=== PATIENT | male | born 1960 | race African-American/Black ===

== ENCOUNTER → 2016-12-02 | Outpatient (CLI) | payer OTHER ==
[~2016-12-02] MED LIST: ACET500C4 PO; ASPI325T; ATEN25; BACL10TA PO; BACTDSB PO; CALC600T2 PO; CETI-260 PO; DIAZ10TA PO; FAMO40TA7 PO; FURO40TA5 PO; LUTE20CA PO; NIAC500C3 PO; OMEP20TA86 PO; POTA8TAB4 PO; SPIR25TA4 PO; VITA1TAB6 PO
[2016-12-02 10:39] VITALS: BP 133/81
== END | disposition home or self-care (01) ==
LOC: HBOWC 09:14
PROVIDERS: ATTEND Emergency Medicine
DX: L89.613 Pressure ulcer of right heel, stage 3 (principal); I89.0 Lymphedema, not elsewhere classified; I87.8 Other specified disorders of veins; G82.20 Paraplegia, unspecified; L84 Corns and callosities; B35.1 Tinea unguium; Z86.718 Personal history of other venous thrombosis and embolism; M62.562 Muscle wasting and atrophy, not elsewhere classified, left lower leg; M62.561 Muscle wasting and atrophy, not elsewhere classified, right lower leg
CPT/HCPCS: 97597

== ENCOUNTER → 2016-12-18 | Outpatient (CLI) | payer OTHER ==
[~2016-12-18] MED LIST changes: +LIDOCAINE HCL 2% 5 ML JELLY TP ONE
[2016-12-18 10:50] VITALS: BP 132/76
== END | disposition home or self-care (01) ==
LOC: HBOWC 10:19
PROVIDERS: ATTEND Emergency Medicine
DX: L89.613 Pressure ulcer of right heel, stage 3 (principal); I89.0 Lymphedema, not elsewhere classified; I87.8 Other specified disorders of veins; G82.20 Paraplegia, unspecified; L84 Corns and callosities; B35.1 Tinea unguium; M62.562 Muscle wasting and atrophy, not elsewhere classified, left lower leg; M62.561 Muscle wasting and atrophy, not elsewhere classified, right lower leg; Z86.718 Personal history of other venous thrombosis and embolism
CPT/HCPCS: 97597

== ENCOUNTER → 2016-12-30 | Outpatient (CLI) | payer OTHER ==
[~2016-12-30] MED LIST changes: -BACTDSB PO; -LIDOCAINE HCL 2% 5 ML JELLY TP ONE
[2016-12-30 12:06] VITALS: BP 118/72
== END | disposition home or self-care (01) ==
LOC: HBOWC 10:43
PROVIDERS: ATTEND Emergency Medicine
DX: L89.613 Pressure ulcer of right heel, stage 3 (principal); L84 Corns and callosities; I89.0 Lymphedema, not elsewhere classified; G82.20 Paraplegia, unspecified; B35.1 Tinea unguium; Z86.718 Personal history of other venous thrombosis and embolism
CPT/HCPCS: 97597

== ENCOUNTER → 2017-01-13 | Outpatient (CLI) | payer OTHER ==
[2017-01-13 10:21] VITALS: BP 121/81
== END | disposition home or self-care (01) ==
LOC: HBOWC 09:28
PROVIDERS: ATTEND Emergency Medicine
DX: L89.613 Pressure ulcer of right heel, stage 3 (principal); G82.20 Paraplegia, unspecified; I89.0 Lymphedema, not elsewhere classified; L84 Corns and callosities; B35.1 Tinea unguium; M62.562 Muscle wasting and atrophy, not elsewhere classified, left lower leg; M62.561 Muscle wasting and atrophy, not elsewhere classified, right lower leg; Z86.718 Personal history of other venous thrombosis and embolism
CPT/HCPCS: 97597

== ENCOUNTER → 2017-01-27 | Outpatient (CLI) | payer OTHER ==
[2017-01-27 11:54] VITALS: BP 125/77
== END | disposition home or self-care (01) ==
LOC: HBOWC 11:12
PROVIDERS: ATTEND Emergency Medicine
DX: L89.613 Pressure ulcer of right heel, stage 3 (principal); I89.0 Lymphedema, not elsewhere classified; G82.20 Paraplegia, unspecified; I87.8 Other specified disorders of veins; B35.1 Tinea unguium; M62.562 Muscle wasting and atrophy, not elsewhere classified, left lower leg; M62.561 Muscle wasting and atrophy, not elsewhere classified, right lower leg; L84 Corns and callosities; Z86.718 Personal history of other venous thrombosis and embolism
CPT/HCPCS: 97597

== ENCOUNTER → 2017-02-10 | Outpatient (CLI) | payer OTHER ==
[2017-02-10 10:13] VITALS: BP 134/81
== END | disposition home or self-care (01) ==
LOC: HBOWC 09:52
PROVIDERS: ATTEND Emergency Medicine
DX: I87.2 Venous insufficiency (chronic) (peripheral) (principal); L89.613 Pressure ulcer of right heel, stage 3; I89.0 Lymphedema, not elsewhere classified; G82.20 Paraplegia, unspecified; L84 Corns and callosities; B35.1 Tinea unguium; Z86.718 Personal history of other venous thrombosis and embolism
CPT/HCPCS: 97597

== ENCOUNTER → 2017-02-24 | Outpatient (CLI) | payer OTHER ==
[~2017-02-24] MED LIST changes: +DOXY100C PO; +PENI250T4 PO
[2017-02-24 10:02] VITALS: BP 138/73
== END | disposition home or self-care (01) ==
LOC: HBOWC 09:07
PROVIDERS: ATTEND Emergency Medicine
DX: L89.613 Pressure ulcer of right heel, stage 3 (principal); I89.0 Lymphedema, not elsewhere classified; I87.2 Venous insufficiency (chronic) (peripheral); L84 Corns and callosities; B35.1 Tinea unguium; M62.562 Muscle wasting and atrophy, not elsewhere classified, left lower leg; M62.561 Muscle wasting and atrophy, not elsewhere classified, right lower leg; Z86.718 Personal history of other venous thrombosis and embolism; G82.20 Paraplegia, unspecified
CPT/HCPCS: 97597

== ENCOUNTER → 2017-03-10 | Outpatient (CLI) | payer OTHER ==
[2017-03-10 11:00] VITALS: BP 136/73
== END | disposition home or self-care (01) ==
LOC: HBOWC 10:21
PROVIDERS: ATTEND Emergency Medicine
DX: L89.613 Pressure ulcer of right heel, stage 3 (principal); I89.0 Lymphedema, not elsewhere classified; G82.20 Paraplegia, unspecified; L84 Corns and callosities; B35.1 Tinea unguium; I87.2 Venous insufficiency (chronic) (peripheral); I87.8 Other specified disorders of veins; Z86.718 Personal history of other venous thrombosis and embolism
CPT/HCPCS: 97597

== ENCOUNTER → 2017-03-25 | Outpatient (CLI) | payer OTHER ==
[~2017-03-25] MED LIST changes: -DOXY100C PO; -PENI250T4 PO
[2017-03-25 09:37] VITALS: BP 127/71
== END | disposition home or self-care (01) ==
LOC: HBOWC 09:22
PROVIDERS: ATTEND Emergency Medicine Undersea and Hyperbaric Medicine
DX: L89.613 Pressure ulcer of right heel, stage 3 (principal); I89.0 Lymphedema, not elsewhere classified; L84 Corns and callosities; G82.20 Paraplegia, unspecified; B35.1 Tinea unguium; I87.2 Venous insufficiency (chronic) (peripheral); Z86.718 Personal history of other venous thrombosis and embolism
CPT/HCPCS: 97597

== ENCOUNTER → 2017-04-07 | Outpatient (CLI) | payer OTHER ==
[~2017-04-07] MED LIST changes: +DOXY100C PO; +PENI250T4 PO
[2017-04-07 09:42] VITALS: BP 117/65
== END | disposition home or self-care (01) ==
LOC: HBOWC 09:10
PROVIDERS: ATTEND Emergency Medicine
DX: L89.613 Pressure ulcer of right heel, stage 3 (principal); L89.629 Pressure ulcer of left heel, unspecified stage; I89.0 Lymphedema, not elsewhere classified; G82.20 Paraplegia, unspecified; M24.575 Contracture, left foot; M24.574 Contracture, right foot; M24.572 Contracture, left ankle; M24.571 Contracture, right ankle; L84 Corns and callosities; B35.1 Tinea unguium; I87.8 Other specified disorders of veins; Z86.718 Personal history of other venous thrombosis and embolism
CPT/HCPCS: 97597

== ENCOUNTER → 2017-04-21 | Outpatient (CLI) | payer OTHER ==
[2017-04-21 12:19] VITALS: BP 123/68
== END | disposition home or self-care (01) ==
LOC: HBOWC 10:00
PROVIDERS: ATTEND Emergency Medicine
DX: I87.2 Venous insufficiency (chronic) (peripheral) (principal); L89.613 Pressure ulcer of right heel, stage 3; I89.0 Lymphedema, not elsewhere classified; G82.20 Paraplegia, unspecified; L84 Corns and callosities; B35.1 Tinea unguium; Z86.718 Personal history of other venous thrombosis and embolism
CPT/HCPCS: 97597

== ENCOUNTER → 2017-05-05 | Outpatient (CLI) | payer OTHER ==
[~2017-05-05] MED LIST changes: +BACTDSB PO; +BARIUM SULFATE 0.1% SUSPENSION 450 ML BOTTLE ONE; +CEPH500 PO; +CEPH500C2 PO; +CIPR-278 PO; +LEVO500 PO; +SULF1TAB42 PO
[2017-05-05 10:32] VITALS: BP 122/71
== END | disposition home or self-care (01) ==
LOC: HBOWC 09:35
PROVIDERS: ATTEND Emergency Medicine
DX: I87.2 Venous insufficiency (chronic) (peripheral) (principal); L89.613 Pressure ulcer of right heel, stage 3; S91.105A Unspecified open wound of left lesser toe(s) without damage to nail, initial encounter; I89.0 Lymphedema, not elsewhere classified; G82.20 Paraplegia, unspecified; L84 Corns and callosities; B35.1 Tinea unguium; Z86.718 Personal history of other venous thrombosis and embolism; X58.XXXA Exposure to other specified factors, initial encounter; Y99.8 Other external cause status; Y92.89 Other specified places as the place of occurrence of the external cause; Y93.89 Activity, other specified
CPT/HCPCS: 97597; Z7610

== ENCOUNTER → 2017-05-19 | Outpatient (CLI) | payer OTHER ==
[~2017-05-19] MED LIST changes: -BACTDSB PO; -BARIUM SULFATE 0.1% SUSPENSION 450 ML BOTTLE ONE; -CEPH500 PO; -CEPH500C2 PO; -CIPR-278 PO; -LEVO500 PO; -SULF1TAB42 PO
[2017-05-19 10:46] VITALS: BP 149/78
== END | disposition home or self-care (01) ==
LOC: HBOWC 10:22
PROVIDERS: ATTEND Emergency Medicine
DX: L89.613 Pressure ulcer of right heel, stage 3 (principal); I89.0 Lymphedema, not elsewhere classified; G82.20 Paraplegia, unspecified; B35.1 Tinea unguium; L84 Corns and callosities; Z86.718 Personal history of other venous thrombosis and embolism
CPT/HCPCS: 97597

== ENCOUNTER → 2017-06-02 | Outpatient (CLI) | payer OTHER ==
[2017-06-02 10:35] VITALS: BP 139/73
== END | disposition home or self-care (01) ==
LOC: HBOWC 10:18
PROVIDERS: ATTEND Emergency Medicine
DX: I87.2 Venous insufficiency (chronic) (peripheral) (principal); L89.613 Pressure ulcer of right heel, stage 3; I89.0 Lymphedema, not elsewhere classified; L84 Corns and callosities; G82.21 Paraplegia, complete; B35.1 Tinea unguium; Z86.718 Personal history of other venous thrombosis and embolism
CPT/HCPCS: 97597

== ENCOUNTER → 2017-06-16 | Outpatient (CLI) | payer OTHER ==
[2017-06-16 10:35] VITALS: BP 141/74
== END | disposition home or self-care (01) ==
LOC: HBOWC 09:05
PROVIDERS: ATTEND Emergency Medicine
DX: I87.2 Venous insufficiency (chronic) (peripheral) (principal); L89.613 Pressure ulcer of right heel, stage 3; I89.0 Lymphedema, not elsewhere classified; L84 Corns and callosities; G82.20 Paraplegia, unspecified; B35.1 Tinea unguium; Z86.718 Personal history of other venous thrombosis and embolism
CPT/HCPCS: 97597

== ENCOUNTER → 2017-07-01 | Outpatient (CLI) | payer OTHER ==
[2017-07-01 10:35] VITALS: BP 126/71
== END | disposition home or self-care (01) ==
LOC: HBOWC 10:24
PROVIDERS: ATTEND Emergency Medicine Undersea and Hyperbaric Medicine
DX: L89.613 Pressure ulcer of right heel, stage 3 (principal); S91.302D Unspecified open wound, left foot, subsequent encounter; S41.101D Unspecified open wound of right upper arm, subsequent encounter; G82.20 Paraplegia, unspecified; I87.2 Venous insufficiency (chronic) (peripheral); L84 Corns and callosities; B35.1 Tinea unguium; I89.0 Lymphedema, not elsewhere classified; Z86.718 Personal history of other venous thrombosis and embolism; X58.XXXD Exposure to other specified factors, subsequent encounter
CPT/HCPCS: 97597

== ENCOUNTER → 2017-07-14 | Outpatient (CLI) | payer OTHER ==
[~2017-07-14] MED LIST changes: +ASPI-1213; -ASPI325T; -CETI-260 PO; +CETI-290 PO; +OMEP20TA25 PO; -OMEP20TA86 PO
[2017-07-14 09:26] VITALS: BP 145/76
== END | disposition home or self-care (01) ==
LOC: HBOWC 09:10
PROVIDERS: ATTEND Surgery Plastic and Reconstructive Surgery
DX: I87.2 Venous insufficiency (chronic) (peripheral) (principal); L89.613 Pressure ulcer of right heel, stage 3; L84 Corns and callosities; I89.0 Lymphedema, not elsewhere classified; G82.20 Paraplegia, unspecified; Z86.718 Personal history of other venous thrombosis and embolism; B35.1 Tinea unguium
CPT/HCPCS: 97597

== ENCOUNTER → 2017-07-21 | Outpatient (CLI) | payer OTHER ==
[~2017-07-21] MED LIST changes: +LIDOCAINE HCL 2% 5 ML JELLY TP ONE
[2017-07-21 14:04] VITALS: BP 141/79
== END | disposition home or self-care (01) ==
LOC: HBOWC 13:17
PROVIDERS: ATTEND Nurse Practitioner Adult Health
DX: L89.613 Pressure ulcer of right heel, stage 3 (principal); I89.0 Lymphedema, not elsewhere classified; B35.1 Tinea unguium; G82.20 Paraplegia, unspecified; L84 Corns and callosities; Z86.718 Personal history of other venous thrombosis and embolism
CPT/HCPCS: 97597

== ENCOUNTER → 2017-07-28 | Outpatient (CLI) | payer OTHER ==
[~2017-07-28] MED LIST changes: -ATEN25; +ATEN25TA; +CLIN300C3 PO
[2017-07-28 09:37] VITALS: BP 154/78
== END | disposition home or self-care (01) ==
LOC: HBOWC 09:06
PROVIDERS: ATTEND Surgery Plastic and Reconstructive Surgery
DX: L89.613 Pressure ulcer of right heel, stage 3 (principal); I89.0 Lymphedema, not elsewhere classified; I87.2 Venous insufficiency (chronic) (peripheral); G82.21 Paraplegia, complete; M24.575 Contracture, left foot; M24.574 Contracture, right foot; L84 Corns and callosities; B35.1 Tinea unguium; Z86.718 Personal history of other venous thrombosis and embolism
CPT/HCPCS: 97597

== ENCOUNTER → 2017-08-11 | Outpatient (CLI) | payer OTHER ==
[~2017-08-11] MED LIST changes: -DOXY100C PO; -LIDOCAINE HCL 2% 5 ML JELLY TP ONE; -PENI250T4 PO
[2017-08-11 08:56] VITALS: BP 139/78
== END | disposition home or self-care (01) ==
LOC: HBOWC 08:25
PROVIDERS: ATTEND Surgery Plastic and Reconstructive Surgery
DX: L89.613 Pressure ulcer of right heel, stage 3 (principal); L84 Corns and callosities; I89.0 Lymphedema, not elsewhere classified; G82.20 Paraplegia, unspecified; Z86.718 Personal history of other venous thrombosis and embolism; B35.1 Tinea unguium
CPT/HCPCS: 97597

== ENCOUNTER → 2017-08-25 | Outpatient (CLI) | payer OTHER ==
[2017-08-25 09:29] VITALS: BP 147/88
== END | disposition home or self-care (01) ==
LOC: HBOWC 09:19
PROVIDERS: ATTEND Surgery Plastic and Reconstructive Surgery
DX: L89.613 Pressure ulcer of right heel, stage 3 (principal); I89.0 Lymphedema, not elsewhere classified; I87.2 Venous insufficiency (chronic) (peripheral); L84 Corns and callosities; G82.21 Paraplegia, complete; Z86.718 Personal history of other venous thrombosis and embolism
CPT/HCPCS: 97597

== ENCOUNTER → 2017-09-08 | Outpatient (CLI) | payer OTHER ==
[~2017-09-08] MED LIST changes: -CLIN300C3 PO
[2017-09-08 10:02] VITALS: BP 137/78
== END | disposition home or self-care (01) ==
LOC: HBOWC 09:38
PROVIDERS: ATTEND Surgery Plastic and Reconstructive Surgery
DX: L89.613 Pressure ulcer of right heel, stage 3 (principal); L84 Corns and callosities; I89.0 Lymphedema, not elsewhere classified; G82.20 Paraplegia, unspecified; Z86.718 Personal history of other venous thrombosis and embolism; I87.2 Venous insufficiency (chronic) (peripheral); B35.1 Tinea unguium
CPT/HCPCS: 97597

== ENCOUNTER → 2017-09-15 | Outpatient (CLI) | payer OTHER ==
[2017-09-15 11:44] VITALS: BP 147/76
== END | disposition home or self-care (01) ==
LOC: HBOWC 10:40
PROVIDERS: ATTEND Surgery Plastic and Reconstructive Surgery
DX: I87.2 Venous insufficiency (chronic) (peripheral) (principal); L89.613 Pressure ulcer of right heel, stage 3; I89.0 Lymphedema, not elsewhere classified; L84 Corns and callosities; G82.21 Paraplegia, complete; M24.572 Contracture, left ankle; M24.571 Contracture, right ankle; Z86.718 Personal history of other venous thrombosis and embolism
CPT/HCPCS: 97597

== ENCOUNTER → 2017-09-29 | Outpatient (CLI) | payer OTHER ==
[2017-09-29 10:49] VITALS: BP 124/80
== END | disposition home or self-care (01) ==
LOC: HBOWC 10:32
PROVIDERS: ATTEND Surgery Plastic and Reconstructive Surgery
DX: L89.613 Pressure ulcer of right heel, stage 3 (principal); I89.0 Lymphedema, not elsewhere classified; G82.20 Paraplegia, unspecified; L84 Corns and callosities; B35.1 Tinea unguium; Z86.718 Personal history of other venous thrombosis and embolism

== ENCOUNTER → 2017-10-13 | Outpatient (CLI) | payer OTHER ==
[2017-10-13 09:59] VITALS: BP 149/84
== END | disposition home or self-care (01) ==
LOC: HBOWC 09:48
PROVIDERS: ATTEND Surgery Plastic and Reconstructive Surgery
DX: L89.613 Pressure ulcer of right heel, stage 3 (principal); I89.0 Lymphedema, not elsewhere classified; L84 Corns and callosities; G82.20 Paraplegia, unspecified; I87.2 Venous insufficiency (chronic) (peripheral); M24.572 Contracture, left ankle; M24.571 Contracture, right ankle; Z86.718 Personal history of other venous thrombosis and embolism
CPT/HCPCS: 97597

== ENCOUNTER → 2017-10-23 | Outpatient (CLI) | payer OTHER ==
[2017-10-23 10:51] VITALS: BP 123/59
== END | disposition home or self-care (01) ==
LOC: HBOWC 10:02
PROVIDERS: ATTEND Nurse Practitioner Adult Health
DX: L89.613 Pressure ulcer of right heel, stage 3 (principal); I89.0 Lymphedema, not elsewhere classified; G82.21 Paraplegia, complete; B35.1 Tinea unguium; I87.2 Venous insufficiency (chronic) (peripheral); L84 Corns and callosities; M24.575 Contracture, left foot; M24.571 Contracture, right ankle; M24.574 Contracture, right foot; M24.572 Contracture, left ankle; Z86.718 Personal history of other venous thrombosis and embolism
CPT/HCPCS: 97597

== ENCOUNTER → 2017-11-06 | Outpatient (CLI) | payer OTHER ==
[2017-11-06 09:38] VITALS: BP 143/74
== END | disposition home or self-care (01) ==
LOC: HBOWC 09:06
PROVIDERS: ATTEND Nurse Practitioner Adult Health
DX: L89.613 Pressure ulcer of right heel, stage 3 (principal); I89.0 Lymphedema, not elsewhere classified; G82.20 Paraplegia, unspecified; L84 Corns and callosities; B35.1 Tinea unguium; Z86.718 Personal history of other venous thrombosis and embolism
CPT/HCPCS: 11042; 97597

== ENCOUNTER → 2017-11-20 | Outpatient (CLI) | payer OTHER ==
[2017-11-20 10:03] VITALS: BP 117/72
== END | disposition home or self-care (01) ==
LOC: HBOWC 09:13
PROVIDERS: ATTEND Nurse Practitioner Adult Health
DX: L89.619 Pressure ulcer of right heel, unspecified stage (principal); T24.212D Burn of second degree of left thigh, subsequent encounter; S71.102D Unspecified open wound, left thigh, subsequent encounter; T31.0 Burns involving less than 10% of body surface; I89.0 Lymphedema, not elsewhere classified; G82.20 Paraplegia, unspecified; B35.1 Tinea unguium; L84 Corns and callosities; Z86.718 Personal history of other venous thrombosis and embolism; X08.8XXD Exposure to other specified smoke, fire and flames, subsequent encounter
CPT/HCPCS: 11042

== ENCOUNTER → 2017-11-27 | Outpatient (CLI) | payer OTHER ==
[2017-11-27 09:43] VITALS: BP 131/73
== END | disposition home or self-care (01) ==
LOC: HBOWC 09:16
PROVIDERS: ATTEND Nurse Practitioner Adult Health
DX: T24.212D Burn of second degree of left thigh, subsequent encounter (principal); L97.411 Non-pressure chronic ulcer of right heel and midfoot limited to breakdown of skin; L89.619 Pressure ulcer of right heel, unspecified stage; L89.519 Pressure ulcer of right ankle, unspecified stage; G82.20 Paraplegia, unspecified; I89.0 Lymphedema, not elsewhere classified; L84 Corns and callosities; B35.1 Tinea unguium; Z86.718 Personal history of other venous thrombosis and embolism; X08.8XXD Exposure to other specified smoke, fire and flames, subsequent encounter
CPT/HCPCS: 11042

== ENCOUNTER → 2017-12-04 | Outpatient (CLI) | payer OTHER ==
[~2017-12-04] MED LIST changes: +LIDOCAINE HCL 2% 5 ML JELLY TP ONE
[2017-12-04 11:01] VITALS: BP 136/67
== END | disposition home or self-care (01) ==
LOC: HBOWC 10:15
PROVIDERS: ATTEND Nurse Practitioner Adult Health
DX: L89.619 Pressure ulcer of right heel, unspecified stage (principal); L89.519 Pressure ulcer of right ankle, unspecified stage; S91.001D Unspecified open wound, right ankle, subsequent encounter; T24.212D Burn of second degree of left thigh, subsequent encounter; I89.0 Lymphedema, not elsewhere classified; G82.20 Paraplegia, unspecified; I87.2 Venous insufficiency (chronic) (peripheral); T31.0 Burns involving less than 10% of body surface; M24.574 Contracture, right foot; M24.572 Contracture, left ankle; M24.571 Contracture, right ankle; M24.575 Contracture, left foot; B35.1 Tinea unguium; L84 Corns and callosities; Z86.718 Personal history of other venous thrombosis and embolism; X08.8XXD Exposure to other specified smoke, fire and flames, subsequent encounter
CPT/HCPCS: 97597

== ENCOUNTER → 2017-12-11 | Outpatient (CLI) | payer OTHER ==
[~2017-12-11] MED LIST changes: -LIDOCAINE HCL 2% 5 ML JELLY TP ONE
[2017-12-11 10:44] VITALS: BP 123/71
== END | disposition home or self-care (01) ==
LOC: HBOWC 10:15
PROVIDERS: ATTEND Nurse Practitioner Adult Health
DX: L89.612 Pressure ulcer of right heel, stage 2 (principal); I87.2 Venous insufficiency (chronic) (peripheral); L97.311 Non-pressure chronic ulcer of right ankle limited to breakdown of skin; T24.212D Burn of second degree of left thigh, subsequent encounter; L84 Corns and callosities; I89.0 Lymphedema, not elsewhere classified; B35.1 Tinea unguium; G82.21 Paraplegia, complete; T31.0 Burns involving less than 10% of body surface; Z86.718 Personal history of other venous thrombosis and embolism; X08.8XXD Exposure to other specified smoke, fire and flames, subsequent encounter
CPT/HCPCS: 11042

== ENCOUNTER → 2017-12-25 | Outpatient (CLI) | payer OTHER ==
[~2017-12-25] MED LIST changes: +LIDOCAINE HCL 2% 5 ML JELLY TP ONE
[2017-12-25 11:53] VITALS: BP 123/70
== END | disposition home or self-care (01) ==
LOC: HBOWC 11:00
PROVIDERS: ATTEND Nurse Practitioner Adult Health
DX: L89.612 Pressure ulcer of right heel, stage 2 (principal); L89.512 Pressure ulcer of right ankle, stage 2; I87.2 Venous insufficiency (chronic) (peripheral); I89.0 Lymphedema, not elsewhere classified; L84 Corns and callosities; B35.1 Tinea unguium; G82.20 Paraplegia, unspecified; Z86.718 Personal history of other venous thrombosis and embolism

== ENCOUNTER → 2018-01-08 | Outpatient (CLI) | payer OTHER ==
[~2018-01-08] MED LIST changes: -LIDOCAINE HCL 2% 5 ML JELLY TP ONE
[2018-01-08 11:05] VITALS: BP 146/84
== END | disposition home or self-care (01) ==
LOC: HBOWC 10:11
PROVIDERS: ATTEND Nurse Practitioner Adult Health
DX: L89.612 Pressure ulcer of right heel, stage 2 (principal); L89.812 Pressure ulcer of head, stage 2; G82.20 Paraplegia, unspecified; I89.0 Lymphedema, not elsewhere classified; I87.2 Venous insufficiency (chronic) (peripheral); L84 Corns and callosities; Z86.718 Personal history of other venous thrombosis and embolism
CPT/HCPCS: 17250

== ENCOUNTER → 2018-01-22 | Outpatient (CLI) | payer OTHER ==
[~2018-01-22] MED LIST changes: +SULF1TAB42 PO
[2018-01-22 10:33] VITALS: BP 115/77
== END | disposition home or self-care (01) ==
LOC: HBOWC 09:32
PROVIDERS: ATTEND Nurse Practitioner Adult Health
DX: L89.612 Pressure ulcer of right heel, stage 2 (principal); L97.311 Non-pressure chronic ulcer of right ankle limited to breakdown of skin; I89.0 Lymphedema, not elsewhere classified; I87.8 Other specified disorders of veins; B35.1 Tinea unguium; L84 Corns and callosities; G82.20 Paraplegia, unspecified; Z86.718 Personal history of other venous thrombosis and embolism
CPT/HCPCS: 97597

== ENCOUNTER → 2018-02-05 | Outpatient (CLI) | payer OTHER ==
[2018-02-05 09:55] VITALS: BP_SYST 129; BP_DIAS 79; BP_DIAS 93
== END | disposition home or self-care (01) ==
LOC: HBOWC 09:29
PROVIDERS: ATTEND Nurse Practitioner Adult Health
DX: L89.612 Pressure ulcer of right heel, stage 2 (principal); L89.512 Pressure ulcer of right ankle, stage 2; I89.0 Lymphedema, not elsewhere classified; L84 Corns and callosities; G82.20 Paraplegia, unspecified; I87.2 Venous insufficiency (chronic) (peripheral); B35.1 Tinea unguium; Z86.718 Personal history of other venous thrombosis and embolism
CPT/HCPCS: 97597

== ENCOUNTER → 2018-02-19 | Outpatient (CLI) | payer OTHER ==
[2018-02-19 10:23] VITALS: BP 114/70
== END | disposition home or self-care (01) ==
LOC: HBOWC 09:29
PROVIDERS: ATTEND Nurse Practitioner Adult Health
DX: L89.612 Pressure ulcer of right heel, stage 2 (principal); I89.0 Lymphedema, not elsewhere classified; G82.20 Paraplegia, unspecified; B35.1 Tinea unguium; I87.2 Venous insufficiency (chronic) (peripheral); Z86.718 Personal history of other venous thrombosis and embolism

== ENCOUNTER → 2018-03-05 | Outpatient (CLI) | payer OTHER ==
[~2018-03-05] MED LIST changes: +BACTDSB PO; +LIDOCAINE HCL 2% 5 ML JELLY TP ONE; +MUPI1OIN5 TP; +MUPIROCIN CALCIUM 2% 22 GM OINTMENT TP ONE; -SPIR25TA4 PO; +SPIR25TA6 PO
[2018-03-05 09:45] VITALS: BP 135/79
== END | disposition home or self-care (01) ==
LOC: HBOWC 09:06
PROVIDERS: ATTEND Nurse Practitioner Adult Health
DX: L89.612 Pressure ulcer of right heel, stage 2 (principal); L89.893 Pressure ulcer of other site, stage 3; S81.802D Unspecified open wound, left lower leg, subsequent encounter; S81.801D Unspecified open wound, right lower leg, subsequent encounter; I87.2 Venous insufficiency (chronic) (peripheral); I89.0 Lymphedema, not elsewhere classified; M24.572 Contracture, left ankle; M24.571 Contracture, right ankle; G82.20 Paraplegia, unspecified; B35.1 Tinea unguium; L84 Corns and callosities; Z86.718 Personal history of other venous thrombosis and embolism; X58.XXXD Exposure to other specified factors, subsequent encounter
CPT/HCPCS: 11042

== ENCOUNTER → 2018-03-12 | Outpatient (CLI) | payer OTHER ==
[~2018-03-12] MED LIST changes: +CHLORHEXIDINE GLUCONATE 4% 118 ML TOPICAL LIQUID TP ONE; -LIDOCAINE HCL 2% 5 ML JELLY TP ONE
[2018-03-12 09:28] VITALS: BP 138/64
== END | disposition home or self-care (01) ==
LOC: HBOWC 08:53
PROVIDERS: ATTEND Nurse Practitioner Adult Health
DX: L89.893 Pressure ulcer of other site, stage 3 (principal); L89.612 Pressure ulcer of right heel, stage 2; I89.0 Lymphedema, not elsewhere classified; G82.20 Paraplegia, unspecified; B35.1 Tinea unguium; I87.2 Venous insufficiency (chronic) (peripheral); Z86.718 Personal history of other venous thrombosis and embolism

== ENCOUNTER → 2018-03-26 | Outpatient (CLI) | payer OTHER ==
[~2018-03-26] MED LIST changes: -CHLORHEXIDINE GLUCONATE 4% 118 ML TOPICAL LIQUID TP ONE; -MUPIROCIN CALCIUM 2% 22 GM OINTMENT TP ONE; +SPIR25TA4 PO; -SPIR25TA6 PO
[2018-03-26 09:26] VITALS: BP 133/69
== END | disposition home or self-care (01) ==
LOC: HBOWC 09:08
PROVIDERS: ATTEND Nurse Practitioner Adult Health
DX: L89.893 Pressure ulcer of other site, stage 3 (principal); L89.612 Pressure ulcer of right heel, stage 2; S81.801D Unspecified open wound, right lower leg, subsequent encounter; S81.802D Unspecified open wound, left lower leg, subsequent encounter; I89.0 Lymphedema, not elsewhere classified; G82.20 Paraplegia, unspecified; L84 Corns and callosities; B35.1 Tinea unguium; I87.2 Venous insufficiency (chronic) (peripheral); M24.572 Contracture, left ankle; M24.571 Contracture, right ankle; Z86.718 Personal history of other venous thrombosis and embolism; X58.XXXD Exposure to other specified factors, subsequent encounter

== ENCOUNTER → 2018-04-09 | Outpatient (CLI) | payer OTHER ==
[~2018-04-09] MED LIST changes: -SPIR25TA4 PO; +SPIR25TA6 PO
[2018-04-09 10:00] VITALS: BP 147/70
== END | disposition home or self-care (01) ==
LOC: HBOWC 09:22
PROVIDERS: ATTEND Nurse Practitioner Adult Health
DX: L89.612 Pressure ulcer of right heel, stage 2 (principal); L89.893 Pressure ulcer of other site, stage 3; I89.0 Lymphedema, not elsewhere classified; G82.20 Paraplegia, unspecified; I87.2 Venous insufficiency (chronic) (peripheral); L84 Corns and callosities; B35.1 Tinea unguium; Z86.718 Personal history of other venous thrombosis and embolism

== ENCOUNTER → 2018-04-23 | Outpatient (CLI) | payer OTHER ==
[2018-04-23 09:45] VITALS: BP 133/66
== END | disposition home or self-care (01) ==
LOC: HBOWC 09:22
PROVIDERS: ATTEND Nurse Practitioner Adult Health
DX: L89.612 Pressure ulcer of right heel, stage 2 (principal); L89.893 Pressure ulcer of other site, stage 3; I89.0 Lymphedema, not elsewhere classified; G82.20 Paraplegia, unspecified; I87.2 Venous insufficiency (chronic) (peripheral); L84 Corns and callosities; B35.1 Tinea unguium; Z86.718 Personal history of other venous thrombosis and embolism
CPT/HCPCS: 11042

== ENCOUNTER → 2018-05-07 | Outpatient (CLI) | payer OTHER ==
[2018-05-07 09:25] VITALS: BP 124/68
== END | disposition home or self-care (01) ==
LOC: HBOWC 08:48
PROVIDERS: ATTEND Nurse Practitioner Adult Health
DX: L89.612 Pressure ulcer of right heel, stage 2 (principal); I89.0 Lymphedema, not elsewhere classified; G82.20 Paraplegia, unspecified; I87.2 Venous insufficiency (chronic) (peripheral); L84 Corns and callosities; B35.1 Tinea unguium; Z86.718 Personal history of other venous thrombosis and embolism

== ENCOUNTER → 2018-05-21 | Outpatient (CLI) | payer OTHER ==
[~2018-05-21] MED LIST changes: +CALC200T42 PO; +MET500 PO; +VITAMIN D PO; +ZINC50TA64 PO
[2018-05-21 09:43] VITALS: BP 137/90
== END | disposition home or self-care (01) ==
LOC: HBOWC 09:12
PROVIDERS: ATTEND Nurse Practitioner Adult Health
DX: L89.612 Pressure ulcer of right heel, stage 2 (principal); I89.0 Lymphedema, not elsewhere classified; G82.20 Paraplegia, unspecified; I87.2 Venous insufficiency (chronic) (peripheral); L84 Corns and callosities; B35.1 Tinea unguium; Z86.718 Personal history of other venous thrombosis and embolism

== ENCOUNTER → 2018-06-04 | Outpatient (CLI) | payer OTHER ==
[~2018-06-04] MED LIST changes: -ASPI-1213; -BACL10TA PO; -BACTDSB PO; -CALC600T2 PO; -DIAZ10TA PO; -FAMO40TA7 PO; -LUTE20CA PO; -MUPI1OIN5 TP; -NIAC500C3 PO; -OMEP20TA25 PO; -SPIR25TA6 PO; -SULF1TAB42 PO; -VITA1TAB6 PO
[2018-06-04 11:25] VITALS: BP 134/69
== END | disposition home or self-care (01) ==
LOC: HBOWC 11:09
PROVIDERS: ATTEND Nurse Practitioner Adult Health
DX: L89.612 Pressure ulcer of right heel, stage 2 (principal); I89.0 Lymphedema, not elsewhere classified; G82.20 Paraplegia, unspecified; I87.2 Venous insufficiency (chronic) (peripheral); L84 Corns and callosities; B35.1 Tinea unguium; Z86.718 Personal history of other venous thrombosis and embolism
CPT/HCPCS: 97597

== ENCOUNTER → 2018-06-18 | Outpatient (CLI) | payer OTHER ==
[2018-06-18 09:46] VITALS: BP 143/67
== END | disposition home or self-care (01) ==
LOC: HBOWC 09:09
PROVIDERS: ATTEND Nurse Practitioner Adult Health
DX: L89.612 Pressure ulcer of right heel, stage 2 (principal); I89.0 Lymphedema, not elsewhere classified; G82.20 Paraplegia, unspecified; I87.2 Venous insufficiency (chronic) (peripheral); L84 Corns and callosities; B35.1 Tinea unguium; Z86.718 Personal history of other venous thrombosis and embolism

== ENCOUNTER → 2018-07-16 | Outpatient (CLI) | payer OTHER ==
[2018-07-16 10:01] VITALS: BP 139/60
== END | disposition home or self-care (01) ==
LOC: HBOWC 09:09
PROVIDERS: ATTEND Nurse Practitioner Adult Health
DX: L89.612 Pressure ulcer of right heel, stage 2 (principal); I89.0 Lymphedema, not elsewhere classified; G82.20 Paraplegia, unspecified; I87.2 Venous insufficiency (chronic) (peripheral); L84 Corns and callosities; B35.1 Tinea unguium; Z86.718 Personal history of other venous thrombosis and embolism

== ENCOUNTER → 2018-07-30 | Outpatient (CLI) | payer OTHER ==
[~2018-07-30] MED LIST changes: +MUPI15CR TP
[2018-07-30 09:51] VITALS: BP 133/62
== END | disposition home or self-care (01) ==
LOC: HBOWC 09:00
PROVIDERS: ATTEND Nurse Practitioner Adult Health
DX: L89.612 Pressure ulcer of right heel, stage 2 (principal); I89.0 Lymphedema, not elsewhere classified; G82.20 Paraplegia, unspecified; I87.2 Venous insufficiency (chronic) (peripheral); L84 Corns and callosities; B35.1 Tinea unguium; Z86.718 Personal history of other venous thrombosis and embolism
CPT/HCPCS: 97597

== ENCOUNTER → 2018-08-13 | Outpatient (CLI) | payer OTHER ==
[2018-08-13 10:00] VITALS: BP 121/79
== END | disposition home or self-care (01) ==
LOC: HBOWC 09:02
PROVIDERS: ATTEND Nurse Practitioner Adult Health
DX: L89.612 Pressure ulcer of right heel, stage 2 (principal); I89.0 Lymphedema, not elsewhere classified; G82.20 Paraplegia, unspecified; I87.2 Venous insufficiency (chronic) (peripheral); L84 Corns and callosities; B35.1 Tinea unguium; Z86.718 Personal history of other venous thrombosis and embolism

== ENCOUNTER → 2018-08-27 | Outpatient (CLI) | payer OTHER ==
[2018-08-27 09:50] VITALS: BP 128/67
== END | disposition home or self-care (01) ==
LOC: HBOWC 09:07
PROVIDERS: ATTEND Nurse Practitioner Adult Health
DX: L89.612 Pressure ulcer of right heel, stage 2 (principal); I89.0 Lymphedema, not elsewhere classified; G82.20 Paraplegia, unspecified; I87.2 Venous insufficiency (chronic) (peripheral); L84 Corns and callosities; B35.1 Tinea unguium; Z86.718 Personal history of other venous thrombosis and embolism
CPT/HCPCS: 97597

== ENCOUNTER → 2018-09-03 | Outpatient (CLI) | payer OTHER ==
[2018-09-03 10:12] VITALS: BP 147/72
== END | disposition home or self-care (01) ==
LOC: HBOWC 09:23
PROVIDERS: ATTEND Nurse Practitioner Adult Health
DX: L89.612 Pressure ulcer of right heel, stage 2 (principal); I89.0 Lymphedema, not elsewhere classified; I87.2 Venous insufficiency (chronic) (peripheral); L84 Corns and callosities; Z86.718 Personal history of other venous thrombosis and embolism
CPT/HCPCS: 97597

== ENCOUNTER → 2018-09-10 | Outpatient (CLI) | payer OTHER ==
[2018-09-10 09:59] VITALS: BP 137/73
== END | disposition home or self-care (01) ==
LOC: HBOWC 09:08
PROVIDERS: ATTEND Nurse Practitioner Adult Health
DX: L89.612 Pressure ulcer of right heel, stage 2 (principal); I89.0 Lymphedema, not elsewhere classified; I87.2 Venous insufficiency (chronic) (peripheral); L84 Corns and callosities; B35.1 Tinea unguium; Z86.718 Personal history of other venous thrombosis and embolism

== ENCOUNTER → 2018-09-24 | Outpatient (CLI) | payer OTHER ==
[2018-09-24 10:00] VITALS: BP 106/62
== END | disposition home or self-care (01) ==
LOC: HBOWC 09:17
PROVIDERS: ATTEND Nurse Practitioner Adult Health
DX: L89.612 Pressure ulcer of right heel, stage 2 (principal); I89.0 Lymphedema, not elsewhere classified; I87.2 Venous insufficiency (chronic) (peripheral); L84 Corns and callosities; B35.1 Tinea unguium; Z86.718 Personal history of other venous thrombosis and embolism
CPT/HCPCS: 97597

== ENCOUNTER → 2018-10-08 | Outpatient (CLI) | payer OTHER ==
[~2018-10-08] MED LIST changes: +LEVO500 PO; +OXYC-530 PO
[2018-10-08 09:59] VITALS: BP 119/59
== END | disposition home or self-care (01) ==
LOC: HBOWC 09:22
PROVIDERS: ATTEND Nurse Practitioner Adult Health
DX: L89.612 Pressure ulcer of right heel, stage 2 (principal); I89.0 Lymphedema, not elsewhere classified; I87.2 Venous insufficiency (chronic) (peripheral); L84 Corns and callosities; Z86.73 Personal history of transient ischemic attack (TIA), and cerebral infarction without residual deficits
CPT/HCPCS: 97597

== ENCOUNTER → 2018-10-15 | Outpatient (CLI) | payer OTHER ==
[~2018-10-15] MED LIST changes: -MUPI15CR TP
[2018-10-15 10:00] VITALS: BP 133/68
== END | disposition home or self-care (01) ==
LOC: HBOWC 09:26
PROVIDERS: ATTEND Nurse Practitioner Adult Health
DX: L89.612 Pressure ulcer of right heel, stage 2 (principal); S81.001A Unspecified open wound, right knee, initial encounter; I89.0 Lymphedema, not elsewhere classified; I87.2 Venous insufficiency (chronic) (peripheral); L84 Corns and callosities; G82.20 Paraplegia, unspecified; Z86.73 Personal history of transient ischemic attack (TIA), and cerebral infarction without residual deficits; Z86.718 Personal history of other venous thrombosis and embolism; X58.XXXA Exposure to other specified factors, initial encounter; Y93.89 Activity, other specified; Y92.89 Other specified places as the place of occurrence of the external cause; Y99.8 Other external cause status

== ENCOUNTER → 2018-10-29 | Outpatient (CLI) | payer OTHER ==
[~2018-10-29] MED LIST changes: +CETI-170 PO; -CETI-290 PO
[2018-10-29 10:15] VITALS: BP 132/78
== END | disposition home or self-care (01) ==
LOC: HBOWC 09:04
PROVIDERS: ATTEND Nurse Practitioner Adult Health
DX: L89.612 Pressure ulcer of right heel, stage 2 (principal); I89.0 Lymphedema, not elsewhere classified; I87.2 Venous insufficiency (chronic) (peripheral); G82.20 Paraplegia, unspecified; M62.50 Muscle wasting and atrophy, not elsewhere classified, unspecified site; L84 Corns and callosities; Z86.718 Personal history of other venous thrombosis and embolism; Z86.73 Personal history of transient ischemic attack (TIA), and cerebral infarction without residual deficits

== ENCOUNTER → 2018-11-05 | Outpatient (CLI) | payer OTHER ==
[2018-11-05 10:00] VITALS: BP 125/58
== END | disposition home or self-care (01) ==
LOC: HBOWC 09:04
PROVIDERS: ATTEND Nurse Practitioner Adult Health
DX: L89.612 Pressure ulcer of right heel, stage 2 (principal); I89.0 Lymphedema, not elsewhere classified; I87.2 Venous insufficiency (chronic) (peripheral); G82.20 Paraplegia, unspecified; L84 Corns and callosities; Z86.718 Personal history of other venous thrombosis and embolism; Z86.73 Personal history of transient ischemic attack (TIA), and cerebral infarction without residual deficits
CPT/HCPCS: 11042; 97597

== ENCOUNTER → 2018-11-12 | Outpatient (CLI) | payer OTHER ==
[~2018-11-12] MED LIST changes: +LIDOCAINE 4% 50 ML SOLUTION TP ONE
[2018-11-12 10:25] VITALS: BP 119/74
== END | disposition home or self-care (01) ==
LOC: HBOWC 09:11
PROVIDERS: ATTEND Nurse Practitioner Adult Health
DX: L89.612 Pressure ulcer of right heel, stage 2 (principal); I89.0 Lymphedema, not elsewhere classified; I87.2 Venous insufficiency (chronic) (peripheral); L84 Corns and callosities; M62.50 Muscle wasting and atrophy, not elsewhere classified, unspecified site; G82.20 Paraplegia, unspecified; Z86.73 Personal history of transient ischemic attack (TIA), and cerebral infarction without residual deficits; Z86.718 Personal history of other venous thrombosis and embolism
CPT/HCPCS: 97597

== ENCOUNTER → 2018-11-19 | Outpatient (CLI) | payer OTHER ==
[~2018-11-19] MED LIST changes: +LIDOCAINE 2% 5 ML JELLY TP ONE; -LIDOCAINE 4% 50 ML SOLUTION TP ONE
[2018-11-19 10:00] VITALS: BP 141/74
== END | disposition home or self-care (01) ==
LOC: HBOWC 09:27
PROVIDERS: ATTEND Nurse Practitioner Adult Health
DX: L89.612 Pressure ulcer of right heel, stage 2 (principal); I89.0 Lymphedema, not elsewhere classified; I87.2 Venous insufficiency (chronic) (peripheral); L84 Corns and callosities; G82.20 Paraplegia, unspecified; Z86.718 Personal history of other venous thrombosis and embolism; Z86.73 Personal history of transient ischemic attack (TIA), and cerebral infarction without residual deficits
CPT/HCPCS: 97597

== ENCOUNTER → 2018-11-26 | Outpatient (CLI) | payer OTHER ==
[~2018-11-26] MED LIST changes: -LIDOCAINE 2% 5 ML JELLY TP ONE
[2018-11-26 09:56] VITALS: BP 154/78
== END | disposition home or self-care (01) ==
LOC: HBOWC 09:35
PROVIDERS: ATTEND Nurse Practitioner Adult Health
DX: L89.612 Pressure ulcer of right heel, stage 2 (principal); I89.0 Lymphedema, not elsewhere classified; I87.2 Venous insufficiency (chronic) (peripheral); L84 Corns and callosities; G82.20 Paraplegia, unspecified; Z86.718 Personal history of other venous thrombosis and embolism; Z86.73 Personal history of transient ischemic attack (TIA), and cerebral infarction without residual deficits
CPT/HCPCS: 97597

== ENCOUNTER → 2018-12-03 | Outpatient (CLI) | payer OTHER ==
[2018-12-03 10:00] VITALS: BP 107/68
== END | disposition home or self-care (01) ==
LOC: HBOWC 09:20
PROVIDERS: ATTEND Nurse Practitioner Adult Health
DX: L89.612 Pressure ulcer of right heel, stage 2 (principal); I87.2 Venous insufficiency (chronic) (peripheral); I89.0 Lymphedema, not elsewhere classified; L84 Corns and callosities; M62.569 Muscle wasting and atrophy, not elsewhere classified, unspecified lower leg; G82.20 Paraplegia, unspecified; Z86.718 Personal history of other venous thrombosis and embolism; Z86.73 Personal history of transient ischemic attack (TIA), and cerebral infarction without residual deficits
CPT/HCPCS: 97597

== ENCOUNTER → 2018-12-10 | Outpatient (CLI) | payer OTHER ==
[2018-12-10 10:28] VITALS: BP 122/76
== END | disposition home or self-care (01) ==
LOC: HBOWC 09:36
PROVIDERS: ATTEND Nurse Practitioner Adult Health
DX: L89.612 Pressure ulcer of right heel, stage 2 (principal); I89.0 Lymphedema, not elsewhere classified; I87.2 Venous insufficiency (chronic) (peripheral); L84 Corns and callosities; G82.20 Paraplegia, unspecified; Z86.718 Personal history of other venous thrombosis and embolism; Z86.73 Personal history of transient ischemic attack (TIA), and cerebral infarction without residual deficits
CPT/HCPCS: 97597

== ENCOUNTER → 2018-12-17 | Outpatient (CLI) | payer OTHER ==
[2018-12-17 11:00] VITALS: BP 107/75
== END | disposition home or self-care (01) ==
LOC: HBOWC 10:53
PROVIDERS: ATTEND Nurse Practitioner Adult Health
DX: L89.612 Pressure ulcer of right heel, stage 2 (principal); I89.0 Lymphedema, not elsewhere classified; I87.2 Venous insufficiency (chronic) (peripheral); G82.20 Paraplegia, unspecified; L84 Corns and callosities; Z86.718 Personal history of other venous thrombosis and embolism; Z86.73 Personal history of transient ischemic attack (TIA), and cerebral infarction without residual deficits
CPT/HCPCS: 97597

== ENCOUNTER → 2018-12-24 | Outpatient (CLI) | payer OTHER ==
[~2018-12-24] MED LIST changes: -CETI-170 PO; +CETI10TA59 PO
[2018-12-24 10:37] VITALS: BP 120/68
== END | disposition home or self-care (01) ==
LOC: HBOWC 09:30
PROVIDERS: ATTEND Nurse Practitioner Adult Health
DX: L89.612 Pressure ulcer of right heel, stage 2 (principal); S90.412A Abrasion, left great toe, initial encounter; L84 Corns and callosities; I89.0 Lymphedema, not elsewhere classified; I87.2 Venous insufficiency (chronic) (peripheral); G82.20 Paraplegia, unspecified; Z86.73 Personal history of transient ischemic attack (TIA), and cerebral infarction without residual deficits; Z86.718 Personal history of other venous thrombosis and embolism; X58.XXXA Exposure to other specified factors, initial encounter; Y93.89 Activity, other specified; Y92.89 Other specified places as the place of occurrence of the external cause; Y99.8 Other external cause status
CPT/HCPCS: 97605

== ENCOUNTER → 2018-12-31 | Outpatient (CLI) | payer OTHER ==
[2018-12-31 10:42] VITALS: BP 128/72
== END | disposition home or self-care (01) ==
LOC: HBOWC 09:19
PROVIDERS: ATTEND Nurse Practitioner Adult Health
DX: L89.612 Pressure ulcer of right heel, stage 2 (principal); S90.412D Abrasion, left great toe, subsequent encounter; I89.0 Lymphedema, not elsewhere classified; I87.2 Venous insufficiency (chronic) (peripheral); G82.20 Paraplegia, unspecified; M62.572 Muscle wasting and atrophy, not elsewhere classified, left ankle and foot; M62.571 Muscle wasting and atrophy, not elsewhere classified, right ankle and foot; L84 Corns and callosities; M24.572 Contracture, left ankle; M24.571 Contracture, right ankle; M24.575 Contracture, left foot; M24.574 Contracture, right foot; Z86.73 Personal history of transient ischemic attack (TIA), and cerebral infarction without residual deficits; Z86.718 Personal history of other venous thrombosis and embolism; X58.XXXD Exposure to other specified factors, subsequent encounter
CPT/HCPCS: 97597

== ENCOUNTER → 2019-01-07 | Outpatient (CLI) | payer OTHER ==
[2019-01-07 09:10] VITALS: BP 131/68
== END | disposition home or self-care (01) ==
LOC: HBOWC 09:03
PROVIDERS: ATTEND Nurse Practitioner Adult Health
DX: L89.612 Pressure ulcer of right heel, stage 2 (principal); S90.412D Abrasion, left great toe, subsequent encounter; I89.0 Lymphedema, not elsewhere classified; I87.2 Venous insufficiency (chronic) (peripheral); G82.20 Paraplegia, unspecified; M62.572 Muscle wasting and atrophy, not elsewhere classified, left ankle and foot; M62.571 Muscle wasting and atrophy, not elsewhere classified, right ankle and foot; L84 Corns and callosities; M24.572 Contracture, left ankle; M24.575 Contracture, left foot; M24.574 Contracture, right foot; Z86.718 Personal history of other venous thrombosis and embolism; X58.XXXD Exposure to other specified factors, subsequent encounter
CPT/HCPCS: 97597

== ENCOUNTER → 2019-01-14 | Outpatient (CLI) | payer OTHER ==
[2019-01-14 10:20] VITALS: BP 132/90
== END | disposition home or self-care (01) ==
LOC: HBOWC 08:39
PROVIDERS: ATTEND Nurse Practitioner Adult Health
DX: L89.612 Pressure ulcer of right heel, stage 2 (principal); S90.412D Abrasion, left great toe, subsequent encounter; I89.0 Lymphedema, not elsewhere classified; I87.2 Venous insufficiency (chronic) (peripheral); L84 Corns and callosities; M62.562 Muscle wasting and atrophy, not elsewhere classified, left lower leg; M62.561 Muscle wasting and atrophy, not elsewhere classified, right lower leg; M24.572 Contracture, left ankle; M24.571 Contracture, right ankle; M24.574 Contracture, right foot; M24.575 Contracture, left foot; G82.20 Paraplegia, unspecified; Z86.718 Personal history of other venous thrombosis and embolism; Z86.73 Personal history of transient ischemic attack (TIA), and cerebral infarction without residual deficits; X58.XXXD Exposure to other specified factors, subsequent encounter
CPT/HCPCS: 97597

== ENCOUNTER → 2019-01-21 | Outpatient (CLI) | payer OTHER ==
[2019-01-21 09:56] VITALS: BP 131/64
== END | disposition home or self-care (01) ==
LOC: HBOWC 09:14
PROVIDERS: ATTEND Nurse Practitioner Adult Health
DX: L89.612 Pressure ulcer of right heel, stage 2 (principal); S90.412D Abrasion, left great toe, subsequent encounter; I89.0 Lymphedema, not elsewhere classified; I87.2 Venous insufficiency (chronic) (peripheral); L84 Corns and callosities; M24.575 Contracture, left foot; M24.574 Contracture, right foot; M24.571 Contracture, right ankle; M24.572 Contracture, left ankle; G82.20 Paraplegia, unspecified; Z86.718 Personal history of other venous thrombosis and embolism; Z86.73 Personal history of transient ischemic attack (TIA), and cerebral infarction without residual deficits; X58.XXXD Exposure to other specified factors, subsequent encounter

== ENCOUNTER → 2019-01-28 | Outpatient (CLI) | payer OTHER ==
[2019-01-28 10:17] VITALS: BP 130/76
== END | disposition home or self-care (01) ==
LOC: HBOWC 09:18
PROVIDERS: ATTEND Nurse Practitioner Adult Health
DX: L89.612 Pressure ulcer of right heel, stage 2 (principal); S90.412D Abrasion, left great toe, subsequent encounter; I89.0 Lymphedema, not elsewhere classified; I87.2 Venous insufficiency (chronic) (peripheral); L84 Corns and callosities; M24.575 Contracture, left foot; M24.574 Contracture, right foot; M24.571 Contracture, right ankle; M24.572 Contracture, left ankle; M62.562 Muscle wasting and atrophy, not elsewhere classified, left lower leg; M62.561 Muscle wasting and atrophy, not elsewhere classified, right lower leg; G82.20 Paraplegia, unspecified; Z86.73 Personal history of transient ischemic attack (TIA), and cerebral infarction without residual deficits; Z86.718 Personal history of other venous thrombosis and embolism; X58.XXXD Exposure to other specified factors, subsequent encounter

== ENCOUNTER → 2019-02-01 | Outpatient (CLI) | payer OTHER | END | disposition home or self-care (01) | LOC: RADPV 12:04 | PROVIDERS: ATTEND Nurse Practitioner Adult Health | DX: L89.612 Pressure ulcer of right heel, stage 2 (principal) | CPT/HCPCS: 93925; 93970 ==

== ENCOUNTER → 2019-02-04 | Outpatient (CLI) | payer OTHER ==
[2019-02-04 09:50] VITALS: BP 147/80
== END | disposition home or self-care (01) ==
LOC: HBOWC 09:14
PROVIDERS: ATTEND Nurse Practitioner Adult Health
DX: L89.612 Pressure ulcer of right heel, stage 2 (principal); L97.521 Non-pressure chronic ulcer of other part of left foot limited to breakdown of skin; I89.0 Lymphedema, not elsewhere classified; I87.2 Venous insufficiency (chronic) (peripheral); L84 Corns and callosities; M24.574 Contracture, right foot; M24.575 Contracture, left foot; M24.572 Contracture, left ankle; M24.571 Contracture, right ankle; G82.20 Paraplegia, unspecified; M62.562 Muscle wasting and atrophy, not elsewhere classified, left lower leg; M62.561 Muscle wasting and atrophy, not elsewhere classified, right lower leg; Z86.73 Personal history of transient ischemic attack (TIA), and cerebral infarction without residual deficits; Z86.718 Personal history of other venous thrombosis and embolism

== ENCOUNTER → 2019-02-11 | Outpatient (CLI) | payer OTHER ==
[2019-02-11 10:00] VITALS: BP 109/70
== END | disposition home or self-care (01) ==
LOC: HBOWC 09:16
PROVIDERS: ATTEND Nurse Practitioner Adult Health
DX: L89.612 Pressure ulcer of right heel, stage 2 (principal); L97.521 Non-pressure chronic ulcer of other part of left foot limited to breakdown of skin; I89.0 Lymphedema, not elsewhere classified; I87.2 Venous insufficiency (chronic) (peripheral); L84 Corns and callosities; M24.575 Contracture, left foot; M24.574 Contracture, right foot; M24.571 Contracture, right ankle; M24.572 Contracture, left ankle; G82.20 Paraplegia, unspecified; M62.562 Muscle wasting and atrophy, not elsewhere classified, left lower leg; M62.561 Muscle wasting and atrophy, not elsewhere classified, right lower leg; Z86.718 Personal history of other venous thrombosis and embolism; Z86.73 Personal history of transient ischemic attack (TIA), and cerebral infarction without residual deficits

== ENCOUNTER → 2019-02-18 | Outpatient (CLI) | payer OTHER ==
[2019-02-18 10:06] VITALS: BP 124/76
== END | disposition home or self-care (01) ==
LOC: HBOWC 08:55
PROVIDERS: ATTEND Nurse Practitioner Adult Health
DX: L89.612 Pressure ulcer of right heel, stage 2 (principal); L97.521 Non-pressure chronic ulcer of other part of left foot limited to breakdown of skin; I89.0 Lymphedema, not elsewhere classified; I87.2 Venous insufficiency (chronic) (peripheral); L84 Corns and callosities; M24.575 Contracture, left foot; M24.574 Contracture, right foot; M24.571 Contracture, right ankle; M24.572 Contracture, left ankle; G82.20 Paraplegia, unspecified; M62.562 Muscle wasting and atrophy, not elsewhere classified, left lower leg; M62.561 Muscle wasting and atrophy, not elsewhere classified, right lower leg; Z86.718 Personal history of other venous thrombosis and embolism; Z86.73 Personal history of transient ischemic attack (TIA), and cerebral infarction without residual deficits

== ENCOUNTER → 2019-02-25 | Outpatient (CLI) | payer OTHER ==
[2019-02-25 10:00] VITALS: BP 140/75
== END | disposition home or self-care (01) ==
LOC: HBOWC 09:13
PROVIDERS: ATTEND Nurse Practitioner Adult Health
DX: L89.612 Pressure ulcer of right heel, stage 2 (principal); L97.521 Non-pressure chronic ulcer of other part of left foot limited to breakdown of skin; I89.0 Lymphedema, not elsewhere classified; I87.2 Venous insufficiency (chronic) (peripheral); L84 Corns and callosities; M24.575 Contracture, left foot; M24.574 Contracture, right foot; M24.571 Contracture, right ankle; M24.572 Contracture, left ankle; G82.20 Paraplegia, unspecified; M62.562 Muscle wasting and atrophy, not elsewhere classified, left lower leg; M62.561 Muscle wasting and atrophy, not elsewhere classified, right lower leg; Z86.718 Personal history of other venous thrombosis and embolism; Z86.73 Personal history of transient ischemic attack (TIA), and cerebral infarction without residual deficits

== ENCOUNTER → 2019-03-04 | Outpatient (CLI) | payer OTHER ==
[2019-03-04 09:38] VITALS: BP 144/66
== END | disposition home or self-care (01) ==
LOC: HBOWC 08:11
PROVIDERS: ATTEND Nurse Practitioner Adult Health
DX: L89.612 Pressure ulcer of right heel, stage 2 (principal); L97.521 Non-pressure chronic ulcer of other part of left foot limited to breakdown of skin; I89.0 Lymphedema, not elsewhere classified; I87.2 Venous insufficiency (chronic) (peripheral); L84 Corns and callosities; M24.575 Contracture, left foot; M24.574 Contracture, right foot; M24.571 Contracture, right ankle; M24.572 Contracture, left ankle; G82.20 Paraplegia, unspecified; M62.562 Muscle wasting and atrophy, not elsewhere classified, left lower leg; M62.561 Muscle wasting and atrophy, not elsewhere classified, right lower leg; Z86.718 Personal history of other venous thrombosis and embolism; Z86.73 Personal history of transient ischemic attack (TIA), and cerebral infarction without residual deficits

== ENCOUNTER → 2019-03-11 | Outpatient (CLI) | payer OTHER ==
[2019-03-11 09:42] VITALS: BP 132/74
== END | disposition home or self-care (01) ==
LOC: HBOWC 09:12
PROVIDERS: ATTEND Nurse Practitioner Adult Health
DX: L89.612 Pressure ulcer of right heel, stage 2 (principal); L97.521 Non-pressure chronic ulcer of other part of left foot limited to breakdown of skin; I89.0 Lymphedema, not elsewhere classified; I87.2 Venous insufficiency (chronic) (peripheral); L84 Corns and callosities; M24.575 Contracture, left foot; M24.574 Contracture, right foot; M24.571 Contracture, right ankle; M24.572 Contracture, left ankle; M62.561 Muscle wasting and atrophy, not elsewhere classified, right lower leg; Z86.718 Personal history of other venous thrombosis and embolism; Z86.73 Personal history of transient ischemic attack (TIA), and cerebral infarction without residual deficits

== ENCOUNTER → 2019-03-18 | Outpatient (CLI) | payer OTHER ==
[2019-03-18 10:24] VITALS: BP 128/70
== END | disposition home or self-care (01) ==
LOC: HBOWC 09:20
PROVIDERS: ATTEND Nurse Practitioner Adult Health
DX: L89.612 Pressure ulcer of right heel, stage 2 (principal); L97.521 Non-pressure chronic ulcer of other part of left foot limited to breakdown of skin; I89.0 Lymphedema, not elsewhere classified; I87.2 Venous insufficiency (chronic) (peripheral); L84 Corns and callosities; M24.575 Contracture, left foot; M24.574 Contracture, right foot; M24.571 Contracture, right ankle; M24.572 Contracture, left ankle; M62.561 Muscle wasting and atrophy, not elsewhere classified, right lower leg; Z86.718 Personal history of other venous thrombosis and embolism; Z86.73 Personal history of transient ischemic attack (TIA), and cerebral infarction without residual deficits

== ENCOUNTER → 2019-04-01 | Outpatient (CLI) | payer OTHER ==
[2019-04-01 09:30] VITALS: BP 155/74
== END | disposition home or self-care (01) ==
LOC: HBOWC 09:09
PROVIDERS: ATTEND Nurse Practitioner Adult Health
DX: L89.612 Pressure ulcer of right heel, stage 2 (principal); L97.521 Non-pressure chronic ulcer of other part of left foot limited to breakdown of skin; I89.0 Lymphedema, not elsewhere classified; I87.2 Venous insufficiency (chronic) (peripheral); L84 Corns and callosities; M24.575 Contracture, left foot; M24.574 Contracture, right foot; M24.571 Contracture, right ankle; M24.572 Contracture, left ankle; M62.561 Muscle wasting and atrophy, not elsewhere classified, right lower leg; Z86.718 Personal history of other venous thrombosis and embolism; Z86.73 Personal history of transient ischemic attack (TIA), and cerebral infarction without residual deficits
CPT/HCPCS: 97597

== ENCOUNTER → 2019-04-08 | Outpatient (CLI) | payer OTHER ==
[2019-04-08 11:47] VITALS: BP 142/77
== END | disposition home or self-care (01) ==
LOC: HBOWC 09:24
PROVIDERS: ATTEND Nurse Practitioner Adult Health
DX: L89.612 Pressure ulcer of right heel, stage 2 (principal); L97.521 Non-pressure chronic ulcer of other part of left foot limited to breakdown of skin; I89.0 Lymphedema, not elsewhere classified; I87.2 Venous insufficiency (chronic) (peripheral); L84 Corns and callosities; M24.575 Contracture, left foot; M24.574 Contracture, right foot; M24.571 Contracture, right ankle; M24.572 Contracture, left ankle; M62.561 Muscle wasting and atrophy, not elsewhere classified, right lower leg; Z86.718 Personal history of other venous thrombosis and embolism; Z86.73 Personal history of transient ischemic attack (TIA), and cerebral infarction without residual deficits
CPT/HCPCS: 97597

== ENCOUNTER → 2019-04-23 | Outpatient (CLI) | payer OTHER ==
[~2019-04-23] MED LIST changes: +LIDOCAINE 2% 5 ML JELLY TP ONE; -MET500 PO; +METH500T7 PO
[2019-04-23 11:25] VITALS: BP 100/65
== END | disposition home or self-care (01) ==
LOC: HBOWC 09:27
PROVIDERS: ATTEND Podiatrist
DX: L89.612 Pressure ulcer of right heel, stage 2 (principal); L97.521 Non-pressure chronic ulcer of other part of left foot limited to breakdown of skin; I89.0 Lymphedema, not elsewhere classified; I87.2 Venous insufficiency (chronic) (peripheral); L84 Corns and callosities; M24.575 Contracture, left foot; M24.574 Contracture, right foot; M24.571 Contracture, right ankle; M24.572 Contracture, left ankle; M62.561 Muscle wasting and atrophy, not elsewhere classified, right lower leg; Z86.718 Personal history of other venous thrombosis and embolism; Z86.73 Personal history of transient ischemic attack (TIA), and cerebral infarction without residual deficits
CPT/HCPCS: 11042

== ENCOUNTER → 2019-05-06 | Outpatient (CLI) | payer OTHER ==
[~2019-05-06] MED LIST changes: -LIDOCAINE 2% 5 ML JELLY TP ONE
[2019-05-06 09:50] VITALS: BP 144/78
== END | disposition home or self-care (01) ==
LOC: HBOWC 08:44
PROVIDERS: ATTEND Nurse Practitioner Adult Health
DX: L89.612 Pressure ulcer of right heel, stage 2 (principal); L97.521 Non-pressure chronic ulcer of other part of left foot limited to breakdown of skin; I89.0 Lymphedema, not elsewhere classified; I87.2 Venous insufficiency (chronic) (peripheral); L84 Corns and callosities; M24.575 Contracture, left foot; M24.574 Contracture, right foot; M24.571 Contracture, right ankle; M24.572 Contracture, left ankle; M62.561 Muscle wasting and atrophy, not elsewhere classified, right lower leg; Z86.718 Personal history of other venous thrombosis and embolism; Z86.73 Personal history of transient ischemic attack (TIA), and cerebral infarction without residual deficits
CPT/HCPCS: 97597

== ENCOUNTER → 2019-05-20 | Outpatient (CLI) | payer OTHER ==
[2019-05-20 10:04] VITALS: BP 123/59
== END | disposition home or self-care (01) ==
LOC: HBOWC 09:23
PROVIDERS: ATTEND Nurse Practitioner Adult Health
DX: L89.612 Pressure ulcer of right heel, stage 2 (principal); I89.0 Lymphedema, not elsewhere classified; I87.2 Venous insufficiency (chronic) (peripheral); L84 Corns and callosities; G82.20 Paraplegia, unspecified; M62.472 Contracture of muscle, left ankle and foot; M62.471 Contracture of muscle, right ankle and foot; Z86.718 Personal history of other venous thrombosis and embolism; Z86.73 Personal history of transient ischemic attack (TIA), and cerebral infarction without residual deficits
CPT/HCPCS: 97597

== ENCOUNTER → 2019-06-03 | Outpatient (CLI) | payer OTHER ==
[~2019-06-03] MED LIST changes: +LIDOCAINE 2% 5 ML JELLY TP ONE
[2019-06-03 09:39] VITALS: BP 142/72
== END | disposition home or self-care (01) ==
LOC: HBOWC 09:20
PROVIDERS: ATTEND Nurse Practitioner Adult Health
DX: L89.612 Pressure ulcer of right heel, stage 2 (principal); I89.0 Lymphedema, not elsewhere classified; I87.2 Venous insufficiency (chronic) (peripheral); L84 Corns and callosities; M62.472 Contracture of muscle, left ankle and foot; M62.471 Contracture of muscle, right ankle and foot; L60.2 Onychogryphosis; G82.20 Paraplegia, unspecified; Z86.718 Personal history of other venous thrombosis and embolism; Z86.73 Personal history of transient ischemic attack (TIA), and cerebral infarction without residual deficits
CPT/HCPCS: 97597

== ENCOUNTER → 2019-06-10 | Outpatient (CLI) | payer OTHER ==
[~2019-06-10] MED LIST changes: -LIDOCAINE 2% 5 ML JELLY TP ONE
[2019-06-10 10:57] VITALS: BP 100/74
== END | disposition home or self-care (01) ==
LOC: HBOWC 08:54
PROVIDERS: ATTEND Nurse Practitioner Adult Health
DX: L89.612 Pressure ulcer of right heel, stage 2 (principal); I89.0 Lymphedema, not elsewhere classified; I87.2 Venous insufficiency (chronic) (peripheral); L84 Corns and callosities; M24.575 Contracture, left foot; M24.571 Contracture, right ankle; M24.572 Contracture, left ankle; M24.574 Contracture, right foot; G82.20 Paraplegia, unspecified; M62.562 Muscle wasting and atrophy, not elsewhere classified, left lower leg; M62.561 Muscle wasting and atrophy, not elsewhere classified, right lower leg; Z86.718 Personal history of other venous thrombosis and embolism; Z86.73 Personal history of transient ischemic attack (TIA), and cerebral infarction without residual deficits
CPT/HCPCS: 97597

== ENCOUNTER → 2019-06-17 | Outpatient (CLI) | payer OTHER ==
[~2019-06-17] MED LIST changes: +LIDOCAINE 2% 5 ML JELLY ONE
[2019-06-17 10:04] VITALS: BP 138/72
== END | disposition home or self-care (01) ==
LOC: HBOWC 09:02
PROVIDERS: ATTEND Nurse Practitioner Adult Health
DX: L89.612 Pressure ulcer of right heel, stage 2 (principal); I89.0 Lymphedema, not elsewhere classified; I87.2 Venous insufficiency (chronic) (peripheral); L84 Corns and callosities; M24.575 Contracture, left foot; M24.571 Contracture, right ankle; M24.572 Contracture, left ankle; G82.20 Paraplegia, unspecified; M62.562 Muscle wasting and atrophy, not elsewhere classified, left lower leg; M62.561 Muscle wasting and atrophy, not elsewhere classified, right lower leg; Z86.718 Personal history of other venous thrombosis and embolism; Z86.73 Personal history of transient ischemic attack (TIA), and cerebral infarction without residual deficits
CPT/HCPCS: 11042

== ENCOUNTER → 2019-06-24 | Outpatient (CLI) | payer OTHER ==
[~2019-06-24] MED LIST changes: -LIDOCAINE 2% 5 ML JELLY ONE
[2019-06-24 10:04] VITALS: BP 100/65
== END | disposition home or self-care (01) ==
LOC: HBOWC 09:22
PROVIDERS: ATTEND Nurse Practitioner Adult Health
DX: L89.612 Pressure ulcer of right heel, stage 2 (principal); I89.0 Lymphedema, not elsewhere classified; I87.2 Venous insufficiency (chronic) (peripheral); L84 Corns and callosities; M24.575 Contracture, left foot; M24.571 Contracture, right ankle; M24.572 Contracture, left ankle; G82.20 Paraplegia, unspecified; M62.562 Muscle wasting and atrophy, not elsewhere classified, left lower leg; M62.561 Muscle wasting and atrophy, not elsewhere classified, right lower leg; Z86.718 Personal history of other venous thrombosis and embolism; Z86.73 Personal history of transient ischemic attack (TIA), and cerebral infarction without residual deficits
CPT/HCPCS: 97597

== ENCOUNTER → 2019-07-01 | Outpatient (CLI) | payer OTHER ==
[2019-07-01 09:42] VITALS: BP 125/72
== END | disposition home or self-care (01) ==
LOC: HBOWC 09:07
PROVIDERS: ATTEND Nurse Practitioner Adult Health
DX: L89.612 Pressure ulcer of right heel, stage 2 (principal); I89.0 Lymphedema, not elsewhere classified; I87.2 Venous insufficiency (chronic) (peripheral); L84 Corns and callosities; M24.574 Contracture, right foot; M24.575 Contracture, left foot; M24.571 Contracture, right ankle; M24.572 Contracture, left ankle; G82.20 Paraplegia, unspecified; Z86.718 Personal history of other venous thrombosis and embolism; Z86.73 Personal history of transient ischemic attack (TIA), and cerebral infarction without residual deficits; B35.1 Tinea unguium

== ENCOUNTER → 2019-07-08 | Outpatient (CLI) | payer OTHER ==
[~2019-07-08] MED LIST changes: +LIDOCAINE 2% 5 ML JELLY TP ONE
[2019-07-08 10:00] VITALS: BP 141/70
== END | disposition home or self-care (01) ==
LOC: HBOWC 09:13
PROVIDERS: ATTEND Nurse Practitioner Adult Health
DX: L89.612 Pressure ulcer of right heel, stage 2 (principal); I89.0 Lymphedema, not elsewhere classified; I87.2 Venous insufficiency (chronic) (peripheral); L84 Corns and callosities; M24.574 Contracture, right foot; M24.575 Contracture, left foot; M24.571 Contracture, right ankle; M24.572 Contracture, left ankle; G82.20 Paraplegia, unspecified; Z86.718 Personal history of other venous thrombosis and embolism; Z86.73 Personal history of transient ischemic attack (TIA), and cerebral infarction without residual deficits; B35.1 Tinea unguium

== ENCOUNTER → 2019-07-22 | Outpatient (CLI) | payer OTHER ==
[~2019-07-22] MED LIST changes: -LIDOCAINE 2% 5 ML JELLY TP ONE
[2019-07-22 10:48] VITALS: BP 115/70
== END | disposition home or self-care (01) ==
LOC: HBOWC 09:47
PROVIDERS: ATTEND Nurse Practitioner Adult Health
DX: L89.612 Pressure ulcer of right heel, stage 2 (principal); I89.0 Lymphedema, not elsewhere classified; I87.2 Venous insufficiency (chronic) (peripheral); L84 Corns and callosities; B35.1 Tinea unguium; M24.574 Contracture, right foot; M24.575 Contracture, left foot; M24.571 Contracture, right ankle; M24.572 Contracture, left ankle; G82.20 Paraplegia, unspecified; Z86.718 Personal history of other venous thrombosis and embolism; Z86.73 Personal history of transient ischemic attack (TIA), and cerebral infarction without residual deficits

== ENCOUNTER → 2019-08-12 | Outpatient (CLI) | payer OTHER ==
[2019-08-12 12:21] VITALS: BP 127/66
== END | disposition home or self-care (01) ==
LOC: HBOWC 08:49
PROVIDERS: ATTEND Nurse Practitioner Adult Health
DX: L89.612 Pressure ulcer of right heel, stage 2 (principal); I89.0 Lymphedema, not elsewhere classified; I87.2 Venous insufficiency (chronic) (peripheral); L84 Corns and callosities; B35.1 Tinea unguium; M24.574 Contracture, right foot; M24.575 Contracture, left foot; M24.571 Contracture, right ankle; M24.572 Contracture, left ankle; G82.20 Paraplegia, unspecified; Z86.718 Personal history of other venous thrombosis and embolism; Z86.73 Personal history of transient ischemic attack (TIA), and cerebral infarction without residual deficits

== ENCOUNTER → 2019-08-26 | Outpatient (CLI) | payer OTHER | END | disposition home or self-care (01) | LOC: HBOWC 09:35 | PROVIDERS: ATTEND Nurse Practitioner Adult Health | DX: L89.612 Pressure ulcer of right heel, stage 2 (principal); I89.0 Lymphedema, not elsewhere classified; I87.2 Venous insufficiency (chronic) (peripheral); L84 Corns and callosities; B35.1 Tinea unguium; M24.574 Contracture, right foot; M24.575 Contracture, left foot; M24.571 Contracture, right ankle; M24.572 Contracture, left ankle; G82.20 Paraplegia, unspecified; Z86.718 Personal history of other venous thrombosis and embolism; Z86.73 Personal history of transient ischemic attack (TIA), and cerebral infarction without residual deficits ==

== ENCOUNTER → 2019-09-09 | Outpatient (CLI) | payer OTHER | END | disposition home or self-care (01) | LOC: HBOWC 09:35 | PROVIDERS: ATTEND Nurse Practitioner Adult Health | DX: L89.612 Pressure ulcer of right heel, stage 2 (principal); I89.0 Lymphedema, not elsewhere classified; I87.2 Venous insufficiency (chronic) (peripheral); L84 Corns and callosities; B35.1 Tinea unguium; M24.574 Contracture, right foot; M24.575 Contracture, left foot; M24.571 Contracture, right ankle; M24.572 Contracture, left ankle; G82.20 Paraplegia, unspecified; Z86.718 Personal history of other venous thrombosis and embolism; Z86.73 Personal history of transient ischemic attack (TIA), and cerebral infarction without residual deficits ==

== ENCOUNTER → 2019-09-16 | Outpatient (CLI) | payer OTHER | END | disposition home or self-care (01) | LOC: HBOWC 08:42 | PROVIDERS: ATTEND Nurse Practitioner Adult Health | DX: L89.612 Pressure ulcer of right heel, stage 2 (principal); I89.0 Lymphedema, not elsewhere classified; I87.2 Venous insufficiency (chronic) (peripheral); L84 Corns and callosities; B35.1 Tinea unguium; M24.574 Contracture, right foot; M24.575 Contracture, left foot; M24.571 Contracture, right ankle; M24.572 Contracture, left ankle; G82.20 Paraplegia, unspecified; Z86.718 Personal history of other venous thrombosis and embolism; Z86.73 Personal history of transient ischemic attack (TIA), and cerebral infarction without residual deficits ==

== ENCOUNTER → 2019-09-30 | Outpatient (CLI) | payer OTHER | END | disposition home or self-care (01) | LOC: HBOWC 09:03 | PROVIDERS: ATTEND Nurse Practitioner Adult Health | DX: L89.612 Pressure ulcer of right heel, stage 2 (principal); I89.0 Lymphedema, not elsewhere classified; I87.2 Venous insufficiency (chronic) (peripheral); L84 Corns and callosities; P11.5 Birth injury to spine and spinal cord; B35.1 Tinea unguium; I10 Essential (primary) hypertension; Q05.9 Spina bifida, unspecified; G82.20 Paraplegia, unspecified; R26.9 Unspecified abnormalities of gait and mobility; M24.574 Contracture, right foot; M24.575 Contracture, left foot; M24.571 Contracture, right ankle; M24.572 Contracture, left ankle; Z86.718 Personal history of other venous thrombosis and embolism; Z86.73 Personal history of transient ischemic attack (TIA), and cerebral infarction without residual deficits | CPT/HCPCS: 97597 ==

== ENCOUNTER → 2019-10-07 | Outpatient (CLI) | payer OTHER | END | disposition home or self-care (01) | LOC: HBOWC 09:09 | PROVIDERS: ATTEND Nurse Practitioner Adult Health | DX: L89.612 Pressure ulcer of right heel, stage 2 (principal); I89.0 Lymphedema, not elsewhere classified; I87.2 Venous insufficiency (chronic) (peripheral); L84 Corns and callosities; P11.5 Birth injury to spine and spinal cord; B35.1 Tinea unguium; I10 Essential (primary) hypertension; Q05.9 Spina bifida, unspecified; G82.20 Paraplegia, unspecified; R26.9 Unspecified abnormalities of gait and mobility; M24.574 Contracture, right foot; M24.575 Contracture, left foot; M24.571 Contracture, right ankle; M24.572 Contracture, left ankle; Z86.718 Personal history of other venous thrombosis and embolism; Z86.73 Personal history of transient ischemic attack (TIA), and cerebral infarction without residual deficits ==

== ENCOUNTER → 2019-10-14 | Outpatient (CLI) | payer OTHER | END | disposition home or self-care (01) | LOC: HBOWC 09:25 | PROVIDERS: ATTEND Nurse Practitioner Adult Health | DX: L89.612 Pressure ulcer of right heel, stage 2 (principal); I87.2 Venous insufficiency (chronic) (peripheral); I89.0 Lymphedema, not elsewhere classified; I10 Essential (primary) hypertension; L84 Corns and callosities; Z86.718 Personal history of other venous thrombosis and embolism; G82.20 Paraplegia, unspecified; Z86.73 Personal history of transient ischemic attack (TIA), and cerebral infarction without residual deficits ==

== ENCOUNTER → 2019-10-28 | Outpatient (CLI) | payer OTHER | END | disposition home or self-care (01) | LOC: HBOWC 09:22 | PROVIDERS: ATTEND Nurse Practitioner Adult Health | DX: L89.612 Pressure ulcer of right heel, stage 2 (principal); I87.2 Venous insufficiency (chronic) (peripheral); I89.0 Lymphedema, not elsewhere classified; I10 Essential (primary) hypertension; L84 Corns and callosities; G82.20 Paraplegia, unspecified; Q05.9 Spina bifida, unspecified; P11.5 Birth injury to spine and spinal cord; R26.9 Unspecified abnormalities of gait and mobility; M24.572 Contracture, left ankle; M24.571 Contracture, right ankle; M24.575 Contracture, left foot; Z86.718 Personal history of other venous thrombosis and embolism; M24.574 Contracture, right foot; Z86.73 Personal history of transient ischemic attack (TIA), and cerebral infarction without residual deficits ==

== ENCOUNTER → 2019-11-04 | Outpatient (CLI) | payer OTHER | END | disposition home or self-care (01) | LOC: HBOWC 09:11 | PROVIDERS: ATTEND Nurse Practitioner Adult Health | DX: L89.612 Pressure ulcer of right heel, stage 2 (principal); I87.2 Venous insufficiency (chronic) (peripheral); I89.0 Lymphedema, not elsewhere classified; I10 Essential (primary) hypertension; L84 Corns and callosities; G82.20 Paraplegia, unspecified; Q05.9 Spina bifida, unspecified; P11.5 Birth injury to spine and spinal cord; R26.9 Unspecified abnormalities of gait and mobility; M24.572 Contracture, left ankle; M24.571 Contracture, right ankle; M24.575 Contracture, left foot; M24.574 Contracture, right foot; Z86.718 Personal history of other venous thrombosis and embolism; Z86.73 Personal history of transient ischemic attack (TIA), and cerebral infarction without residual deficits ==

== ENCOUNTER → 2019-11-19 | Outpatient (CLI) | payer OTHER ==
[~2019-11-19] MED LIST changes: +LEVO-72 PO; -LEVO500 PO; +LIDOCAINE 2% 5 ML JELLY TP ONE
== END | disposition home or self-care (01) ==
LOC: HBOWC 09:12
PROVIDERS: ATTEND Podiatrist
DX: L89.612 Pressure ulcer of right heel, stage 2 (principal); I87.2 Venous insufficiency (chronic) (peripheral); I89.0 Lymphedema, not elsewhere classified; I11.0 Hypertensive heart disease with heart failure; I50.9 Heart failure, unspecified; L84 Corns and callosities; G82.20 Paraplegia, unspecified; Q05.9 Spina bifida, unspecified; P11.5 Birth injury to spine and spinal cord; R26.9 Unspecified abnormalities of gait and mobility; M24.572 Contracture, left ankle; M24.571 Contracture, right ankle; M24.575 Contracture, left foot; M24.574 Contracture, right foot; Z86.718 Personal history of other venous thrombosis and embolism; Z86.73 Personal history of transient ischemic attack (TIA), and cerebral infarction without residual deficits
CPT/HCPCS: 11042

== ENCOUNTER → 2019-11-26 | Outpatient (CLI) | payer OTHER ==
[~2019-11-26] MED LIST changes: -LIDOCAINE 2% 5 ML JELLY TP ONE
== END | disposition home or self-care (01) ==
LOC: HBOWC 09:08
PROVIDERS: ATTEND Podiatrist
DX: L89.612 Pressure ulcer of right heel, stage 2 (principal); I87.2 Venous insufficiency (chronic) (peripheral); I89.0 Lymphedema, not elsewhere classified; I11.0 Hypertensive heart disease with heart failure; I50.9 Heart failure, unspecified; L84 Corns and callosities; G82.20 Paraplegia, unspecified; Q05.9 Spina bifida, unspecified; P11.5 Birth injury to spine and spinal cord; R26.9 Unspecified abnormalities of gait and mobility; B35.1 Tinea unguium; M24.572 Contracture, left ankle; M24.571 Contracture, right ankle; M24.575 Contracture, left foot; M24.574 Contracture, right foot; Z86.718 Personal history of other venous thrombosis and embolism; Z86.73 Personal history of transient ischemic attack (TIA), and cerebral infarction without residual deficits
CPT/HCPCS: 11042

== ENCOUNTER → 2019-12-02 | Outpatient (CLI) | payer OTHER | END | disposition home or self-care (01) | LOC: HBOWC 09:07 | PROVIDERS: ATTEND Nurse Practitioner Adult Health | DX: L89.612 Pressure ulcer of right heel, stage 2 (principal); I87.2 Venous insufficiency (chronic) (peripheral); I89.0 Lymphedema, not elsewhere classified; I11.0 Hypertensive heart disease with heart failure; I50.9 Heart failure, unspecified; L84 Corns and callosities; G82.20 Paraplegia, unspecified; Q05.9 Spina bifida, unspecified; P11.5 Birth injury to spine and spinal cord; R26.9 Unspecified abnormalities of gait and mobility; B35.1 Tinea unguium; M24.572 Contracture, left ankle; M24.571 Contracture, right ankle; M24.575 Contracture, left foot; M24.574 Contracture, right foot; Z86.718 Personal history of other venous thrombosis and embolism; Z86.73 Personal history of transient ischemic attack (TIA), and cerebral infarction without residual deficits | CPT/HCPCS: 29581 ==

== ENCOUNTER → 2019-12-09 | Outpatient (CLI) | payer OTHER | END | disposition home or self-care (01) | LOC: HBOWC 09:03 | PROVIDERS: ATTEND Nurse Practitioner Adult Health | DX: L89.612 Pressure ulcer of right heel, stage 2 (principal); I87.2 Venous insufficiency (chronic) (peripheral); I89.0 Lymphedema, not elsewhere classified; I11.0 Hypertensive heart disease with heart failure; I50.9 Heart failure, unspecified; L84 Corns and callosities; G82.20 Paraplegia, unspecified; Q05.9 Spina bifida, unspecified; P11.5 Birth injury to spine and spinal cord; R26.9 Unspecified abnormalities of gait and mobility; B35.1 Tinea unguium; M24.572 Contracture, left ankle; M24.571 Contracture, right ankle; M24.575 Contracture, left foot; M24.574 Contracture, right foot; Z86.718 Personal history of other venous thrombosis and embolism; Z86.73 Personal history of transient ischemic attack (TIA), and cerebral infarction without residual deficits ==

== ENCOUNTER → 2019-12-16 | Outpatient (CLI) | payer OTHER | END | disposition home or self-care (01) | LOC: HBOWC 09:00 | PROVIDERS: ATTEND Nurse Practitioner Adult Health | DX: L89.612 Pressure ulcer of right heel, stage 2 (principal); I87.2 Venous insufficiency (chronic) (peripheral); I89.0 Lymphedema, not elsewhere classified; I11.0 Hypertensive heart disease with heart failure; I50.9 Heart failure, unspecified; L84 Corns and callosities; G82.20 Paraplegia, unspecified; Q05.9 Spina bifida, unspecified; P11.5 Birth injury to spine and spinal cord; R26.9 Unspecified abnormalities of gait and mobility; B35.1 Tinea unguium; M24.572 Contracture, left ankle; M24.571 Contracture, right ankle; M24.574 Contracture, right foot; M24.575 Contracture, left foot; Z86.718 Personal history of other venous thrombosis and embolism; Z86.73 Personal history of transient ischemic attack (TIA), and cerebral infarction without residual deficits ==

== ENCOUNTER → 2019-12-23 | Outpatient (CLI) | payer OTHER | END | disposition home or self-care (01) | LOC: HBOWC 09:38 | PROVIDERS: ATTEND Nurse Practitioner Adult Health | DX: L89.612 Pressure ulcer of right heel, stage 2 (principal); S91.311D Laceration without foreign body, right foot, subsequent encounter; I87.2 Venous insufficiency (chronic) (peripheral); I89.0 Lymphedema, not elsewhere classified; I11.0 Hypertensive heart disease with heart failure; I50.9 Heart failure, unspecified; L84 Corns and callosities; G82.20 Paraplegia, unspecified; Q05.9 Spina bifida, unspecified; R26.9 Unspecified abnormalities of gait and mobility; B35.1 Tinea unguium; M24.572 Contracture, left ankle; M24.571 Contracture, right ankle; M24.574 Contracture, right foot; M24.575 Contracture, left foot; Z86.718 Personal history of other venous thrombosis and embolism; Z86.73 Personal history of transient ischemic attack (TIA), and cerebral infarction without residual deficits; X58.XXXD Exposure to other specified factors, subsequent encounter ==

== ENCOUNTER → 2019-12-30 | Outpatient (CLI) | payer OTHER | END | disposition home or self-care (01) | LOC: HBOWC 09:04 | PROVIDERS: ATTEND Nurse Practitioner Adult Health | DX: L89.612 Pressure ulcer of right heel, stage 2 (principal); S91.311D Laceration without foreign body, right foot, subsequent encounter; I87.2 Venous insufficiency (chronic) (peripheral); I89.0 Lymphedema, not elsewhere classified; I11.0 Hypertensive heart disease with heart failure; I50.9 Heart failure, unspecified; L84 Corns and callosities; G82.20 Paraplegia, unspecified; Q05.9 Spina bifida, unspecified; R26.9 Unspecified abnormalities of gait and mobility; B35.1 Tinea unguium; M24.572 Contracture, left ankle; M24.571 Contracture, right ankle; M24.574 Contracture, right foot; M24.575 Contracture, left foot; Z86.718 Personal history of other venous thrombosis and embolism; Z86.73 Personal history of transient ischemic attack (TIA), and cerebral infarction without residual deficits; Z79.82 Long term (current) use of aspirin; X58.XXXD Exposure to other specified factors, subsequent encounter | CPT/HCPCS: 29581; G0463 ==

== ENCOUNTER → 2020-01-13 | Outpatient (CLI) | payer OTHER | END | disposition home or self-care (01) | LOC: HBOWC 09:10 | PROVIDERS: ATTEND Nurse Practitioner Adult Health | DX: L89.612 Pressure ulcer of right heel, stage 2 (principal); S91.311D Laceration without foreign body, right foot, subsequent encounter; I87.2 Venous insufficiency (chronic) (peripheral); I89.0 Lymphedema, not elsewhere classified; I11.0 Hypertensive heart disease with heart failure; I50.9 Heart failure, unspecified; L84 Corns and callosities; G82.20 Paraplegia, unspecified; Q05.9 Spina bifida, unspecified; R26.9 Unspecified abnormalities of gait and mobility; B35.1 Tinea unguium; M24.572 Contracture, left ankle; M24.571 Contracture, right ankle; M24.574 Contracture, right foot; M24.575 Contracture, left foot; Z86.718 Personal history of other venous thrombosis and embolism; Z86.73 Personal history of transient ischemic attack (TIA), and cerebral infarction without residual deficits; Z79.82 Long term (current) use of aspirin; X58.XXXD Exposure to other specified factors, subsequent encounter | CPT/HCPCS: 29581 ==

== ENCOUNTER → 2020-01-27 | Outpatient (CLI) | payer OTHER | END | disposition home or self-care (01) | LOC: HBOWC 09:11 | PROVIDERS: ATTEND Nurse Practitioner Adult Health | DX: L89.612 Pressure ulcer of right heel, stage 2 (principal); S91.311D Laceration without foreign body, right foot, subsequent encounter; I87.2 Venous insufficiency (chronic) (peripheral); I89.0 Lymphedema, not elsewhere classified; I11.0 Hypertensive heart disease with heart failure; I50.9 Heart failure, unspecified; L84 Corns and callosities; G82.20 Paraplegia, unspecified; Q05.9 Spina bifida, unspecified; R26.9 Unspecified abnormalities of gait and mobility; B35.1 Tinea unguium; M24.572 Contracture, left ankle; M24.571 Contracture, right ankle; M24.574 Contracture, right foot; M24.575 Contracture, left foot; Z86.718 Personal history of other venous thrombosis and embolism; Z86.73 Personal history of transient ischemic attack (TIA), and cerebral infarction without residual deficits; Z79.82 Long term (current) use of aspirin; X58.XXXD Exposure to other specified factors, subsequent encounter | CPT/HCPCS: 29581 ==

== ENCOUNTER → 2020-02-10 | Outpatient (CLI) | payer OTHER | END | disposition home or self-care (01) | LOC: HBOWC 09:40 | PROVIDERS: ATTEND Nurse Practitioner Adult Health | DX: L89.612 Pressure ulcer of right heel, stage 2 (principal); I87.2 Venous insufficiency (chronic) (peripheral); I89.0 Lymphedema, not elsewhere classified; I11.0 Hypertensive heart disease with heart failure; I50.9 Heart failure, unspecified; L84 Corns and callosities; G82.20 Paraplegia, unspecified; Q05.9 Spina bifida, unspecified; R26.9 Unspecified abnormalities of gait and mobility; B35.1 Tinea unguium; M24.572 Contracture, left ankle; M24.571 Contracture, right ankle; M24.574 Contracture, right foot; M24.575 Contracture, left foot; Z86.718 Personal history of other venous thrombosis and embolism; Z86.73 Personal history of transient ischemic attack (TIA), and cerebral infarction without residual deficits; Z79.82 Long term (current) use of aspirin | CPT/HCPCS: 29581 ==

== ENCOUNTER → 2020-03-02 | Outpatient (CLI) | payer OTHER ==
[~2020-03-02] MED LIST changes: +CETI-450 PO; -CETI10TA59 PO
== END | disposition home or self-care (01) ==
LOC: HBOWC 09:32
PROVIDERS: ATTEND Nurse Practitioner Adult Health
DX: L89.612 Pressure ulcer of right heel, stage 2 (principal); L89.892 Pressure ulcer of other site, stage 2; S90.822A Blister (nonthermal), left foot, initial encounter; S90.425A Blister (nonthermal), left lesser toe(s), initial encounter; S90.422A Blister (nonthermal), left great toe, initial encounter; I89.0 Lymphedema, not elsewhere classified; I87.2 Venous insufficiency (chronic) (peripheral); I11.0 Hypertensive heart disease with heart failure; I50.9 Heart failure, unspecified; L84 Corns and callosities; G82.20 Paraplegia, unspecified; Q05.9 Spina bifida, unspecified; R26.9 Unspecified abnormalities of gait and mobility; B35.1 Tinea unguium; M24.572 Contracture, left ankle; M24.571 Contracture, right ankle; M24.574 Contracture, right foot; M24.575 Contracture, left foot; Z86.718 Personal history of other venous thrombosis and embolism; Z86.73 Personal history of transient ischemic attack (TIA), and cerebral infarction without residual deficits; Z79.82 Long term (current) use of aspirin; X58.XXXA Exposure to other specified factors, initial encounter; Y93.89 Activity, other specified; Y92.89 Other specified places as the place of occurrence of the external cause; Y99.8 Other external cause status
CPT/HCPCS: 29581

== ENCOUNTER → 2020-03-16 | Outpatient (CLI) | payer OTHER | END | disposition home or self-care (01) | LOC: HBOWC 09:19 | PROVIDERS: ATTEND Nurse Practitioner Adult Health | DX: L89.612 Pressure ulcer of right heel, stage 2 (principal); L89.892 Pressure ulcer of other site, stage 2; S90.822D Blister (nonthermal), left foot, subsequent encounter; S90.425D Blister (nonthermal), left lesser toe(s), subsequent encounter; S90.422D Blister (nonthermal), left great toe, subsequent encounter; I89.0 Lymphedema, not elsewhere classified; I87.2 Venous insufficiency (chronic) (peripheral); I11.0 Hypertensive heart disease with heart failure; I50.9 Heart failure, unspecified; L84 Corns and callosities; G82.20 Paraplegia, unspecified; Q05.9 Spina bifida, unspecified; R26.9 Unspecified abnormalities of gait and mobility; B35.1 Tinea unguium; M24.572 Contracture, left ankle; M24.571 Contracture, right ankle; M24.574 Contracture, right foot; M24.575 Contracture, left foot; Z86.718 Personal history of other venous thrombosis and embolism; Z86.73 Personal history of transient ischemic attack (TIA), and cerebral infarction without residual deficits; Z79.82 Long term (current) use of aspirin; X58.XXXD Exposure to other specified factors, subsequent encounter ==

== ENCOUNTER → 2020-03-30 | Outpatient (CLI) | payer OTHER ==
[~2020-03-30] MED LIST changes: +ATEN-73; -ATEN25TA
== END | disposition home or self-care (01) ==
LOC: HBOWC 09:16
PROVIDERS: ATTEND Nurse Practitioner Adult Health
DX: L89.612 Pressure ulcer of right heel, stage 2 (principal); L89.892 Pressure ulcer of other site, stage 2; L89.622 Pressure ulcer of left heel, stage 2; S90.425D Blister (nonthermal), left lesser toe(s), subsequent encounter; S90.422D Blister (nonthermal), left great toe, subsequent encounter; I89.0 Lymphedema, not elsewhere classified; I87.2 Venous insufficiency (chronic) (peripheral); I11.0 Hypertensive heart disease with heart failure; I50.9 Heart failure, unspecified; L84 Corns and callosities; G82.20 Paraplegia, unspecified; Q05.9 Spina bifida, unspecified; R26.9 Unspecified abnormalities of gait and mobility; B35.1 Tinea unguium; M24.572 Contracture, left ankle; M24.571 Contracture, right ankle; M24.574 Contracture, right foot; M24.575 Contracture, left foot; Z86.718 Personal history of other venous thrombosis and embolism; Z86.73 Personal history of transient ischemic attack (TIA), and cerebral infarction without residual deficits; Z79.82 Long term (current) use of aspirin; X58.XXXD Exposure to other specified factors, subsequent encounter

== ENCOUNTER → 2020-04-13 | Outpatient (CLI) | payer OTHER | END | disposition home or self-care (01) | LOC: HBOWC 09:19 | PROVIDERS: ATTEND Nurse Practitioner Adult Health | DX: L89.612 Pressure ulcer of right heel, stage 2 (principal); L89.892 Pressure ulcer of other site, stage 2; L89.622 Pressure ulcer of left heel, stage 2; S90.422D Blister (nonthermal), left great toe, subsequent encounter; I89.0 Lymphedema, not elsewhere classified; I87.2 Venous insufficiency (chronic) (peripheral); I11.0 Hypertensive heart disease with heart failure; I50.9 Heart failure, unspecified; L84 Corns and callosities; G82.20 Paraplegia, unspecified; Q05.9 Spina bifida, unspecified; R26.9 Unspecified abnormalities of gait and mobility; B35.1 Tinea unguium; M24.572 Contracture, left ankle; M24.571 Contracture, right ankle; M24.574 Contracture, right foot; M24.575 Contracture, left foot; Z86.718 Personal history of other venous thrombosis and embolism; Z86.73 Personal history of transient ischemic attack (TIA), and cerebral infarction without residual deficits; Z79.82 Long term (current) use of aspirin; X58.XXXD Exposure to other specified factors, subsequent encounter ==

== ENCOUNTER → 2020-04-27 | Outpatient (CLI) | payer OTHER | END | disposition home or self-care (01) | LOC: HBOWC 09:44 | PROVIDERS: ATTEND Nurse Practitioner Adult Health | DX: L89.612 Pressure ulcer of right heel, stage 2 (principal); L89.892 Pressure ulcer of other site, stage 2; L89.622 Pressure ulcer of left heel, stage 2; I89.0 Lymphedema, not elsewhere classified; I87.2 Venous insufficiency (chronic) (peripheral); I11.0 Hypertensive heart disease with heart failure; I50.9 Heart failure, unspecified; L84 Corns and callosities; G82.20 Paraplegia, unspecified; Q05.9 Spina bifida, unspecified; R26.9 Unspecified abnormalities of gait and mobility; B35.1 Tinea unguium; M24.572 Contracture, left ankle; M24.571 Contracture, right ankle; M24.574 Contracture, right foot; M24.575 Contracture, left foot; Z86.718 Personal history of other venous thrombosis and embolism; Z86.73 Personal history of transient ischemic attack (TIA), and cerebral infarction without residual deficits; Z79.82 Long term (current) use of aspirin | CPT/HCPCS: 97597 ==

== ENCOUNTER → 2020-05-18 | Outpatient (CLI) | payer OTHER | END | disposition home or self-care (01) | LOC: HBOWC 09:51 | PROVIDERS: ATTEND Nurse Practitioner Adult Health | DX: L89.612 Pressure ulcer of right heel, stage 2 (principal); L89.892 Pressure ulcer of other site, stage 2; L89.622 Pressure ulcer of left heel, stage 2; I89.0 Lymphedema, not elsewhere classified; I87.2 Venous insufficiency (chronic) (peripheral); I11.0 Hypertensive heart disease with heart failure; I50.9 Heart failure, unspecified; L84 Corns and callosities; G82.20 Paraplegia, unspecified; Q05.9 Spina bifida, unspecified; R26.9 Unspecified abnormalities of gait and mobility; B35.1 Tinea unguium; M24.572 Contracture, left ankle; M24.571 Contracture, right ankle; M24.574 Contracture, right foot; M24.575 Contracture, left foot; Z86.718 Personal history of other venous thrombosis and embolism; Z86.73 Personal history of transient ischemic attack (TIA), and cerebral infarction without residual deficits; Z79.82 Long term (current) use of aspirin | CPT/HCPCS: G0463; Z7500 ==

== ENCOUNTER → 2020-06-01 | Outpatient (CLI) | payer OTHER | END | disposition home or self-care (01) | LOC: HBOWC 09:19 | PROVIDERS: ATTEND Nurse Practitioner Adult Health | DX: L89.612 Pressure ulcer of right heel, stage 2 (principal); L89.892 Pressure ulcer of other site, stage 2; L89.622 Pressure ulcer of left heel, stage 2; I89.0 Lymphedema, not elsewhere classified; I87.2 Venous insufficiency (chronic) (peripheral); I11.0 Hypertensive heart disease with heart failure; I50.9 Heart failure, unspecified; L84 Corns and callosities; G82.20 Paraplegia, unspecified; Q05.9 Spina bifida, unspecified; R26.9 Unspecified abnormalities of gait and mobility; B35.1 Tinea unguium; M24.572 Contracture, left ankle; M24.571 Contracture, right ankle; M24.574 Contracture, right foot; M24.575 Contracture, left foot; Z86.718 Personal history of other venous thrombosis and embolism; Z86.73 Personal history of transient ischemic attack (TIA), and cerebral infarction without residual deficits; Z79.82 Long term (current) use of aspirin | CPT/HCPCS: G0463; Z7500 ==

== ENCOUNTER → 2020-06-15 | Outpatient (CLI) | payer OTHER | END | disposition home or self-care (01) | LOC: HBOWC 09:31 | PROVIDERS: ATTEND Nurse Practitioner Adult Health | DX: L89.612 Pressure ulcer of right heel, stage 2 (principal); L89.622 Pressure ulcer of left heel, stage 2; I89.0 Lymphedema, not elsewhere classified; I87.2 Venous insufficiency (chronic) (peripheral); I11.0 Hypertensive heart disease with heart failure; I50.9 Heart failure, unspecified; L84 Corns and callosities; G82.20 Paraplegia, unspecified; Q05.9 Spina bifida, unspecified; R26.9 Unspecified abnormalities of gait and mobility; B35.1 Tinea unguium; M24.572 Contracture, left ankle; M24.571 Contracture, right ankle; M24.574 Contracture, right foot; M24.575 Contracture, left foot; Z86.718 Personal history of other venous thrombosis and embolism; Z86.73 Personal history of transient ischemic attack (TIA), and cerebral infarction without residual deficits; Z79.82 Long term (current) use of aspirin | CPT/HCPCS: G0463; Z7500 ==

== ENCOUNTER → 2020-07-06 | Outpatient (CLI) | payer OTHER | END | disposition home or self-care (01) | LOC: HBOWC 09:26 | PROVIDERS: ATTEND Nurse Practitioner Adult Health | DX: L89.612 Pressure ulcer of right heel, stage 2 (principal); L89.622 Pressure ulcer of left heel, stage 2; I89.0 Lymphedema, not elsewhere classified; I87.2 Venous insufficiency (chronic) (peripheral); I11.0 Hypertensive heart disease with heart failure; I50.9 Heart failure, unspecified; L84 Corns and callosities; G82.20 Paraplegia, unspecified; Q05.9 Spina bifida, unspecified; R26.9 Unspecified abnormalities of gait and mobility; B35.1 Tinea unguium; M24.572 Contracture, left ankle; M24.571 Contracture, right ankle; M24.574 Contracture, right foot; M24.575 Contracture, left foot; Z86.718 Personal history of other venous thrombosis and embolism; Z86.73 Personal history of transient ischemic attack (TIA), and cerebral infarction without residual deficits; Z79.82 Long term (current) use of aspirin | CPT/HCPCS: 29581 ==

== ENCOUNTER → 2020-07-20 | Outpatient (CLI) | payer OTHER | END | disposition home or self-care (01) | LOC: HBOWC 09:25 | PROVIDERS: ATTEND Nurse Practitioner Adult Health | DX: L89.612 Pressure ulcer of right heel, stage 2 (principal); L89.622 Pressure ulcer of left heel, stage 2; I89.0 Lymphedema, not elsewhere classified; I87.2 Venous insufficiency (chronic) (peripheral); I11.0 Hypertensive heart disease with heart failure; I50.9 Heart failure, unspecified; L84 Corns and callosities; G82.20 Paraplegia, unspecified; Q05.9 Spina bifida, unspecified; R26.9 Unspecified abnormalities of gait and mobility; B35.1 Tinea unguium; M24.572 Contracture, left ankle; M24.571 Contracture, right ankle; M24.574 Contracture, right foot; M24.575 Contracture, left foot; Z86.718 Personal history of other venous thrombosis and embolism; Z86.73 Personal history of transient ischemic attack (TIA), and cerebral infarction without residual deficits; Z79.82 Long term (current) use of aspirin | CPT/HCPCS: 97597 ==

== ENCOUNTER → 2020-07-27 | Outpatient (CLI) | payer OTHER | END | disposition home or self-care (01) | LOC: HBOWC 09:38 | PROVIDERS: ATTEND Nurse Practitioner Adult Health | DX: L89.612 Pressure ulcer of right heel, stage 2 (principal); L89.622 Pressure ulcer of left heel, stage 2; I89.0 Lymphedema, not elsewhere classified; I87.2 Venous insufficiency (chronic) (peripheral); I11.0 Hypertensive heart disease with heart failure; I50.9 Heart failure, unspecified; L84 Corns and callosities; G82.20 Paraplegia, unspecified; Q05.9 Spina bifida, unspecified; R26.9 Unspecified abnormalities of gait and mobility; B35.1 Tinea unguium; M24.572 Contracture, left ankle; M24.571 Contracture, right ankle; M24.574 Contracture, right foot; M24.575 Contracture, left foot; Z86.718 Personal history of other venous thrombosis and embolism; Z86.73 Personal history of transient ischemic attack (TIA), and cerebral infarction without residual deficits; Z79.82 Long term (current) use of aspirin | CPT/HCPCS: C5275; Q4124 ==

== ENCOUNTER → 2020-08-03 | Outpatient (CLI) | payer OTHER | END | disposition home or self-care (01) | LOC: HBOWC 09:30 | PROVIDERS: ATTEND Nurse Practitioner Adult Health | DX: L89.612 Pressure ulcer of right heel, stage 2 (principal); L89.622 Pressure ulcer of left heel, stage 2; I89.0 Lymphedema, not elsewhere classified; I87.2 Venous insufficiency (chronic) (peripheral); I11.0 Hypertensive heart disease with heart failure; I50.9 Heart failure, unspecified; L84 Corns and callosities; G82.20 Paraplegia, unspecified; Q05.9 Spina bifida, unspecified; R26.9 Unspecified abnormalities of gait and mobility; B35.1 Tinea unguium; M24.572 Contracture, left ankle; M24.571 Contracture, right ankle; M24.574 Contracture, right foot; M24.575 Contracture, left foot; Z86.718 Personal history of other venous thrombosis and embolism; Z86.73 Personal history of transient ischemic attack (TIA), and cerebral infarction without residual deficits; Z79.82 Long term (current) use of aspirin | CPT/HCPCS: 97597 ==

== ENCOUNTER → 2020-08-10 | Outpatient (CLI) | payer OTHER | END | disposition home or self-care (01) | LOC: HBOWC 09:30 | PROVIDERS: ATTEND Nurse Practitioner Adult Health | DX: L89.612 Pressure ulcer of right heel, stage 2 (principal); L89.622 Pressure ulcer of left heel, stage 2; I89.0 Lymphedema, not elsewhere classified; I87.2 Venous insufficiency (chronic) (peripheral); I11.0 Hypertensive heart disease with heart failure; I50.9 Heart failure, unspecified; L84 Corns and callosities; G82.20 Paraplegia, unspecified; Q05.9 Spina bifida, unspecified; R26.9 Unspecified abnormalities of gait and mobility; B35.1 Tinea unguium; M24.572 Contracture, left ankle; M24.571 Contracture, right ankle; M24.574 Contracture, right foot; M24.575 Contracture, left foot; Z86.718 Personal history of other venous thrombosis and embolism; Z86.73 Personal history of transient ischemic attack (TIA), and cerebral infarction without residual deficits; Z79.82 Long term (current) use of aspirin | CPT/HCPCS: 29581 ==

== ENCOUNTER → 2020-08-17 | Outpatient (CLI) | payer OTHER | END | disposition home or self-care (01) | LOC: HBOWC 09:27 | PROVIDERS: ATTEND Nurse Practitioner Adult Health | DX: L89.612 Pressure ulcer of right heel, stage 2 (principal); L89.622 Pressure ulcer of left heel, stage 2; I89.0 Lymphedema, not elsewhere classified; I87.2 Venous insufficiency (chronic) (peripheral); I11.0 Hypertensive heart disease with heart failure; I50.9 Heart failure, unspecified; L84 Corns and callosities; G82.20 Paraplegia, unspecified; Q05.9 Spina bifida, unspecified; R26.9 Unspecified abnormalities of gait and mobility; B35.1 Tinea unguium; M24.572 Contracture, left ankle; M24.571 Contracture, right ankle; M24.574 Contracture, right foot; M24.575 Contracture, left foot; Z86.718 Personal history of other venous thrombosis and embolism; Z86.73 Personal history of transient ischemic attack (TIA), and cerebral infarction without residual deficits; Z79.82 Long term (current) use of aspirin ==

== ENCOUNTER → 2020-08-24 | Outpatient (CLI) | payer OTHER | END | disposition home or self-care (01) | LOC: HBOWC 10:45 | PROVIDERS: ATTEND Nurse Practitioner Adult Health | DX: L89.612 Pressure ulcer of right heel, stage 2 (principal); L89.622 Pressure ulcer of left heel, stage 2; I89.0 Lymphedema, not elsewhere classified; I87.2 Venous insufficiency (chronic) (peripheral); I11.0 Hypertensive heart disease with heart failure; I50.9 Heart failure, unspecified; L84 Corns and callosities; G82.20 Paraplegia, unspecified; Q05.9 Spina bifida, unspecified; R26.9 Unspecified abnormalities of gait and mobility; B35.1 Tinea unguium; M24.572 Contracture, left ankle; M24.571 Contracture, right ankle; M24.574 Contracture, right foot; M24.575 Contracture, left foot; Z86.718 Personal history of other venous thrombosis and embolism; Z86.73 Personal history of transient ischemic attack (TIA), and cerebral infarction without residual deficits; Z79.82 Long term (current) use of aspirin | CPT/HCPCS: 97597 ==

== ENCOUNTER → 2020-09-07 | Outpatient (CLI) | payer OTHER | END | disposition home or self-care (01) | LOC: HBOWC 09:19 | PROVIDERS: ATTEND Nurse Practitioner Adult Health | DX: L89.612 Pressure ulcer of right heel, stage 2 (principal); L89.622 Pressure ulcer of left heel, stage 2; I89.0 Lymphedema, not elsewhere classified; I87.2 Venous insufficiency (chronic) (peripheral); I11.0 Hypertensive heart disease with heart failure; I50.9 Heart failure, unspecified; L84 Corns and callosities; G82.20 Paraplegia, unspecified; Q05.9 Spina bifida, unspecified; R26.9 Unspecified abnormalities of gait and mobility; B35.1 Tinea unguium; M24.572 Contracture, left ankle; M24.571 Contracture, right ankle; M24.574 Contracture, right foot; M24.575 Contracture, left foot; Z86.718 Personal history of other venous thrombosis and embolism; Z86.73 Personal history of transient ischemic attack (TIA), and cerebral infarction without residual deficits; Z79.82 Long term (current) use of aspirin | CPT/HCPCS: 29581; 97597 ==

== ENCOUNTER → 2020-09-14 | Outpatient (CLI) | payer OTHER | END | disposition home or self-care (01) | LOC: HBOWC 09:21 | PROVIDERS: ATTEND Nurse Practitioner Adult Health | DX: L89.612 Pressure ulcer of right heel, stage 2 (principal); L89.622 Pressure ulcer of left heel, stage 2; I89.0 Lymphedema, not elsewhere classified; I87.2 Venous insufficiency (chronic) (peripheral); I11.0 Hypertensive heart disease with heart failure; I50.9 Heart failure, unspecified; L84 Corns and callosities; G82.20 Paraplegia, unspecified; Q05.9 Spina bifida, unspecified; R26.9 Unspecified abnormalities of gait and mobility; B35.1 Tinea unguium; M24.572 Contracture, left ankle; M24.571 Contracture, right ankle; M24.574 Contracture, right foot; M24.575 Contracture, left foot; Z86.718 Personal history of other venous thrombosis and embolism; Z86.73 Personal history of transient ischemic attack (TIA), and cerebral infarction without residual deficits; Z79.82 Long term (current) use of aspirin | CPT/HCPCS: 29581 ==

== ENCOUNTER → 2020-09-28 | Outpatient (CLI) | payer OTHER | END | disposition home or self-care (01) | LOC: HBOWC 09:19 | PROVIDERS: ATTEND Nurse Practitioner Adult Health | DX: L89.612 Pressure ulcer of right heel, stage 2 (principal); L89.622 Pressure ulcer of left heel, stage 2; I89.0 Lymphedema, not elsewhere classified; I87.2 Venous insufficiency (chronic) (peripheral); I11.0 Hypertensive heart disease with heart failure; I50.9 Heart failure, unspecified; L84 Corns and callosities; G82.20 Paraplegia, unspecified; Q05.9 Spina bifida, unspecified; R26.9 Unspecified abnormalities of gait and mobility; B35.1 Tinea unguium; M24.572 Contracture, left ankle; M24.571 Contracture, right ankle; M24.574 Contracture, right foot; M24.575 Contracture, left foot; Z86.718 Personal history of other venous thrombosis and embolism; Z86.73 Personal history of transient ischemic attack (TIA), and cerebral infarction without residual deficits; Z79.82 Long term (current) use of aspirin | CPT/HCPCS: 29581 ==

== ENCOUNTER → 2020-10-05 | Outpatient (CLI) | payer OTHER | END | disposition home or self-care (01) | LOC: HBOWC 09:25 | PROVIDERS: ATTEND Nurse Practitioner Adult Health | DX: L89.612 Pressure ulcer of right heel, stage 2 (principal); L89.622 Pressure ulcer of left heel, stage 2; I87.2 Venous insufficiency (chronic) (peripheral); I89.0 Lymphedema, not elsewhere classified; P11.5 Birth injury to spine and spinal cord; Q05.9 Spina bifida, unspecified; G82.20 Paraplegia, unspecified; L84 Corns and callosities; I11.0 Hypertensive heart disease with heart failure; I50.9 Heart failure, unspecified; Z86.718 Personal history of other venous thrombosis and embolism; Z86.73 Personal history of transient ischemic attack (TIA), and cerebral infarction without residual deficits | CPT/HCPCS: 97597 ==

== ENCOUNTER → 2020-10-12 | Outpatient (CLI) | payer OTHER | END | disposition home or self-care (01) | LOC: HBOWC 09:31 | PROVIDERS: ATTEND Nurse Practitioner Adult Health | DX: L89.612 Pressure ulcer of right heel, stage 2 (principal); L89.622 Pressure ulcer of left heel, stage 2; I87.2 Venous insufficiency (chronic) (peripheral); I89.0 Lymphedema, not elsewhere classified; P11.5 Birth injury to spine and spinal cord; Q05.9 Spina bifida, unspecified; G82.20 Paraplegia, unspecified; L84 Corns and callosities; I11.0 Hypertensive heart disease with heart failure; I50.9 Heart failure, unspecified; R26.9 Unspecified abnormalities of gait and mobility; B35.1 Tinea unguium; M24.572 Contracture, left ankle; M24.571 Contracture, right ankle; M24.574 Contracture, right foot; M24.575 Contracture, left foot; Z86.73 Personal history of transient ischemic attack (TIA), and cerebral infarction without residual deficits; Z86.718 Personal history of other venous thrombosis and embolism | CPT/HCPCS: C5275; Q4124 ==

== ENCOUNTER → 2020-10-18 | Outpatient (CLI) | payer OTHER | END | disposition home or self-care (01) | LOC: HBOWC 07:52 | PROVIDERS: ATTEND Nurse Practitioner Adult Health | DX: L89.612 Pressure ulcer of right heel, stage 2 (principal); L89.622 Pressure ulcer of left heel, stage 2; I87.2 Venous insufficiency (chronic) (peripheral); I89.0 Lymphedema, not elsewhere classified; P11.5 Birth injury to spine and spinal cord; Q05.9 Spina bifida, unspecified; G82.20 Paraplegia, unspecified; L84 Corns and callosities; I11.0 Hypertensive heart disease with heart failure; I50.9 Heart failure, unspecified; B35.1 Tinea unguium; R26.9 Unspecified abnormalities of gait and mobility; M24.572 Contracture, left ankle; M24.571 Contracture, right ankle; M24.575 Contracture, left foot; M24.574 Contracture, right foot; Z86.718 Personal history of other venous thrombosis and embolism; Z86.73 Personal history of transient ischemic attack (TIA), and cerebral infarction without residual deficits; Z79.82 Long term (current) use of aspirin | CPT/HCPCS: 97597 ==

== ENCOUNTER → 2020-11-02 | Outpatient (CLI) | payer OTHER | END | disposition home or self-care (01) | LOC: HBOWC 09:15 | PROVIDERS: ATTEND Nurse Practitioner Adult Health | DX: L89.612 Pressure ulcer of right heel, stage 2 (principal); L89.622 Pressure ulcer of left heel, stage 2; I87.2 Venous insufficiency (chronic) (peripheral); I89.0 Lymphedema, not elsewhere classified; P11.5 Birth injury to spine and spinal cord; Q05.9 Spina bifida, unspecified; G82.20 Paraplegia, unspecified; L84 Corns and callosities; I11.0 Hypertensive heart disease with heart failure; I50.9 Heart failure, unspecified; B35.1 Tinea unguium; R26.9 Unspecified abnormalities of gait and mobility; M24.572 Contracture, left ankle; M24.571 Contracture, right ankle; M24.575 Contracture, left foot; M24.574 Contracture, right foot; Z86.718 Personal history of other venous thrombosis and embolism; Z86.73 Personal history of transient ischemic attack (TIA), and cerebral infarction without residual deficits; Z79.82 Long term (current) use of aspirin | CPT/HCPCS: 97597 ==

== ENCOUNTER → 2020-11-09 | Outpatient (CLI) | payer OTHER | END | disposition home or self-care (01) | LOC: HBOWC 09:51 | PROVIDERS: ATTEND Nurse Practitioner Adult Health | DX: L89.612 Pressure ulcer of right heel, stage 2 (principal); L89.622 Pressure ulcer of left heel, stage 2; I87.2 Venous insufficiency (chronic) (peripheral); I89.0 Lymphedema, not elsewhere classified; P11.5 Birth injury to spine and spinal cord; Q05.9 Spina bifida, unspecified; G82.20 Paraplegia, unspecified; L84 Corns and callosities; I11.0 Hypertensive heart disease with heart failure; I50.9 Heart failure, unspecified; B35.1 Tinea unguium; R26.9 Unspecified abnormalities of gait and mobility; M24.572 Contracture, left ankle; M24.571 Contracture, right ankle; M24.575 Contracture, left foot; M24.574 Contracture, right foot; Z86.718 Personal history of other venous thrombosis and embolism; Z86.73 Personal history of transient ischemic attack (TIA), and cerebral infarction without residual deficits; Z79.82 Long term (current) use of aspirin | CPT/HCPCS: 97597 ==

== ENCOUNTER → 2020-11-16 | Outpatient (CLI) | payer OTHER | END | disposition home or self-care (01) | LOC: HBOWC 09:21 | PROVIDERS: ATTEND Nurse Practitioner Adult Health | DX: L89.612 Pressure ulcer of right heel, stage 2 (principal); L89.622 Pressure ulcer of left heel, stage 2; I87.2 Venous insufficiency (chronic) (peripheral); I89.0 Lymphedema, not elsewhere classified; P11.5 Birth injury to spine and spinal cord; Q05.9 Spina bifida, unspecified; G82.20 Paraplegia, unspecified; L84 Corns and callosities; I11.0 Hypertensive heart disease with heart failure; I50.9 Heart failure, unspecified; B35.1 Tinea unguium; R26.9 Unspecified abnormalities of gait and mobility; M24.572 Contracture, left ankle; M24.571 Contracture, right ankle; M24.575 Contracture, left foot; M24.574 Contracture, right foot; Z86.718 Personal history of other venous thrombosis and embolism; Z86.73 Personal history of transient ischemic attack (TIA), and cerebral infarction without residual deficits; Z79.82 Long term (current) use of aspirin | CPT/HCPCS: 29581 ==

== ENCOUNTER → 2020-11-23 | Outpatient (CLI) | payer OTHER | END | disposition home or self-care (01) | LOC: HBOWC 09:15 | PROVIDERS: ATTEND Nurse Practitioner Adult Health | DX: L89.612 Pressure ulcer of right heel, stage 2 (principal); L89.622 Pressure ulcer of left heel, stage 2; I87.2 Venous insufficiency (chronic) (peripheral); I89.0 Lymphedema, not elsewhere classified; L84 Corns and callosities; G82.20 Paraplegia, unspecified; I11.0 Hypertensive heart disease with heart failure; I50.9 Heart failure, unspecified; Q05.9 Spina bifida, unspecified; Z86.73 Personal history of transient ischemic attack (TIA), and cerebral infarction without residual deficits; Z86.718 Personal history of other venous thrombosis and embolism | CPT/HCPCS: G0463; Z7500 ==

== ENCOUNTER → 2020-11-30 | Outpatient (CLI) | payer OTHER | END | disposition home or self-care (01) | LOC: HBOWC 09:21 | PROVIDERS: ATTEND Nurse Practitioner Adult Health | DX: L89.612 Pressure ulcer of right heel, stage 2 (principal); L89.622 Pressure ulcer of left heel, stage 2; I87.2 Venous insufficiency (chronic) (peripheral); I89.0 Lymphedema, not elsewhere classified; P11.5 Birth injury to spine and spinal cord; Q05.9 Spina bifida, unspecified; G82.20 Paraplegia, unspecified; L84 Corns and callosities; I11.0 Hypertensive heart disease with heart failure; I50.9 Heart failure, unspecified; B35.1 Tinea unguium; R26.9 Unspecified abnormalities of gait and mobility; M24.572 Contracture, left ankle; M24.571 Contracture, right ankle; M24.575 Contracture, left foot; M24.574 Contracture, right foot; Z86.718 Personal history of other venous thrombosis and embolism; Z86.73 Personal history of transient ischemic attack (TIA), and cerebral infarction without residual deficits; Z79.82 Long term (current) use of aspirin ==

== ENCOUNTER → 2020-12-07 | Outpatient (CLI) | payer OTHER ==
[~2020-12-07] MED LIST changes: +METH-659 PO; -METH500T7 PO; -OXYC-530 PO; +OXYC1TAB18 PO
== END | disposition home or self-care (01) ==
LOC: HBOWC 09:15
PROVIDERS: ATTEND Nurse Practitioner Adult Health
DX: L89.612 Pressure ulcer of right heel, stage 2 (principal); L89.622 Pressure ulcer of left heel, stage 2; I87.2 Venous insufficiency (chronic) (peripheral); I89.0 Lymphedema, not elsewhere classified; P11.5 Birth injury to spine and spinal cord; Q05.9 Spina bifida, unspecified; G82.20 Paraplegia, unspecified; L84 Corns and callosities; I11.0 Hypertensive heart disease with heart failure; I50.9 Heart failure, unspecified; B35.1 Tinea unguium; R26.9 Unspecified abnormalities of gait and mobility; M24.572 Contracture, left ankle; M24.571 Contracture, right ankle; M24.575 Contracture, left foot; M24.574 Contracture, right foot; Z86.718 Personal history of other venous thrombosis and embolism; Z86.73 Personal history of transient ischemic attack (TIA), and cerebral infarction without residual deficits; Z79.82 Long term (current) use of aspirin
CPT/HCPCS: G0463; Z7500

== ENCOUNTER → 2020-12-14 | Outpatient (CLI) | payer OTHER | END | disposition home or self-care (01) | LOC: HBOWC 09:27 | PROVIDERS: ATTEND Nurse Practitioner Adult Health | DX: L89.612 Pressure ulcer of right heel, stage 2 (principal); L89.622 Pressure ulcer of left heel, stage 2; I87.2 Venous insufficiency (chronic) (peripheral); I89.0 Lymphedema, not elsewhere classified; P11.5 Birth injury to spine and spinal cord; Q05.9 Spina bifida, unspecified; G82.20 Paraplegia, unspecified; L84 Corns and callosities; I11.0 Hypertensive heart disease with heart failure; I50.9 Heart failure, unspecified; B35.1 Tinea unguium; R26.9 Unspecified abnormalities of gait and mobility; M24.572 Contracture, left ankle; M24.571 Contracture, right ankle; M24.575 Contracture, left foot; M24.574 Contracture, right foot; Z86.718 Personal history of other venous thrombosis and embolism; Z86.73 Personal history of transient ischemic attack (TIA), and cerebral infarction without residual deficits; Z79.82 Long term (current) use of aspirin | CPT/HCPCS: 29581 ==

== ENCOUNTER → 2020-12-21 | Outpatient (CLI) | payer OTHER | END | disposition home or self-care (01) | LOC: HBOWC 09:38 | PROVIDERS: ATTEND Nurse Practitioner Adult Health | DX: L89.612 Pressure ulcer of right heel, stage 2 (principal); L89.622 Pressure ulcer of left heel, stage 2; I87.2 Venous insufficiency (chronic) (peripheral); I89.0 Lymphedema, not elsewhere classified; P11.5 Birth injury to spine and spinal cord; Q05.9 Spina bifida, unspecified; G82.20 Paraplegia, unspecified; L84 Corns and callosities; I11.0 Hypertensive heart disease with heart failure; I50.9 Heart failure, unspecified; B35.1 Tinea unguium; R26.9 Unspecified abnormalities of gait and mobility; M24.572 Contracture, left ankle; M24.571 Contracture, right ankle; M24.575 Contracture, left foot; M24.574 Contracture, right foot; Z86.718 Personal history of other venous thrombosis and embolism; Z86.73 Personal history of transient ischemic attack (TIA), and cerebral infarction without residual deficits; Z79.82 Long term (current) use of aspirin ==

== ENCOUNTER → 2020-12-28 | Outpatient (CLI) | payer OTHER | END | disposition home or self-care (01) | LOC: HBOWC 09:08 | PROVIDERS: ATTEND Nurse Practitioner Adult Health | DX: L89.612 Pressure ulcer of right heel, stage 2 (principal); L89.622 Pressure ulcer of left heel, stage 2; I87.2 Venous insufficiency (chronic) (peripheral); I89.0 Lymphedema, not elsewhere classified; P11.5 Birth injury to spine and spinal cord; Q05.9 Spina bifida, unspecified; G82.20 Paraplegia, unspecified; L84 Corns and callosities; I11.0 Hypertensive heart disease with heart failure; I50.9 Heart failure, unspecified; B35.1 Tinea unguium; R26.9 Unspecified abnormalities of gait and mobility; M24.571 Contracture, right ankle; M24.572 Contracture, left ankle; M24.575 Contracture, left foot; M24.574 Contracture, right foot; Z86.718 Personal history of other venous thrombosis and embolism; Z86.73 Personal history of transient ischemic attack (TIA), and cerebral infarction without residual deficits; Z79.82 Long term (current) use of aspirin ==

== ENCOUNTER → 2021-01-04 | Outpatient (CLI) | payer OTHER | END | disposition home or self-care (01) | LOC: HBOWC 09:30 | PROVIDERS: ATTEND Nurse Practitioner Adult Health | DX: L89.612 Pressure ulcer of right heel, stage 2 (principal); L89.622 Pressure ulcer of left heel, stage 2; I87.2 Venous insufficiency (chronic) (peripheral); I89.0 Lymphedema, not elsewhere classified; P11.5 Birth injury to spine and spinal cord; Q05.9 Spina bifida, unspecified; G82.20 Paraplegia, unspecified; L84 Corns and callosities; I11.0 Hypertensive heart disease with heart failure; I50.9 Heart failure, unspecified; B35.1 Tinea unguium; R26.9 Unspecified abnormalities of gait and mobility; M24.571 Contracture, right ankle; M24.572 Contracture, left ankle; M24.575 Contracture, left foot; M24.574 Contracture, right foot; Z86.718 Personal history of other venous thrombosis and embolism; Z86.73 Personal history of transient ischemic attack (TIA), and cerebral infarction without residual deficits; Z79.82 Long term (current) use of aspirin | CPT/HCPCS: 97597 ==

== ENCOUNTER → 2021-01-11 | Outpatient (CLI) | payer OTHER | END | disposition home or self-care (01) | LOC: HBOWC 09:18 | PROVIDERS: ATTEND Nurse Practitioner Adult Health | DX: L89.612 Pressure ulcer of right heel, stage 2 (principal); L89.622 Pressure ulcer of left heel, stage 2; I87.2 Venous insufficiency (chronic) (peripheral); I89.0 Lymphedema, not elsewhere classified; Q05.9 Spina bifida, unspecified; G82.20 Paraplegia, unspecified; L84 Corns and callosities; I11.0 Hypertensive heart disease with heart failure; I50.9 Heart failure, unspecified; Z86.718 Personal history of other venous thrombosis and embolism; Z86.73 Personal history of transient ischemic attack (TIA), and cerebral infarction without residual deficits; Z79.899 Other long term (current) drug therapy; Z79.82 Long term (current) use of aspirin | CPT/HCPCS: 99214; G0463 ==

== ENCOUNTER → 2021-01-18 | Outpatient (CLI) | payer OTHER | END | disposition home or self-care (01) | LOC: HBOWC 09:27 | PROVIDERS: ATTEND Nurse Practitioner Adult Health | DX: L89.612 Pressure ulcer of right heel, stage 2 (principal); L89.622 Pressure ulcer of left heel, stage 2; I87.2 Venous insufficiency (chronic) (peripheral); I89.0 Lymphedema, not elsewhere classified; Q05.9 Spina bifida, unspecified; G83.9 Paralytic syndrome, unspecified; L84 Corns and callosities; I11.0 Hypertensive heart disease with heart failure; I50.9 Heart failure, unspecified; Z86.73 Personal history of transient ischemic attack (TIA), and cerebral infarction without residual deficits; Z86.718 Personal history of other venous thrombosis and embolism; Z79.82 Long term (current) use of aspirin; Z79.899 Other long term (current) drug therapy | CPT/HCPCS: 29581 ==

== ENCOUNTER → 2021-02-01 | Outpatient (CLI) | payer OTHER ==
[~2021-02-01] MED LIST changes: -OXYC1TAB18 PO; +OXYC1TAB6 PO
== END | disposition home or self-care (01) ==
LOC: HBOWC 09:06
PROVIDERS: ATTEND Nurse Practitioner Adult Health
DX: L89.622 Pressure ulcer of left heel, stage 2 (principal); L89.612 Pressure ulcer of right heel, stage 2; I87.2 Venous insufficiency (chronic) (peripheral); I89.0 Lymphedema, not elsewhere classified; Q05.9 Spina bifida, unspecified; G82.20 Paraplegia, unspecified; L84 Corns and callosities; I11.0 Hypertensive heart disease with heart failure; I50.9 Heart failure, unspecified; Z86.73 Personal history of transient ischemic attack (TIA), and cerebral infarction without residual deficits; Z86.718 Personal history of other venous thrombosis and embolism; Z79.82 Long term (current) use of aspirin; Z79.899 Other long term (current) drug therapy
CPT/HCPCS: 97597; 97598

== ENCOUNTER → 2021-02-08 | Outpatient (CLI) | payer OTHER | END | disposition home or self-care (01) | LOC: HBOWC 08:55 | PROVIDERS: ATTEND Nurse Practitioner Adult Health | DX: L89.612 Pressure ulcer of right heel, stage 2 (principal); L89.622 Pressure ulcer of left heel, stage 2; I87.2 Venous insufficiency (chronic) (peripheral); I89.0 Lymphedema, not elsewhere classified; Q05.9 Spina bifida, unspecified; I11.0 Hypertensive heart disease with heart failure; I50.9 Heart failure, unspecified; G82.20 Paraplegia, unspecified; L84 Corns and callosities; Z86.718 Personal history of other venous thrombosis and embolism; Z79.899 Other long term (current) drug therapy; Z79.82 Long term (current) use of aspirin; Z86.73 Personal history of transient ischemic attack (TIA), and cerebral infarction without residual deficits | CPT/HCPCS: 99215 ==

== ENCOUNTER → 2021-02-22 | Outpatient (CLI) | payer OTHER | END | disposition home or self-care (01) | LOC: HBOWC 09:32 | PROVIDERS: ATTEND Nurse Practitioner Adult Health | DX: L89.612 Pressure ulcer of right heel, stage 2 (principal); L89.622 Pressure ulcer of left heel, stage 2; I87.2 Venous insufficiency (chronic) (peripheral); I89.0 Lymphedema, not elsewhere classified; Q05.9 Spina bifida, unspecified; G82.20 Paraplegia, unspecified; L84 Corns and callosities; I11.0 Hypertensive heart disease with heart failure; I50.9 Heart failure, unspecified; R26.9 Unspecified abnormalities of gait and mobility; Z86.73 Personal history of transient ischemic attack (TIA), and cerebral infarction without residual deficits; Z86.718 Personal history of other venous thrombosis and embolism; Z79.82 Long term (current) use of aspirin; Z79.899 Other long term (current) drug therapy | CPT/HCPCS: 97597; 99215 ==

== ENCOUNTER → 2021-03-01 | Outpatient (CLI) | payer OTHER | END | disposition home or self-care (01) | LOC: HBOWC 09:33 | PROVIDERS: ATTEND Nurse Practitioner Adult Health | DX: L89.612 Pressure ulcer of right heel, stage 2 (principal); L89.622 Pressure ulcer of left heel, stage 2; I87.2 Venous insufficiency (chronic) (peripheral); I89.0 Lymphedema, not elsewhere classified; Q05.9 Spina bifida, unspecified; G82.20 Paraplegia, unspecified; L84 Corns and callosities; I11.0 Hypertensive heart disease with heart failure; I50.9 Heart failure, unspecified; R26.9 Unspecified abnormalities of gait and mobility; Z86.73 Personal history of transient ischemic attack (TIA), and cerebral infarction without residual deficits; Z86.718 Personal history of other venous thrombosis and embolism; Z79.82 Long term (current) use of aspirin; Z79.899 Other long term (current) drug therapy | CPT/HCPCS: 97597; 97598; 99215 ==

== ENCOUNTER → 2021-03-08 | Outpatient (CLI) | payer OTHER ==
[~2021-03-08] MED LIST changes: +LIDOCAINE 2% 5 ML JELLY TP ONE
== END | disposition home or self-care (01) ==
LOC: HBOWC 09:34
PROVIDERS: ATTEND Nurse Practitioner Adult Health
DX: L89.612 Pressure ulcer of right heel, stage 2 (principal); L89.622 Pressure ulcer of left heel, stage 2; I87.2 Venous insufficiency (chronic) (peripheral); I89.0 Lymphedema, not elsewhere classified; Q05.9 Spina bifida, unspecified; G82.20 Paraplegia, unspecified; L84 Corns and callosities; I11.0 Hypertensive heart disease with heart failure; I50.9 Heart failure, unspecified; R26.9 Unspecified abnormalities of gait and mobility; Z86.73 Personal history of transient ischemic attack (TIA), and cerebral infarction without residual deficits; Z86.718 Personal history of other venous thrombosis and embolism; Z79.82 Long term (current) use of aspirin; Z79.899 Other long term (current) drug therapy
CPT/HCPCS: 97597; 97598; 99215

== ENCOUNTER → 2021-03-15 | Outpatient (CLI) | payer OTHER ==
[~2021-03-15] MED LIST changes: -LIDOCAINE 2% 5 ML JELLY TP ONE
== END | disposition home or self-care (01) ==
LOC: HBOWC 09:32
PROVIDERS: ATTEND Nurse Practitioner Adult Health
DX: L89.612 Pressure ulcer of right heel, stage 2 (principal); L89.622 Pressure ulcer of left heel, stage 2; I87.2 Venous insufficiency (chronic) (peripheral); I89.0 Lymphedema, not elsewhere classified; Q05.9 Spina bifida, unspecified; G82.20 Paraplegia, unspecified; L84 Corns and callosities; I11.0 Hypertensive heart disease with heart failure; I50.9 Heart failure, unspecified; R26.9 Unspecified abnormalities of gait and mobility; Z86.73 Personal history of transient ischemic attack (TIA), and cerebral infarction without residual deficits; Z86.718 Personal history of other venous thrombosis and embolism; Z79.82 Long term (current) use of aspirin; Z79.899 Other long term (current) drug therapy
CPT/HCPCS: 97597; 99215

== ENCOUNTER → 2021-03-22 | Outpatient (CLI) | payer OTHER | END | disposition home or self-care (01) | LOC: HBOWC 09:22 | PROVIDERS: ATTEND Nurse Practitioner Adult Health | DX: L89.612 Pressure ulcer of right heel, stage 2 (principal); L89.622 Pressure ulcer of left heel, stage 2; I87.2 Venous insufficiency (chronic) (peripheral); I89.0 Lymphedema, not elsewhere classified; L84 Corns and callosities; Q05.9 Spina bifida, unspecified; G82.20 Paraplegia, unspecified; I11.0 Hypertensive heart disease with heart failure; I50.9 Heart failure, unspecified; Z86.73 Personal history of transient ischemic attack (TIA), and cerebral infarction without residual deficits; Z86.718 Personal history of other venous thrombosis and embolism; Z79.82 Long term (current) use of aspirin; Z79.899 Other long term (current) drug therapy | CPT/HCPCS: 29581 ==

== ENCOUNTER → 2021-03-29 | Outpatient (CLI) | payer OTHER | END | disposition home or self-care (01) | LOC: HBOWC 09:30 | PROVIDERS: ATTEND Nurse Practitioner Adult Health | DX: L89.612 Pressure ulcer of right heel, stage 2 (principal); L89.622 Pressure ulcer of left heel, stage 2; I87.2 Venous insufficiency (chronic) (peripheral); I89.0 Lymphedema, not elsewhere classified; Q05.9 Spina bifida, unspecified; G82.20 Paraplegia, unspecified; L84 Corns and callosities; I11.0 Hypertensive heart disease with heart failure; I50.9 Heart failure, unspecified; R26.9 Unspecified abnormalities of gait and mobility; Z86.73 Personal history of transient ischemic attack (TIA), and cerebral infarction without residual deficits; Z86.718 Personal history of other venous thrombosis and embolism; Z79.82 Long term (current) use of aspirin; Z79.899 Other long term (current) drug therapy | CPT/HCPCS: 99215; G0463; Z7500 ==

== ENCOUNTER → 2021-04-05 | Outpatient (CLI) | payer OTHER | END | disposition home or self-care (01) | LOC: HBOWC 09:18 | PROVIDERS: ATTEND Nurse Practitioner Adult Health | DX: L89.612 Pressure ulcer of right heel, stage 2 (principal); L89.622 Pressure ulcer of left heel, stage 2; I87.2 Venous insufficiency (chronic) (peripheral); I89.0 Lymphedema, not elsewhere classified; Q05.9 Spina bifida, unspecified; G82.20 Paraplegia, unspecified; L84 Corns and callosities; I11.0 Hypertensive heart disease with heart failure; I50.9 Heart failure, unspecified; R26.9 Unspecified abnormalities of gait and mobility; Z86.73 Personal history of transient ischemic attack (TIA), and cerebral infarction without residual deficits; Z86.718 Personal history of other venous thrombosis and embolism; Z79.82 Long term (current) use of aspirin; Z79.899 Other long term (current) drug therapy | CPT/HCPCS: G0463; Z7500 ==

== ENCOUNTER → 2021-04-12 | Outpatient (CLI) | payer OTHER | END | disposition home or self-care (01) | LOC: HBOWC 09:15 | PROVIDERS: ATTEND Nurse Practitioner Adult Health | DX: L89.612 Pressure ulcer of right heel, stage 2 (principal); L89.622 Pressure ulcer of left heel, stage 2; I87.2 Venous insufficiency (chronic) (peripheral); I89.0 Lymphedema, not elsewhere classified; Q05.9 Spina bifida, unspecified; G82.20 Paraplegia, unspecified; L84 Corns and callosities; I11.0 Hypertensive heart disease with heart failure; I50.9 Heart failure, unspecified; R26.9 Unspecified abnormalities of gait and mobility; Z86.73 Personal history of transient ischemic attack (TIA), and cerebral infarction without residual deficits; Z86.718 Personal history of other venous thrombosis and embolism; Z79.82 Long term (current) use of aspirin; Z79.899 Other long term (current) drug therapy | CPT/HCPCS: 97597; G0463 ==

== ENCOUNTER → 2021-04-19 | Outpatient (CLI) | payer OTHER | END | disposition home or self-care (01) | LOC: HBOWC 09:34 | PROVIDERS: ATTEND Nurse Practitioner Adult Health | DX: L89.612 Pressure ulcer of right heel, stage 2 (principal); L89.622 Pressure ulcer of left heel, stage 2; I87.2 Venous insufficiency (chronic) (peripheral); I89.0 Lymphedema, not elsewhere classified; Q05.9 Spina bifida, unspecified; G82.20 Paraplegia, unspecified; L84 Corns and callosities; I11.0 Hypertensive heart disease with heart failure; I50.9 Heart failure, unspecified; R26.9 Unspecified abnormalities of gait and mobility; Z86.73 Personal history of transient ischemic attack (TIA), and cerebral infarction without residual deficits; Z86.718 Personal history of other venous thrombosis and embolism; Z79.82 Long term (current) use of aspirin; Z79.899 Other long term (current) drug therapy | CPT/HCPCS: G0463; Z7500 ==

== ENCOUNTER → 2021-04-26 | Outpatient (CLI) | payer OTHER | END | disposition home or self-care (01) | LOC: HBOWC 09:24 | PROVIDERS: ATTEND Nurse Practitioner Adult Health | DX: L89.612 Pressure ulcer of right heel, stage 2 (principal); L89.622 Pressure ulcer of left heel, stage 2; I87.2 Venous insufficiency (chronic) (peripheral); I89.0 Lymphedema, not elsewhere classified; Q05.9 Spina bifida, unspecified; G82.20 Paraplegia, unspecified; L84 Corns and callosities; I11.0 Hypertensive heart disease with heart failure; I50.9 Heart failure, unspecified; R26.9 Unspecified abnormalities of gait and mobility; Z86.73 Personal history of transient ischemic attack (TIA), and cerebral infarction without residual deficits; Z86.718 Personal history of other venous thrombosis and embolism; Z79.82 Long term (current) use of aspirin; Z79.899 Other long term (current) drug therapy | CPT/HCPCS: G0463 ==

== ENCOUNTER → 2021-05-03 | Outpatient (CLI) | payer OTHER | END | disposition home or self-care (01) | LOC: HBOWC 09:30 | PROVIDERS: ATTEND Nurse Practitioner Adult Health | DX: L89.612 Pressure ulcer of right heel, stage 2 (principal); L89.622 Pressure ulcer of left heel, stage 2; I87.2 Venous insufficiency (chronic) (peripheral); L84 Corns and callosities; I89.0 Lymphedema, not elsewhere classified; G82.20 Paraplegia, unspecified; Q05.9 Spina bifida, unspecified; I11.0 Hypertensive heart disease with heart failure; I50.9 Heart failure, unspecified; Z86.718 Personal history of other venous thrombosis and embolism; Z86.73 Personal history of transient ischemic attack (TIA), and cerebral infarction without residual deficits; Z79.82 Long term (current) use of aspirin; Z79.899 Other long term (current) drug therapy | CPT/HCPCS: 97597; G0463 ==

== ENCOUNTER → 2021-05-10 | Outpatient (CLI) | payer OTHER | END | disposition home or self-care (01) | LOC: HBOWC 09:26 | PROVIDERS: ATTEND Nurse Practitioner Adult Health | DX: L89.612 Pressure ulcer of right heel, stage 2 (principal); L89.622 Pressure ulcer of left heel, stage 2; I87.2 Venous insufficiency (chronic) (peripheral); L84 Corns and callosities; I89.0 Lymphedema, not elsewhere classified; Q05.9 Spina bifida, unspecified; G82.20 Paraplegia, unspecified; I11.0 Hypertensive heart disease with heart failure; I50.9 Heart failure, unspecified; Z86.73 Personal history of transient ischemic attack (TIA), and cerebral infarction without residual deficits; Z86.718 Personal history of other venous thrombosis and embolism; Z79.899 Other long term (current) drug therapy | CPT/HCPCS: G0463; Z7500 ==

== ENCOUNTER → 2021-05-17 | Outpatient (CLI) | payer OTHER | END | disposition home or self-care (01) | LOC: HBOWC 09:33 | PROVIDERS: ATTEND Nurse Practitioner Adult Health | DX: L89.612 Pressure ulcer of right heel, stage 2 (principal); L89.622 Pressure ulcer of left heel, stage 2; I87.2 Venous insufficiency (chronic) (peripheral); I89.0 Lymphedema, not elsewhere classified; I10 Essential (primary) hypertension; L84 Corns and callosities; Q05.9 Spina bifida, unspecified; G82.20 Paraplegia, unspecified; Z86.718 Personal history of other venous thrombosis and embolism; Z86.73 Personal history of transient ischemic attack (TIA), and cerebral infarction without residual deficits | CPT/HCPCS: G0463; Z7500 ==

== ENCOUNTER → 2021-05-24 | Outpatient (CLI) | payer OTHER | END | disposition home or self-care (01) | LOC: HBOWC 09:09 | PROVIDERS: ATTEND Nurse Practitioner Adult Health | DX: L89.612 Pressure ulcer of right heel, stage 2 (principal); L89.622 Pressure ulcer of left heel, stage 2; I87.2 Venous insufficiency (chronic) (peripheral); I89.0 Lymphedema, not elsewhere classified; L84 Corns and callosities; Q05.9 Spina bifida, unspecified; G82.20 Paraplegia, unspecified; I50.9 Heart failure, unspecified; I11.0 Hypertensive heart disease with heart failure; Z86.718 Personal history of other venous thrombosis and embolism; Z86.73 Personal history of transient ischemic attack (TIA), and cerebral infarction without residual deficits; Z79.899 Other long term (current) drug therapy; Z79.82 Long term (current) use of aspirin; Z88.5 Allergy status to narcotic agent | CPT/HCPCS: 97597; G0463 ==

== ENCOUNTER → 2021-06-01 | Outpatient (CLI) | payer OTHER ==
[~2021-06-01] MED LIST changes: +LIDOCAINE 2% 5 ML JELLY TP ONE
== END | disposition home or self-care (01) ==
LOC: HBOWC 10:36
PROVIDERS: ATTEND Podiatrist
DX: L89.612 Pressure ulcer of right heel, stage 2 (principal); L89.622 Pressure ulcer of left heel, stage 2; I87.2 Venous insufficiency (chronic) (peripheral); I89.0 Lymphedema, not elsewhere classified; Q05.9 Spina bifida, unspecified; L84 Corns and callosities; I11.0 Hypertensive heart disease with heart failure; I50.9 Heart failure, unspecified; G82.20 Paraplegia, unspecified; Z86.718 Personal history of other venous thrombosis and embolism; Z79.82 Long term (current) use of aspirin; Z79.899 Other long term (current) drug therapy; Z86.73 Personal history of transient ischemic attack (TIA), and cerebral infarction without residual deficits
CPT/HCPCS: 11042; 97597; G0463

== ENCOUNTER → 2021-06-08 | Outpatient (CLI) | payer OTHER ==
[~2021-06-08] MED LIST changes: +IBUPROFEN 200 MG TABLET PO ONE; -LIDOCAINE 2% 5 ML JELLY TP ONE
== END | disposition home or self-care (01) ==
LOC: HBOWC 10:30
PROVIDERS: ATTEND Podiatrist
DX: L89.612 Pressure ulcer of right heel, stage 2 (principal); L89.622 Pressure ulcer of left heel, stage 2; S80.822A Blister (nonthermal), left lower leg, initial encounter; S90.425A Blister (nonthermal), left lesser toe(s), initial encounter; I87.2 Venous insufficiency (chronic) (peripheral); I89.0 Lymphedema, not elsewhere classified; Q05.9 Spina bifida, unspecified; L84 Corns and callosities; I11.0 Hypertensive heart disease with heart failure; I50.9 Heart failure, unspecified; G82.20 Paraplegia, unspecified; Z86.718 Personal history of other venous thrombosis and embolism; Z79.82 Long term (current) use of aspirin; Z79.899 Other long term (current) drug therapy; Z86.73 Personal history of transient ischemic attack (TIA), and cerebral infarction without residual deficits; Z88.5 Allergy status to narcotic agent; X58.XXXA Exposure to other specified factors, initial encounter; Y93.89 Activity, other specified; Y92.89 Other specified places as the place of occurrence of the external cause; Y99.8 Other external cause status
CPT/HCPCS: 11042; G0463

== ENCOUNTER → 2021-06-14 | Outpatient (CLI) | payer OTHER ==
[~2021-06-14] MED LIST changes: -IBUPROFEN 200 MG TABLET PO ONE
== END | disposition home or self-care (01) ==
LOC: HBOWC 09:29
PROVIDERS: ATTEND Nurse Practitioner Adult Health
DX: L89.612 Pressure ulcer of right heel, stage 2 (principal); L89.622 Pressure ulcer of left heel, stage 2; S80.822D Blister (nonthermal), left lower leg, subsequent encounter; S90.425D Blister (nonthermal), left lesser toe(s), subsequent encounter; S80.822A Blister (nonthermal), left lower leg, initial encounter; I87.2 Venous insufficiency (chronic) (peripheral); I89.0 Lymphedema, not elsewhere classified; Q05.9 Spina bifida, unspecified; L84 Corns and callosities; I11.0 Hypertensive heart disease with heart failure; I50.9 Heart failure, unspecified; G82.20 Paraplegia, unspecified; Z86.718 Personal history of other venous thrombosis and embolism; Z79.82 Long term (current) use of aspirin; Z79.899 Other long term (current) drug therapy; Z86.73 Personal history of transient ischemic attack (TIA), and cerebral infarction without residual deficits; Z88.5 Allergy status to narcotic agent; X58.XXXD Exposure to other specified factors, subsequent encounter; X58.XXXA Exposure to other specified factors, initial encounter; Y93.89 Activity, other specified; Y92.89 Other specified places as the place of occurrence of the external cause; Y99.8 Other external cause status
CPT/HCPCS: G0463; Z7500

== ENCOUNTER → 2021-06-21 | Outpatient (CLI) | payer OTHER | END | disposition home or self-care (01) | LOC: HBOWC 09:25 | PROVIDERS: ATTEND Nurse Practitioner Adult Health | DX: L89.612 Pressure ulcer of right heel, stage 2 (principal); L89.622 Pressure ulcer of left heel, stage 2; S80.822D Blister (nonthermal), left lower leg, subsequent encounter; I87.2 Venous insufficiency (chronic) (peripheral); I89.0 Lymphedema, not elsewhere classified; Q05.9 Spina bifida, unspecified; L84 Corns and callosities; I11.0 Hypertensive heart disease with heart failure; I50.9 Heart failure, unspecified; G82.20 Paraplegia, unspecified; Z86.718 Personal history of other venous thrombosis and embolism; Z79.82 Long term (current) use of aspirin; Z79.899 Other long term (current) drug therapy; Z86.73 Personal history of transient ischemic attack (TIA), and cerebral infarction without residual deficits; Z88.5 Allergy status to narcotic agent; X58.XXXD Exposure to other specified factors, subsequent encounter | CPT/HCPCS: G0463 ==

== ENCOUNTER → 2021-06-28 | Outpatient (CLI) | payer OTHER ==
[~2021-06-28] MED LIST changes: +SILVER NITRATE APPLICATOR 1 EA STICK TP ONE
== END | disposition home or self-care (01) ==
LOC: HBOWC 09:12
PROVIDERS: ATTEND Nurse Practitioner Adult Health
DX: L89.612 Pressure ulcer of right heel, stage 2 (principal); L89.622 Pressure ulcer of left heel, stage 2; S80.822D Blister (nonthermal), left lower leg, subsequent encounter; I87.2 Venous insufficiency (chronic) (peripheral); I89.0 Lymphedema, not elsewhere classified; Q05.9 Spina bifida, unspecified; L84 Corns and callosities; I11.0 Hypertensive heart disease with heart failure; I50.9 Heart failure, unspecified; G82.20 Paraplegia, unspecified; Z86.718 Personal history of other venous thrombosis and embolism; Z79.82 Long term (current) use of aspirin; Z79.899 Other long term (current) drug therapy; Z86.73 Personal history of transient ischemic attack (TIA), and cerebral infarction without residual deficits; Z88.5 Allergy status to narcotic agent; X58.XXXD Exposure to other specified factors, subsequent encounter
CPT/HCPCS: G0463

== ENCOUNTER → 2021-07-06 | Outpatient (CLI) | payer OTHER ==
[~2021-07-06] MED LIST changes: -SILVER NITRATE APPLICATOR 1 EA STICK TP ONE
== END | disposition home or self-care (01) ==
LOC: HBOWC 09:32
PROVIDERS: ATTEND Podiatrist
DX: L89.612 Pressure ulcer of right heel, stage 2 (principal); L89.622 Pressure ulcer of left heel, stage 2; S80.822D Blister (nonthermal), left lower leg, subsequent encounter; I87.2 Venous insufficiency (chronic) (peripheral); I89.0 Lymphedema, not elsewhere classified; Q05.9 Spina bifida, unspecified; L84 Corns and callosities; I11.0 Hypertensive heart disease with heart failure; I50.9 Heart failure, unspecified; G82.20 Paraplegia, unspecified; Z86.718 Personal history of other venous thrombosis and embolism; Z79.899 Other long term (current) drug therapy; Z86.73 Personal history of transient ischemic attack (TIA), and cerebral infarction without residual deficits; X58.XXXD Exposure to other specified factors, subsequent encounter
CPT/HCPCS: 11042; 11045; G0463

== ENCOUNTER → 2021-07-13 | Outpatient (CLI) | payer OTHER | END | disposition home or self-care (01) | LOC: HBOWC 08:26 | PROVIDERS: ATTEND Podiatrist | DX: L89.612 Pressure ulcer of right heel, stage 2 (principal); L89.622 Pressure ulcer of left heel, stage 2; S80.822D Blister (nonthermal), left lower leg, subsequent encounter; S90.425D Blister (nonthermal), left lesser toe(s), subsequent encounter; I87.2 Venous insufficiency (chronic) (peripheral); I89.0 Lymphedema, not elsewhere classified; G83.9 Paralytic syndrome, unspecified; L84 Corns and callosities; I11.0 Hypertensive heart disease with heart failure; I50.9 Heart failure, unspecified; Q05.9 Spina bifida, unspecified; G82.20 Paraplegia, unspecified; Z86.718 Personal history of other venous thrombosis and embolism; Z86.73 Personal history of transient ischemic attack (TIA), and cerebral infarction without residual deficits; Z79.82 Long term (current) use of aspirin; Z79.899 Other long term (current) drug therapy; X58.XXXD Exposure to other specified factors, subsequent encounter | CPT/HCPCS: 11042; 11045; G0463 ==

== ENCOUNTER → 2021-07-20 | Outpatient (CLI) | payer OTHER | END | disposition home or self-care (01) | LOC: HBOWC 09:28 | PROVIDERS: ATTEND Podiatrist | DX: L89.612 Pressure ulcer of right heel, stage 2 (principal); L89.622 Pressure ulcer of left heel, stage 2; S80.822D Blister (nonthermal), left lower leg, subsequent encounter; I87.2 Venous insufficiency (chronic) (peripheral); I89.0 Lymphedema, not elsewhere classified; L84 Corns and callosities; G83.9 Paralytic syndrome, unspecified; Q05.9 Spina bifida, unspecified; I11.0 Hypertensive heart disease with heart failure; I50.9 Heart failure, unspecified; Z86.718 Personal history of other venous thrombosis and embolism; Z86.73 Personal history of transient ischemic attack (TIA), and cerebral infarction without residual deficits; X58.XXXD Exposure to other specified factors, subsequent encounter | CPT/HCPCS: 11042; 11045; G0463 ==

== ENCOUNTER → 2021-07-27 | Outpatient (CLI) | payer OTHER ==
[~2021-07-27] MED LIST changes: +COLLAGENASE 250 UNITS/GM 30 GM OINTMENT TP ONE; +LIDOCAINE 4% 50 ML SOLUTION TP ONE; -METH-659 PO; +[UNRECOGNIZED DRUG - CODE] PO
== END | disposition home or self-care (01) ==
LOC: HBOWC 09:26
PROVIDERS: ATTEND Podiatrist
DX: L89.612 Pressure ulcer of right heel, stage 2 (principal); L89.622 Pressure ulcer of left heel, stage 2; S80.822D Blister (nonthermal), left lower leg, subsequent encounter; I87.2 Venous insufficiency (chronic) (peripheral); I89.0 Lymphedema, not elsewhere classified; L84 Corns and callosities; G83.9 Paralytic syndrome, unspecified; Q05.9 Spina bifida, unspecified; I11.0 Hypertensive heart disease with heart failure; I50.9 Heart failure, unspecified; Z86.718 Personal history of other venous thrombosis and embolism; Z79.82 Long term (current) use of aspirin; Z88.5 Allergy status to narcotic agent; Z79.899 Other long term (current) drug therapy; Z86.73 Personal history of transient ischemic attack (TIA), and cerebral infarction without residual deficits; X58.XXXD Exposure to other specified factors, subsequent encounter
CPT/HCPCS: 11042; 11045; G0463

== ENCOUNTER → 2021-08-03 | Outpatient (CLI) | payer OTHER ==
[~2021-08-03] MED LIST changes: -COLLAGENASE 250 UNITS/GM 30 GM OINTMENT TP ONE; +METH-659 PO; -[UNRECOGNIZED DRUG - CODE] PO
== END | disposition home or self-care (01) ==
LOC: HBOWC 09:18
PROVIDERS: ATTEND Podiatrist
DX: L89.612 Pressure ulcer of right heel, stage 2 (principal); L89.622 Pressure ulcer of left heel, stage 2; S80.822D Blister (nonthermal), left lower leg, subsequent encounter; I87.2 Venous insufficiency (chronic) (peripheral); I89.0 Lymphedema, not elsewhere classified; Q05.9 Spina bifida, unspecified; L84 Corns and callosities; I11.0 Hypertensive heart disease with heart failure; I50.9 Heart failure, unspecified; G82.20 Paraplegia, unspecified; Z86.718 Personal history of other venous thrombosis and embolism; Z86.73 Personal history of transient ischemic attack (TIA), and cerebral infarction without residual deficits; X58.XXXD Exposure to other specified factors, subsequent encounter
CPT/HCPCS: 11042; 11045; G0463

== ENCOUNTER → 2021-08-10 | Outpatient (CLI) | payer OTHER ==
[~2021-08-10] MED LIST changes: -LIDOCAINE 4% 50 ML SOLUTION TP ONE
== END | disposition home or self-care (01) ==
LOC: HBOWC 09:35
PROVIDERS: ATTEND Podiatrist
DX: L89.612 Pressure ulcer of right heel, stage 2 (principal); L89.622 Pressure ulcer of left heel, stage 2; S80.822D Blister (nonthermal), left lower leg, subsequent encounter; I87.2 Venous insufficiency (chronic) (peripheral); I89.0 Lymphedema, not elsewhere classified; Q05.9 Spina bifida, unspecified; L84 Corns and callosities; I11.0 Hypertensive heart disease with heart failure; I50.9 Heart failure, unspecified; G82.20 Paraplegia, unspecified; Z86.718 Personal history of other venous thrombosis and embolism; Z86.73 Personal history of transient ischemic attack (TIA), and cerebral infarction without residual deficits; Z79.82 Long term (current) use of aspirin; Z79.899 Other long term (current) drug therapy; Z88.5 Allergy status to narcotic agent; X58.XXXD Exposure to other specified factors, subsequent encounter
CPT/HCPCS: 11042; G0463

== ENCOUNTER → 2021-08-17 | Outpatient (CLI) | payer OTHER ==
[~2021-08-17] MED LIST changes: -POTA8TAB4 PO; +SLOWK8 PO
== END | disposition home or self-care (01) ==
LOC: HBOWC 09:26
PROVIDERS: ATTEND Podiatrist
DX: L89.612 Pressure ulcer of right heel, stage 2 (principal); L89.622 Pressure ulcer of left heel, stage 2; S80.822D Blister (nonthermal), left lower leg, subsequent encounter; I87.2 Venous insufficiency (chronic) (peripheral); I89.0 Lymphedema, not elsewhere classified; Q05.9 Spina bifida, unspecified; L84 Corns and callosities; I11.0 Hypertensive heart disease with heart failure; I50.9 Heart failure, unspecified; G82.20 Paraplegia, unspecified; R26.9 Unspecified abnormalities of gait and mobility; Z86.718 Personal history of other venous thrombosis and embolism; Z86.73 Personal history of transient ischemic attack (TIA), and cerebral infarction without residual deficits; Z79.82 Long term (current) use of aspirin; Z79.899 Other long term (current) drug therapy; Z88.5 Allergy status to narcotic agent; X58.XXXD Exposure to other specified factors, subsequent encounter
CPT/HCPCS: 11042; G0463

== ENCOUNTER → 2021-08-24 | Outpatient (CLI) | payer OTHER ==
[~2021-08-24] MED LIST changes: +LIDOCAINE 4% 50 ML SOLUTION TP ONE
== END | disposition home or self-care (01) ==
LOC: HBOWC 09:24
PROVIDERS: ATTEND Podiatrist
DX: L89.612 Pressure ulcer of right heel, stage 2 (principal); L89.622 Pressure ulcer of left heel, stage 2; S80.822D Blister (nonthermal), left lower leg, subsequent encounter; I87.2 Venous insufficiency (chronic) (peripheral); I89.0 Lymphedema, not elsewhere classified; Q05.9 Spina bifida, unspecified; L84 Corns and callosities; I11.0 Hypertensive heart disease with heart failure; I50.9 Heart failure, unspecified; G82.20 Paraplegia, unspecified; R26.9 Unspecified abnormalities of gait and mobility; Z86.718 Personal history of other venous thrombosis and embolism; Z86.73 Personal history of transient ischemic attack (TIA), and cerebral infarction without residual deficits; Z79.82 Long term (current) use of aspirin; Z79.899 Other long term (current) drug therapy; Z88.5 Allergy status to narcotic agent; X58.XXXD Exposure to other specified factors, subsequent encounter
CPT/HCPCS: 11042; G0463

== ENCOUNTER → 2021-08-31 | Outpatient (CLI) | payer OTHER ==
[~2021-08-31] MED LIST changes: -LIDOCAINE 4% 50 ML SOLUTION TP ONE
== END | disposition home or self-care (01) ==
LOC: HBOWC 09:21
PROVIDERS: ATTEND Podiatrist
DX: L89.612 Pressure ulcer of right heel, stage 2 (principal); L89.622 Pressure ulcer of left heel, stage 2; S80.822D Blister (nonthermal), left lower leg, subsequent encounter; I87.2 Venous insufficiency (chronic) (peripheral); I89.0 Lymphedema, not elsewhere classified; L84 Corns and callosities; G82.20 Paraplegia, unspecified; Q05.9 Spina bifida, unspecified; I11.0 Hypertensive heart disease with heart failure; I50.9 Heart failure, unspecified; Z86.718 Personal history of other venous thrombosis and embolism; Z86.73 Personal history of transient ischemic attack (TIA), and cerebral infarction without residual deficits; Z79.82 Long term (current) use of aspirin; Z79.899 Other long term (current) drug therapy; X58.XXXD Exposure to other specified factors, subsequent encounter
CPT/HCPCS: 11042; 97597; G0463

== ENCOUNTER → 2021-09-07 | Outpatient (CLI) | payer OTHER ==
[~2021-09-07] MED LIST changes: +LIDOCAINE 4% 50 ML SOLUTION TP ONE
== END | disposition home or self-care (01) ==
LOC: HBOWC 09:27
PROVIDERS: ATTEND Podiatrist
DX: L89.612 Pressure ulcer of right heel, stage 2 (principal); L89.622 Pressure ulcer of left heel, stage 2; S80.822D Blister (nonthermal), left lower leg, subsequent encounter; I87.2 Venous insufficiency (chronic) (peripheral); I89.0 Lymphedema, not elsewhere classified; G83.9 Paralytic syndrome, unspecified; Q05.9 Spina bifida, unspecified; I50.9 Heart failure, unspecified; I11.0 Hypertensive heart disease with heart failure; Z86.718 Personal history of other venous thrombosis and embolism; Z86.73 Personal history of transient ischemic attack (TIA), and cerebral infarction without residual deficits; X58.XXXD Exposure to other specified factors, subsequent encounter
CPT/HCPCS: 11042; G0463

== ENCOUNTER → 2021-09-14 | Outpatient (CLI) | payer OTHER ==
[~2021-09-14] MED LIST changes: -LIDOCAINE 4% 50 ML SOLUTION TP ONE
== END | disposition home or self-care (01) ==
LOC: HBOWC 09:24
PROVIDERS: ATTEND Podiatrist
DX: L89.612 Pressure ulcer of right heel, stage 2 (principal); S80.822D Blister (nonthermal), left lower leg, subsequent encounter; I87.2 Venous insufficiency (chronic) (peripheral); I89.0 Lymphedema, not elsewhere classified; Q05.9 Spina bifida, unspecified; G82.20 Paraplegia, unspecified; I11.0 Hypertensive heart disease with heart failure; I50.9 Heart failure, unspecified; Z86.718 Personal history of other venous thrombosis and embolism; Z79.899 Other long term (current) drug therapy; Z86.73 Personal history of transient ischemic attack (TIA), and cerebral infarction without residual deficits; X58.XXXD Exposure to other specified factors, subsequent encounter
CPT/HCPCS: 11042

== ENCOUNTER → 2021-09-28 | Outpatient (CLI) | payer OTHER ==
[~2021-09-28] MED LIST changes: +LIDOCAINE 4% 50 ML SOLUTION TP ONE
== END | disposition home or self-care (01) ==
LOC: HBOWC 09:33
PROVIDERS: ATTEND Podiatrist
DX: L89.612 Pressure ulcer of right heel, stage 2 (principal); L89.622 Pressure ulcer of left heel, stage 2; S91.311D Laceration without foreign body, right foot, subsequent encounter; S80.822D Blister (nonthermal), left lower leg, subsequent encounter; I87.2 Venous insufficiency (chronic) (peripheral); I89.0 Lymphedema, not elsewhere classified; Q05.9 Spina bifida, unspecified; G82.20 Paraplegia, unspecified; I11.0 Hypertensive heart disease with heart failure; I50.9 Heart failure, unspecified; Z86.718 Personal history of other venous thrombosis and embolism; Z79.899 Other long term (current) drug therapy; Z86.73 Personal history of transient ischemic attack (TIA), and cerebral infarction without residual deficits; Z79.82 Long term (current) use of aspirin; Z88.5 Allergy status to narcotic agent; X58.XXXD Exposure to other specified factors, subsequent encounter
CPT/HCPCS: 11042; G0463

== ENCOUNTER → 2021-10-05 | Outpatient (CLI) | payer OTHER | END | disposition home or self-care (01) | LOC: HBOWC 09:23 | PROVIDERS: ATTEND Podiatrist | DX: L89.612 Pressure ulcer of right heel, stage 2 (principal); L89.622 Pressure ulcer of left heel, stage 2; S91.311D Laceration without foreign body, right foot, subsequent encounter; S80.822D Blister (nonthermal), left lower leg, subsequent encounter; I87.2 Venous insufficiency (chronic) (peripheral); I89.0 Lymphedema, not elsewhere classified; L84 Corns and callosities; Q05.9 Spina bifida, unspecified; G82.20 Paraplegia, unspecified; I11.0 Hypertensive heart disease with heart failure; I50.9 Heart failure, unspecified; Z86.718 Personal history of other venous thrombosis and embolism; Z79.899 Other long term (current) drug therapy; Z86.73 Personal history of transient ischemic attack (TIA), and cerebral infarction without residual deficits; Z79.82 Long term (current) use of aspirin; Z88.5 Allergy status to narcotic agent; X58.XXXD Exposure to other specified factors, subsequent encounter | CPT/HCPCS: 11042; G0463 ==

== ENCOUNTER → 2021-10-12 | Outpatient (CLI) | payer OTHER ==
[~2021-10-12] MED LIST changes: -LIDOCAINE 4% 50 ML SOLUTION TP ONE
== END | disposition home or self-care (01) ==
LOC: HBOWC 09:03
PROVIDERS: ATTEND Podiatrist
DX: L89.612 Pressure ulcer of right heel, stage 2 (principal); L89.622 Pressure ulcer of left heel, stage 2; S91.311D Laceration without foreign body, right foot, subsequent encounter; S80.822D Blister (nonthermal), left lower leg, subsequent encounter; I87.2 Venous insufficiency (chronic) (peripheral); I89.0 Lymphedema, not elsewhere classified; L84 Corns and callosities; Q05.9 Spina bifida, unspecified; G82.20 Paraplegia, unspecified; I11.0 Hypertensive heart disease with heart failure; I50.9 Heart failure, unspecified; Z86.718 Personal history of other venous thrombosis and embolism; Z79.899 Other long term (current) drug therapy; Z86.73 Personal history of transient ischemic attack (TIA), and cerebral infarction without residual deficits; Z79.82 Long term (current) use of aspirin; Z88.5 Allergy status to narcotic agent; X58.XXXD Exposure to other specified factors, subsequent encounter
CPT/HCPCS: 11042; G0463

== ENCOUNTER → 2021-10-24 | Outpatient (CLI) | payer OTHER ==
[~2021-10-24] MED LIST changes: +LIDOCAINE 4% 50 ML SOLUTION TP ONE
== END | disposition home or self-care (01) ==
LOC: HBOWC 09:20
PROVIDERS: ATTEND Podiatrist
DX: L89.612 Pressure ulcer of right heel, stage 2 (principal); S91.311D Laceration without foreign body, right foot, subsequent encounter; S80.822D Blister (nonthermal), left lower leg, subsequent encounter; I87.2 Venous insufficiency (chronic) (peripheral); I89.0 Lymphedema, not elsewhere classified; L84 Corns and callosities; Q05.9 Spina bifida, unspecified; G82.20 Paraplegia, unspecified; I11.0 Hypertensive heart disease with heart failure; I50.9 Heart failure, unspecified; Z86.718 Personal history of other venous thrombosis and embolism; Z79.899 Other long term (current) drug therapy; Z86.73 Personal history of transient ischemic attack (TIA), and cerebral infarction without residual deficits; Z79.82 Long term (current) use of aspirin; Z88.5 Allergy status to narcotic agent; X58.XXXD Exposure to other specified factors, subsequent encounter
CPT/HCPCS: 11042; Z7610

== ENCOUNTER → 2021-11-02 | Outpatient (CLI) | payer OTHER ==
[~2021-11-02] MED LIST changes: +COLLAGENASE 250 UNITS/GM 30 GM OINTMENT TP ONE
== END | disposition home or self-care (01) ==
LOC: HBOWC 09:28
PROVIDERS: ATTEND Podiatrist
DX: L89.612 Pressure ulcer of right heel, stage 2 (principal); L89.622 Pressure ulcer of left heel, stage 2; L89.892 Pressure ulcer of other site, stage 2; S91.311D Laceration without foreign body, right foot, subsequent encounter; S80.821A Blister (nonthermal), right lower leg, initial encounter; S80.822D Blister (nonthermal), left lower leg, subsequent encounter; I89.0 Lymphedema, not elsewhere classified; I87.2 Venous insufficiency (chronic) (peripheral); L84 Corns and callosities; Q05.9 Spina bifida, unspecified; G82.20 Paraplegia, unspecified; I11.0 Hypertensive heart disease with heart failure; I50.9 Heart failure, unspecified; Z86.718 Personal history of other venous thrombosis and embolism; Z86.73 Personal history of transient ischemic attack (TIA), and cerebral infarction without residual deficits; Z79.82 Long term (current) use of aspirin; Z79.899 Other long term (current) drug therapy; Z88.5 Allergy status to narcotic agent; X58.XXXD Exposure to other specified factors, subsequent encounter; X58.XXXA Exposure to other specified factors, initial encounter; Y93.89 Activity, other specified; Y92.89 Other specified places as the place of occurrence of the external cause; Y99.8 Other external cause status
CPT/HCPCS: 11042; 11045; G0463

== ENCOUNTER → 2021-11-09 | Outpatient (CLI) | payer OTHER ==
[~2021-11-09] MED LIST changes: -COLLAGENASE 250 UNITS/GM 30 GM OINTMENT TP ONE
== END | disposition home or self-care (01) ==
LOC: HBOWC 09:11
PROVIDERS: ATTEND Podiatrist
DX: L89.612 Pressure ulcer of right heel, stage 2 (principal); L89.622 Pressure ulcer of left heel, stage 2; S91.311D Laceration without foreign body, right foot, subsequent encounter; S80.822D Blister (nonthermal), left lower leg, subsequent encounter; S80.821A Blister (nonthermal), right lower leg, initial encounter; G83.9 Paralytic syndrome, unspecified; Q05.9 Spina bifida, unspecified; I89.0 Lymphedema, not elsewhere classified; I87.2 Venous insufficiency (chronic) (peripheral); I11.0 Hypertensive heart disease with heart failure; I50.9 Heart failure, unspecified; Z86.718 Personal history of other venous thrombosis and embolism; Z86.73 Personal history of transient ischemic attack (TIA), and cerebral infarction without residual deficits; Z79.82 Long term (current) use of aspirin; Z79.899 Other long term (current) drug therapy; X58.XXXD Exposure to other specified factors, subsequent encounter; X58.XXXA Exposure to other specified factors, initial encounter; Y93.89 Activity, other specified; Y92.89 Other specified places as the place of occurrence of the external cause; Y99.8 Other external cause status
CPT/HCPCS: 11042; 11045; G0463

== ENCOUNTER → 2021-11-16 | Outpatient (CLI) | payer OTHER ==
[~2021-11-16] MED LIST changes: +COLLAGENASE 250 UNITS/GM 30 GM OINTMENT TP ONE
== END | disposition home or self-care (01) ==
LOC: HBOWC 08:25
PROVIDERS: ATTEND Podiatrist
DX: L89.612 Pressure ulcer of right heel, stage 2 (principal); L89.622 Pressure ulcer of left heel, stage 2; S91.311D Laceration without foreign body, right foot, subsequent encounter; S80.822D Blister (nonthermal), left lower leg, subsequent encounter; S80.821D Blister (nonthermal), right lower leg, subsequent encounter; G83.9 Paralytic syndrome, unspecified; Q05.9 Spina bifida, unspecified; I89.0 Lymphedema, not elsewhere classified; I87.2 Venous insufficiency (chronic) (peripheral); I11.0 Hypertensive heart disease with heart failure; I50.9 Heart failure, unspecified; Z86.718 Personal history of other venous thrombosis and embolism; Z86.73 Personal history of transient ischemic attack (TIA), and cerebral infarction without residual deficits; Z79.82 Long term (current) use of aspirin; Z79.899 Other long term (current) drug therapy; Z88.5 Allergy status to narcotic agent; X58.XXXD Exposure to other specified factors, subsequent encounter
CPT/HCPCS: 11042; 11045; G0463

== ENCOUNTER → 2021-11-23 | Outpatient (CLI) | payer OTHER ==
[~2021-11-23] MED LIST changes: -COLLAGENASE 250 UNITS/GM 30 GM OINTMENT TP ONE
== END | disposition home or self-care (01) ==
LOC: HBOWC 08:49
PROVIDERS: ATTEND Podiatrist
DX: L89.612 Pressure ulcer of right heel, stage 2 (principal); L89.622 Pressure ulcer of left heel, stage 2; S91.311D Laceration without foreign body, right foot, subsequent encounter; S80.822D Blister (nonthermal), left lower leg, subsequent encounter; G83.9 Paralytic syndrome, unspecified; Q05.9 Spina bifida, unspecified; I89.0 Lymphedema, not elsewhere classified; I87.2 Venous insufficiency (chronic) (peripheral); I11.0 Hypertensive heart disease with heart failure; I50.9 Heart failure, unspecified; L84 Corns and callosities; Z86.718 Personal history of other venous thrombosis and embolism; Z86.73 Personal history of transient ischemic attack (TIA), and cerebral infarction without residual deficits; Z79.82 Long term (current) use of aspirin; Z79.899 Other long term (current) drug therapy; Z88.5 Allergy status to narcotic agent; X58.XXXD Exposure to other specified factors, subsequent encounter
CPT/HCPCS: 11042; 11045; G0463

== ENCOUNTER → 2021-11-30 | Outpatient (CLI) | payer OTHER ==
[~2021-11-30] MED LIST changes: -LIDOCAINE 4% 50 ML SOLUTION TP ONE
== END | disposition home or self-care (01) ==
LOC: HBOWC 08:53
PROVIDERS: ATTEND Podiatrist
DX: L89.612 Pressure ulcer of right heel, stage 2 (principal); L89.622 Pressure ulcer of left heel, stage 2; S80.822D Blister (nonthermal), left lower leg, subsequent encounter; S91.311D Laceration without foreign body, right foot, subsequent encounter; I87.2 Venous insufficiency (chronic) (peripheral); L84 Corns and callosities; I89.0 Lymphedema, not elsewhere classified; Q05.9 Spina bifida, unspecified; G82.20 Paraplegia, unspecified; I11.0 Hypertensive heart disease with heart failure; I50.9 Heart failure, unspecified; Z86.718 Personal history of other venous thrombosis and embolism; Z86.73 Personal history of transient ischemic attack (TIA), and cerebral infarction without residual deficits; Z79.82 Long term (current) use of aspirin; Z79.899 Other long term (current) drug therapy; X58.XXXD Exposure to other specified factors, subsequent encounter
CPT/HCPCS: 11042; 11045; G0463

== ENCOUNTER → 2021-12-07 | Outpatient (CLI) | payer OTHER | END | disposition home or self-care (01) | LOC: HBOWC 09:22 | PROVIDERS: ATTEND Podiatrist | DX: L89.612 Pressure ulcer of right heel, stage 2 (principal); L89.622 Pressure ulcer of left heel, stage 2; S80.822D Blister (nonthermal), left lower leg, subsequent encounter; S91.311D Laceration without foreign body, right foot, subsequent encounter; I87.2 Venous insufficiency (chronic) (peripheral); L84 Corns and callosities; I89.0 Lymphedema, not elsewhere classified; Q05.9 Spina bifida, unspecified; G82.20 Paraplegia, unspecified; I11.0 Hypertensive heart disease with heart failure; I50.9 Heart failure, unspecified; Z86.718 Personal history of other venous thrombosis and embolism; Z86.73 Personal history of transient ischemic attack (TIA), and cerebral infarction without residual deficits; Z79.82 Long term (current) use of aspirin; Z79.899 Other long term (current) drug therapy; Z88.5 Allergy status to narcotic agent; X58.XXXD Exposure to other specified factors, subsequent encounter | CPT/HCPCS: 11042; 11045; G0463 ==

== ENCOUNTER → 2021-12-14 | Outpatient (CLI) | payer OTHER | END | disposition home or self-care (01) | LOC: HBOWC 09:22 | PROVIDERS: ATTEND Podiatrist | DX: L89.612 Pressure ulcer of right heel, stage 2 (principal); L89.622 Pressure ulcer of left heel, stage 2; S80.822D Blister (nonthermal), left lower leg, subsequent encounter; I87.2 Venous insufficiency (chronic) (peripheral); L84 Corns and callosities; I89.0 Lymphedema, not elsewhere classified; Q05.9 Spina bifida, unspecified; G82.20 Paraplegia, unspecified; I11.0 Hypertensive heart disease with heart failure; I50.9 Heart failure, unspecified; Z86.718 Personal history of other venous thrombosis and embolism; Z86.73 Personal history of transient ischemic attack (TIA), and cerebral infarction without residual deficits; Z79.82 Long term (current) use of aspirin; Z79.899 Other long term (current) drug therapy; Z88.5 Allergy status to narcotic agent; X58.XXXD Exposure to other specified factors, subsequent encounter | CPT/HCPCS: 11042; 11045; G0463 ==

== ENCOUNTER → 2021-12-21 | Outpatient (CLI) | payer OTHER | END | disposition home or self-care (01) | LOC: HBOWC 08:28 | PROVIDERS: ATTEND Podiatrist | DX: L89.612 Pressure ulcer of right heel, stage 2 (principal); L89.622 Pressure ulcer of left heel, stage 2; S80.822D Blister (nonthermal), left lower leg, subsequent encounter; S80.821D Blister (nonthermal), right lower leg, subsequent encounter; I87.2 Venous insufficiency (chronic) (peripheral); L84 Corns and callosities; I89.0 Lymphedema, not elsewhere classified; Q05.9 Spina bifida, unspecified; G82.20 Paraplegia, unspecified; I11.0 Hypertensive heart disease with heart failure; I50.9 Heart failure, unspecified; R26.9 Unspecified abnormalities of gait and mobility; Z86.718 Personal history of other venous thrombosis and embolism; Z86.73 Personal history of transient ischemic attack (TIA), and cerebral infarction without residual deficits; Z79.82 Long term (current) use of aspirin; Z79.899 Other long term (current) drug therapy; Z88.5 Allergy status to narcotic agent; X58.XXXD Exposure to other specified factors, subsequent encounter | CPT/HCPCS: 11042; 11045; G0463 ==

== ENCOUNTER → 2022-03-20 | Outpatient (CLI) | payer OTHER ==
[~2022-03-20] MED LIST changes: +ALBU0.212 NEB; +ASCO500 PO; +BISA10SU11 PR; +CEFX2I IV; +DIPH60LI2 PO; +ERTA1I IM; +FAMO20 PO; +HEPA500018 SQ; +LACT-356 PO; +MAGN-169 PO; +MULT-1366 PO; +OMEP20 PO; +VANC750V2 IV
== END | disposition home or self-care (01) ==
LOC: HBOWC 09:30
PROVIDERS: ATTEND Podiatrist
DX: L89.619 Pressure ulcer of right heel, unspecified stage (principal); L89.629 Pressure ulcer of left heel, unspecified stage; L89.899 Pressure ulcer of other site, unspecified stage; E11.621 Type 2 diabetes mellitus with foot ulcer; L97.412 Non-pressure chronic ulcer of right heel and midfoot with fat layer exposed; L97.422 Non-pressure chronic ulcer of left heel and midfoot with fat layer exposed; E11.622 Type 2 diabetes mellitus with other skin ulcer; L97.812 Non-pressure chronic ulcer of other part of right lower leg with fat layer exposed; I87.2 Venous insufficiency (chronic) (peripheral); L84 Corns and callosities; I89.0 Lymphedema, not elsewhere classified; Q05.9 Spina bifida, unspecified; D63.8 Anemia in other chronic diseases classified elsewhere; K21.9 Gastro-esophageal reflux disease without esophagitis; M86.8X7 Other osteomyelitis, ankle and foot; G82.50 Quadriplegia, unspecified; I10 Essential (primary) hypertension; E11.51 Type 2 diabetes mellitus with diabetic peripheral angiopathy without gangrene; E78.00 Pure hypercholesterolemia, unspecified; Z86.718 Personal history of other venous thrombosis and embolism; Z86.73 Personal history of transient ischemic attack (TIA), and cerebral infarction without residual deficits; Z79.82 Long term (current) use of aspirin; Z79.899 Other long term (current) drug therapy; Z88.5 Allergy status to narcotic agent; Z20.822 Contact with and (suspected) exposure to COVID-19; Z79.2 Long term (current) use of antibiotics; Z79.01 Long term (current) use of anticoagulants
CPT/HCPCS: 11042; 11045; G0463

== ENCOUNTER 2022-04-19 15:00 | Inpatient (IN) | payer OTHER ==
[~2022-04-19] VITALS: Ht 154.9 cm; Wt 79.5 kg
[2022-04-19 17:59] LABS: BASOPHILS % (AUTO) 0.4 % (0.0-2.0); EOSINOPHILS % (AUTO) 0.1 % (1.0-6.0); HEMATOCRIT 27.2 % (41-53); HEMOGLOBIN 8.9 g/dL (13.5-17.5); LYMPHOCYTES # (AUTO) 1.4 K/uL (1.0-4.8); LYMPHOCYTES % (AUTO) 9.5 % (22.0-44.0); MEAN CORPUSCULAR HEMOGLOBIN 27.9 pg (26.0-34.0); MEAN CORPUSCULAR HGB CONC 32.8 G/dL (31.0-37.0); MEAN CORPUSCULAR VOLUME 85 fL (80-100); MONOCYTES # (AUTO) 1.6 K/uL (0.1-1.0); MONOCYTES % (AUTO) 10.9 % (2.0-9.0); NEUTROPHILS # (AUTO) 11.7 K/uL (1.8-7.7); NEUTROPHILS % (AUTO) 79.1 % (40.0-70.0); PLATELET COUNT (AUTO) 512 K/uL (150-450); RED BLOOD CELL COUNT(AUTO) 3.19 MIL/uL (4.50-5.90); RED CELL DISTRIBUTION WIDTH 17.2 % (11.5-14.5)
[2022-04-19 18:08] LABS: ANION GAP 14 mmol/L (8-16); CALCIUM, TOTAL 9.3 mg/dL (8.8-10.5); CARBON DIOXIDE 25 mmol/L (22-29); CHLORIDE 96 mmol/L (98-107); GLUCOSE,RANDOM 88 mg/dL (70-110); INR 1.1 (0.9-1.1); POTASSIUM 3.9 mmol/L (3.5-5.1); SODIUM SERUM 135 mmol/L (136-145); UREA NITROGEN, BLOOD 12 mg/dL (7-18)
[2022-04-19 18:11] LABS: GLOMERULAR FILTR. RATE CALC > 60 mL/min (>60)
[2022-04-19 18:13] LABS: ALANINE AMINOTRANSFERASE 35 U/L (12-78); ALBUMIN 2.2 g/dL (3.4-5.0); ALKALINE PHOSPHATASE 105 U/L (46-116); ASPARTATE AMINOTRANSFERASE 29 U/L (15-37); BILIRUBIN,TOTAL 0.6 mg/dL (0.1-1.0); TOTAL PROTEIN, SERUM 8.8 g/dL (6.4-8.2)
[2022-04-19 18:16] LABS: LACTIC ACID 1.4 mmol/L (0.4-2.0)
[2022-04-19] MEDS ORDERED: VANCOMYCIN 1GM/WATER(PEG/NADA) 200 ML IV ONE (18:45)
[2022-04-19 18:48] LABS: APPEARANCE,URINE HAZY (CLEAR); BILIRUBIN,URINE NEGATIVE (NEGATIVE); GLUCOSE, URINE (UA) NEGATIVE (NEGATIVE); LEUKOCYTE ESTERASE ,URINE SMALL (NEGATIVE); NITRATE,URINE NEGATIVE (NEGATIVE); OCCULT BLOOD,URINE NEGATIVE (NEGATIVE); PROTEIN,URINE 30-70 mg/dL (NEGATIVE); SPECIFIC GRAVITIY, URINE 1.022 (1.003-1.030); UROBILINOGEN,URINE <=1.0 mg/dL (<=1.0)
[2022-04-19 19:13] LABS: TRIPLE PHOSPHATE CRYSTAL,UR Few /LPF (None Seen)
[2022-04-19 19:14] LABS: BACTERIA,URINE Moderate /HPF (None Seen); RBC,URINE 0-2 /HPF (0-2)
[2022-04-19 19:26] LABS: COVID AG,FIA SOURCE NASAL SWAB
[2022-04-19] MEDS ORDERED: IOHEXOL 300 MG/ML 100 ML VIAL ONE (19:52)
[2022-04-19] MEDS ORDERED: SODIUM CHLORIDE 0.9% 100 ML ONE (19:52)
[2022-04-19] MEDS ORDERED: SODIUM CHLORIDE 0.9% 1,000 ML IV ONE (21:30)
[2022-04-19] MEDS ORDERED: BISACODYL 10 MG RECTAL RECTAL SUPPOSITORY PR PRN (21:30)
[2022-04-19] MEDS ORDERED: ZOLPIDEM TARTRATE 5 MG TABLET PO PRN (21:30)
[2022-04-20 00:54] LABS: BASOPHILS % (AUTO) 0.6 % (0.0-2.0); EOSINOPHILS % (AUTO) 0.3 % (1.0-6.0); HEMATOCRIT 23.6 % (41-53); HEMOGLOBIN 7.7 g/dL (13.5-17.5); LYMPHOCYTES # (AUTO) 1.7 K/uL (1.0-4.8); LYMPHOCYTES % (AUTO) 12.1 % (22.0-44.0); MEAN CORPUSCULAR HEMOGLOBIN 27.8 pg (26.0-34.0); MEAN CORPUSCULAR HGB CONC 32.9 G/dL (31.0-37.0); MEAN CORPUSCULAR VOLUME 85 fL (80-100); MONOCYTES # (AUTO) 2.3 K/uL (0.1-1.0); MONOCYTES % (AUTO) 16.9 % (2.0-9.0); NEUTROPHILS # (AUTO) 9.7 K/uL (1.8-7.7); NEUTROPHILS % (AUTO) 70.1 % (40.0-70.0); PLATELET COUNT (AUTO) 425 K/uL (150-450); RED BLOOD CELL COUNT(AUTO) 2.78 MIL/uL (4.50-5.90); RED CELL DISTRIBUTION WIDTH 16.6 % (11.5-14.5)
[2022-04-20 01:06] LABS: ANION GAP 9 mmol/L (8-16); CALCIUM, TOTAL 8.7 mg/dL (8.8-10.5); CARBON DIOXIDE 26 mmol/L (22-29); CHLORIDE 99 mmol/L (98-107); CREATININE 0.73 mg/dL (0.60-1.30); GLOMERULAR FILTR. RATE CALC > 60 mL/min (>60); GLUCOSE,RANDOM 86 mg/dL (70-110); POTASSIUM 3.9 mmol/L (3.5-5.1); SODIUM SERUM 134 mmol/L (136-145); UREA NITROGEN, BLOOD 14 mg/dL (7-18)
[2022-04-20] MEDS ORDERED: VANCOMYCIN HCL 500 MG in DEXTROSE 5%-WATER 100 ML IV ONE (01:45)
[2022-04-20] MEDS: HEPARIN SODIUM,PORCINE 5,000 UNITS/ML VIAL SQ SCH ×3 (02:12→16:34)
[2022-04-20] MEDS: VANCOMYCIN HCL 750 MG in DEXTROSE 5%-WATER 250 ML IV SCH ×2 (07:19→16:33)
[2022-04-20 08:33] VITALS: BP 120/72
[2022-04-20] MEDS: METHOCARBAMOL 500 MG TABLET PO SCH ×3 (09:00→20:22)
[2022-04-20] MEDS ORDERED: PANTOPRAZOLE SODIUM 40 MG DR TABLET PO SCH (09:00)
[2022-04-20] MEDS: FUROSEMIDE 40 MG TABLET PO SCH (11:14)
[2022-04-20] MEDS: ASCORBIC ACID 500 MG TABLET PO SCH (11:14)
[2022-04-20] MEDS: OMEPRAZOLE 20 MG CAPSULE PO SCH ×2 (11:14→20:22)
[2022-04-20] MEDS: POTASSIUM CHLORIDE 8 MEQ ER TABLET PO SCH (11:17)
[2022-04-20] MEDS: DOCUSATE SODIUM 100 MG CAPSULE PO SCH ×2 (11:18→20:22)
[2022-04-20] MEDS: ATENOLOL 25 MG TABLET PO SCH (11:23)
[2022-04-20] MEDS ORDERED: SODIUM CHLORIDE 0.9% IRRIG BTL 1,000 ML IRRIG ONE (15:12)
[2022-04-20 16:00] VITALS: BP 125/65
[2022-04-20] MEDS ORDERED: SODIUM CHLORIDE 0.9% 500 ML IV ONE (16:18)
[2022-04-20] MEDS ORDERED: OxyCODONE HCL/ACETAMINOPHEN 5-325 MG TABLET PO SCH (18:00)
[2022-04-20 19:30] VITALS: BP 115/59
[2022-04-20] MEDS: OxyCODONE HCL/ACETAMINOPHEN 5-325 MG TABLET PO PRN (20:23)
[2022-04-21] MEDS: HEPARIN SODIUM,PORCINE 5,000 UNITS/ML VIAL SQ SCH ×4 (01:01→23:31)
[2022-04-21] MEDS: VANCOMYCIN HCL 750 MG in DEXTROSE 5%-WATER 250 ML IV SCH ×2 (01:01→08:15)
[2022-04-21 04:10] VITALS: BP 112/60
[2022-04-21 08:06] VITALS: BP 130/71
[2022-04-21 08:08] LABS: BASOPHILS % (AUTO) 0.7 % (0.0-2.0); EOSINOPHILS % (AUTO) 2.1 % (1.0-6.0); HEMATOCRIT 26.2 % (41-53); HEMOGLOBIN 8.7 g/dL (13.5-17.5); LYMPHOCYTES # (AUTO) 1.7 K/uL (1.0-4.8); LYMPHOCYTES % (AUTO) 21.5 % (22.0-44.0); MEAN CORPUSCULAR HGB CONC 33.3 G/dL (31.0-37.0); MEAN CORPUSCULAR VOLUME 84 fL (80-100); MONOCYTES # (AUTO) 1.1 K/uL (0.1-1.0); NEUTROPHILS # (AUTO) 4.8 K/uL (1.8-7.7); NEUTROPHILS % (AUTO) 61.7 % (40.0-70.0); PLATELET COUNT (AUTO) 509 K/uL (150-450); RED BLOOD CELL COUNT(AUTO) 3.11 MIL/uL (4.50-5.90); RED CELL DISTRIBUTION WIDTH 16.5 % (11.5-14.5)
[2022-04-21] MEDS: ATENOLOL 25 MG TABLET PO SCH (08:15)
[2022-04-21] MEDS: FUROSEMIDE 40 MG TABLET PO SCH (08:15)
[2022-04-21] MEDS: ONDANSETRON HCL 4 MG/2 ML VIAL IVP PRN (08:15)
[2022-04-21] MEDS: OMEPRAZOLE 20 MG CAPSULE PO SCH ×2 (08:15→20:57)
[2022-04-21] MEDS: POTASSIUM CHLORIDE 8 MEQ ER TABLET PO SCH (08:15)
[2022-04-21] MEDS: DOCUSATE SODIUM 100 MG CAPSULE PO SCH ×2 (08:15→20:57)
[2022-04-21] MEDS: ASCORBIC ACID 500 MG TABLET PO SCH (08:16)
[2022-04-21] MEDS: METHOCARBAMOL 500 MG TABLET PO SCH ×3 (08:16→20:58)
[2022-04-21 08:24] LABS: ANION GAP 9 mmol/L (8-16); CALCIUM, TOTAL 9.2 mg/dL (8.8-10.5); CARBON DIOXIDE 28 mmol/L (22-29); CHLORIDE 99 mmol/L (98-107); CREATININE 0.69 mg/dL (0.60-1.30); GLOMERULAR FILTR. RATE CALC > 60 mL/min (>60); GLUCOSE,RANDOM 102 mg/dL (70-110); POTASSIUM 3.6 mmol/L (3.5-5.1); SODIUM SERUM 136 mmol/L (136-145); UREA NITROGEN, BLOOD 9 mg/dL (7-18); VANCOMYCIN,RANDOM 23.1 mcg/mL (25.0-50.0)
[2022-04-21] MEDS: ACETAMINOPHEN 325 MG TABLET PO PRN (08:27)
[2022-04-21] MEDS ORDERED: SODIUM CHLORIDE 0.9% IRRIG BTL 1,000 ML IRRIG ONE (15:33)
[2022-04-21] MEDS: OxyCODONE HCL/ACETAMINOPHEN 5-325 MG TABLET PO PRN ×2 (15:38→23:53)
[2022-04-21 15:52] VITALS: BP 110/68
[2022-04-21 19:15] VITALS: BP 102/53
[2022-04-21] MEDS: VANCOMYCIN HCL 1 GM in DEXTROSE 5%-WATER 250 ML IV SCH (20:56)
[2022-04-21 23:53] VITALS: BP 104/57
[2022-04-22 04:52] VITALS: BP 123/68
[2022-04-22 06:54] LABS: BASOPHILS % (AUTO) 0.8 % (0.0-2.0); EOSINOPHILS % (AUTO) 3.4 % (1.0-6.0); HEMATOCRIT 23.6 % (41-53); LYMPHOCYTES # (AUTO) 1.8 K/uL (1.0-4.8); LYMPHOCYTES % (AUTO) 25.5 % (22.0-44.0); MEAN CORPUSCULAR HEMOGLOBIN 28.9 pg (26.0-34.0); MEAN CORPUSCULAR VOLUME 85 fL (80-100); MONOCYTES # (AUTO) 0.9 K/uL (0.1-1.0); MONOCYTES % (AUTO) 13.1 % (2.0-9.0); NEUTROPHILS % (AUTO) 57.2 % (40.0-70.0); PLATELET COUNT (AUTO) 481 K/uL (150-450); RED BLOOD CELL COUNT(AUTO) 2.77 MIL/uL (4.50-5.90); RED CELL DISTRIBUTION WIDTH 17.1 % (11.5-14.5)
[2022-04-22 07:08] LABS: ANION GAP 8 mmol/L (8-16); CALCIUM, TOTAL 9.2 mg/dL (8.8-10.5); CARBON DIOXIDE 28 mmol/L (22-29); CHLORIDE 101 mmol/L (98-107); CREATININE 0.66 mg/dL (0.60-1.30); GLOMERULAR FILTR. RATE CALC > 60 mL/min (>60); GLUCOSE,RANDOM 97 mg/dL (70-110); SODIUM SERUM 137 mmol/L (136-145); UREA NITROGEN, BLOOD 9 mg/dL (7-18)
[2022-04-22 08:15] VITALS: BP 119/45
[2022-04-22] MEDS: VANCOMYCIN HCL 1 GM in DEXTROSE 5%-WATER 250 ML IV SCH ×2 (08:21→20:12)
[2022-04-22] MEDS: OxyCODONE HCL/ACETAMINOPHEN 5-325 MG TABLET PO PRN ×3 (08:22→23:01)
[2022-04-22] MEDS: ATENOLOL 25 MG TABLET PO SCH (08:24)
[2022-04-22] MEDS: METHOCARBAMOL 500 MG TABLET PO SCH ×2 (08:24→20:14)
[2022-04-22] MEDS: FUROSEMIDE 40 MG TABLET PO SCH (08:24)
[2022-04-22] MEDS: POTASSIUM CHLORIDE 8 MEQ ER TABLET PO SCH (08:24)
[2022-04-22] MEDS: ASCORBIC ACID 500 MG TABLET PO SCH (08:24)
[2022-04-22] MEDS: DOCUSATE SODIUM 100 MG CAPSULE PO SCH ×2 (08:24→20:12)
[2022-04-22] MEDS: OMEPRAZOLE 20 MG CAPSULE PO SCH ×2 (08:24→20:12)
[2022-04-22] MEDS: HEPARIN SODIUM,PORCINE 5,000 UNITS/ML VIAL SQ SCH ×3 (08:24→22:59)
[2022-04-22] MEDS: MAGNESIUM HYDROXIDE SUSPENSION 30 ML UDCUP PO PRN (08:34)
[2022-04-22 11:22] VITALS: BP 123/65
[2022-04-22] MEDS ORDERED: DULoxetine HCL 20 MG CAPSULE PO SCH (11:30)
[2022-04-22] MEDS: DULoxetine HCL 30 MG CAPSULE PO SCH (12:24)
[2022-04-22] MEDS: ONDANSETRON HCL 4 MG/2 ML VIAL IVP PRN (12:38)
[2022-04-22 16:40] VITALS: BP 126/97
[2022-04-22 20:00] VITALS: BP 105/55
[2022-04-23 04:00] VITALS: BP 122/73
[2022-04-23 06:57] LABS: ANION GAP 7 mmol/L (8-16); CALCIUM, TOTAL 9.1 mg/dL (8.8-10.5); CARBON DIOXIDE 28 mmol/L (22-29); CHLORIDE 101 mmol/L (98-107); CREATININE 0.63 mg/dL (0.60-1.30); GLUCOSE,RANDOM 102 mg/dL (70-110); POTASSIUM 4.4 mmol/L (3.5-5.1); SODIUM SERUM 136 mmol/L (136-145); UREA NITROGEN, BLOOD 10 mg/dL (7-18); VANCOMYCIN,RANDOM 19.5 mcg/mL (25.0-50.0)
[2022-04-23 07:00] LABS: GLOMERULAR FILTR. RATE CALC > 60 mL/min (>60)
[2022-04-23 07:28] VITALS: BP 114/62
[2022-04-23] MEDS: MAGNESIUM HYDROXIDE SUSPENSION 30 ML UDCUP PO PRN (08:34)
[2022-04-23] MEDS: HEPARIN SODIUM,PORCINE 5,000 UNITS/ML VIAL SQ SCH ×3 (08:35→23:37)
[2022-04-23] MEDS: OxyCODONE HCL/ACETAMINOPHEN 5-325 MG TABLET PO PRN ×2 (08:35→20:56)
[2022-04-23] MEDS: ATENOLOL 25 MG TABLET PO SCH (08:35)
[2022-04-23] MEDS: OMEPRAZOLE 20 MG CAPSULE PO SCH ×2 (08:35→20:54)
[2022-04-23] MEDS: ASCORBIC ACID 500 MG TABLET PO SCH (08:35)
[2022-04-23] MEDS: DOCUSATE SODIUM 100 MG CAPSULE PO SCH ×2 (08:35→21:00)
[2022-04-23] MEDS: POTASSIUM CHLORIDE 8 MEQ ER TABLET PO SCH (08:35)
[2022-04-23] MEDS: DULoxetine HCL 30 MG CAPSULE PO SCH (08:35)
[2022-04-23] MEDS: FUROSEMIDE 40 MG TABLET PO SCH (08:35)
[2022-04-23] MEDS: ONDANSETRON HCL 4 MG/2 ML VIAL IVP PRN ×2 (08:35→18:37)
[2022-04-23] MEDS: METHOCARBAMOL 500 MG TABLET PO SCH ×2 (08:37→20:55)
[2022-04-23] MEDS: COLLAGENASE 250 UNITS/GM 30 GM OINTMENT TP SCH (09:00)
[2022-04-23] MEDS: VANCOMYCIN HCL 1 GM in DEXTROSE 5%-WATER 250 ML IV SCH ×2 (10:22→20:54)
[2022-04-23 15:31] VITALS: BP 125/66
[2022-04-23 20:12] VITALS: BP 116/60
[2022-04-24 04:10] VITALS: BP 126/65
[2022-04-24 08:00] VITALS: BP 115/64
[2022-04-24] MEDS: HEPARIN SODIUM,PORCINE 5,000 UNITS/ML VIAL SQ SCH ×2 (08:00→16:52)
[2022-04-24] MEDS: VANCOMYCIN HCL 1 GM in DEXTROSE 5%-WATER 250 ML IV SCH (08:00)
[2022-04-24] MEDS: ATENOLOL 25 MG TABLET PO SCH (09:00)
[2022-04-24 09:49] LABS: ANION GAP 6 mmol/L (8-16); CALCIUM, TOTAL 9.2 mg/dL (8.8-10.5); CARBON DIOXIDE 27 mmol/L (22-29); CHLORIDE 101 mmol/L (98-107); CREATININE 0.73 mg/dL (0.60-1.30); GLOMERULAR FILTR. RATE CALC > 60 mL/min (>60); GLUCOSE,RANDOM 134 mg/dL (70-110); POTASSIUM 3.9 mmol/L (3.5-5.1); SODIUM SERUM 134 mmol/L (136-145); UREA NITROGEN, BLOOD 8 mg/dL (7-18)
[2022-04-24] MEDS: DULoxetine HCL 30 MG CAPSULE PO SCH (10:30)
[2022-04-24] MEDS: DOCUSATE SODIUM 100 MG CAPSULE PO SCH ×2 (10:30→20:44)
[2022-04-24] MEDS: METHOCARBAMOL 500 MG TABLET PO SCH ×2 (10:30→20:55)
[2022-04-24] MEDS: POTASSIUM CHLORIDE 8 MEQ ER TABLET PO SCH (10:30)
[2022-04-24] MEDS: FUROSEMIDE 40 MG TABLET PO SCH (10:30)
[2022-04-24] MEDS: OMEPRAZOLE 20 MG CAPSULE PO SCH ×2 (10:30→20:44)
[2022-04-24] MEDS: ASCORBIC ACID 500 MG TABLET PO SCH (10:31)
[2022-04-24] MEDS: COLLAGENASE 250 UNITS/GM 30 GM OINTMENT TP SCH (10:31)
[2022-04-24] MEDS: LACTOBAC ACID/BULG/BIFID/THERM TABLET PO SCH ×2 (11:38→20:55)
[2022-04-24 16:00] VITALS: BP 109/53
[2022-04-24] MEDS: FERROUS SULFATE 325 MG EC TABLET PO SCH (16:52)
[2022-04-24] MEDS: ONDANSETRON HCL 4 MG/2 ML VIAL IVP PRN (16:52)
[2022-04-24] MEDS ORDERED: CefTRIAXone SODIUM 1 GM/VIAL IV SCH (18:00)
[2022-04-24] MEDS: CefTRIAXone 1 GM/DEXTROSE 50 ML IV SCH (19:16)
[2022-04-24 19:35] VITALS: BP 117/66
[2022-04-24] MEDS: ZINC SULFATE 220 MG CAPSULE PO SCH (20:44)
[2022-04-24] MEDS: OxyCODONE HCL/ACETAMINOPHEN 5-325 MG TABLET PO PRN (20:55)
[2022-04-25] MEDS: HEPARIN SODIUM,PORCINE 5,000 UNITS/ML VIAL SQ SCH ×4 (00:36→23:31)
[2022-04-25 04:05] VITALS: BP 131/73
[2022-04-25] MEDS: OxyCODONE HCL/ACETAMINOPHEN 5-325 MG TABLET PO PRN ×3 (05:08→23:32)
[2022-04-25] MEDS: ONDANSETRON HCL 4 MG/2 ML VIAL IVP PRN (05:24)
[2022-04-25 08:10] VITALS: BP 128/74
[2022-04-25 08:17] LABS: ANION GAP 8 mmol/L (8-16); CALCIUM, TOTAL 9.1 mg/dL (8.8-10.5); CARBON DIOXIDE 27 mmol/L (22-29); CHLORIDE 102 mmol/L (98-107); CREATININE 0.63 mg/dL (0.60-1.30); GLUCOSE,RANDOM 93 mg/dL (70-110); SODIUM SERUM 137 mmol/L (136-145); UREA NITROGEN, BLOOD 9 mg/dL (7-18)
[2022-04-25 08:19] LABS: GLOMERULAR FILTR. RATE CALC > 60 mL/min (>60)
[2022-04-25] MEDS: DOCUSATE SODIUM 100 MG CAPSULE PO SCH ×2 (08:23→20:02)
[2022-04-25] MEDS: FUROSEMIDE 40 MG TABLET PO SCH (08:24)
[2022-04-25] MEDS: ATENOLOL 25 MG TABLET PO SCH (08:24)
[2022-04-25] MEDS: ASCORBIC ACID 500 MG TABLET PO SCH (08:24)
[2022-04-25] MEDS: ZINC SULFATE 220 MG CAPSULE PO SCH ×2 (08:24→20:02)
[2022-04-25] MEDS: OMEPRAZOLE 20 MG CAPSULE PO SCH ×2 (08:24→20:02)
[2022-04-25] MEDS: FERROUS SULFATE 325 MG EC TABLET PO SCH ×2 (08:24→17:30)
[2022-04-25] MEDS: DULoxetine HCL 30 MG CAPSULE PO SCH (08:24)
[2022-04-25] MEDS: POTASSIUM CHLORIDE 8 MEQ ER TABLET PO SCH (08:25)
[2022-04-25] MEDS: LACTOBAC ACID/BULG/BIFID/THERM TABLET PO SCH ×2 (08:27→20:02)
[2022-04-25] MEDS: METHOCARBAMOL 500 MG TABLET PO SCH ×2 (08:30→20:02)
[2022-04-25] MEDS: VANCOMYCIN HCL 1 GM in DEXTROSE 5%-WATER 250 ML IV ONE ×2 (11:59→18:00)
[2022-04-25 16:04] VITALS: BP 124/76
[2022-04-25] MEDS: COLLAGENASE 250 UNITS/GM 30 GM OINTMENT TP SCH (17:31)
[2022-04-25] MEDS ORDERED: SODIUM CHLORIDE 0.9% 500 ML IV ONE (17:36)
[2022-04-25 20:00] VITALS: BP 115/67
[2022-04-25] MEDS: CefTRIAXone 1 GM/DEXTROSE 50 ML IV SCH (20:01)
[2022-04-26 04:00] VITALS: BP 125/77
[2022-04-26 07:57] VITALS: BP 117/59
[2022-04-26] MEDS: DULoxetine HCL 30 MG CAPSULE PO SCH (08:16)
[2022-04-26] MEDS: ATENOLOL 25 MG TABLET PO SCH (08:17)
[2022-04-26] MEDS: ZINC SULFATE 220 MG CAPSULE PO SCH ×2 (08:17→20:06)
[2022-04-26] MEDS: LACTOBAC ACID/BULG/BIFID/THERM TABLET PO SCH ×2 (08:17→20:06)
[2022-04-26] MEDS: FUROSEMIDE 40 MG TABLET PO SCH (08:17)
[2022-04-26] MEDS: HEPARIN SODIUM,PORCINE 5,000 UNITS/ML VIAL SQ SCH ×2 (08:18→15:59)
[2022-04-26] MEDS: ASCORBIC ACID 500 MG TABLET PO SCH (08:18)
[2022-04-26] MEDS: FERROUS SULFATE 325 MG EC TABLET PO SCH ×2 (08:18→17:27)
[2022-04-26] MEDS: DOCUSATE SODIUM 100 MG CAPSULE PO SCH ×2 (08:18→20:06)
[2022-04-26] MEDS: METHOCARBAMOL 500 MG TABLET PO SCH ×2 (08:18→20:06)
[2022-04-26] MEDS: OMEPRAZOLE 20 MG CAPSULE PO SCH ×2 (08:18→20:06)
[2022-04-26] MEDS: POTASSIUM CHLORIDE 8 MEQ ER TABLET PO SCH (08:18)
[2022-04-26] MEDS: ACETAMINOPHEN 325 MG TABLET PO PRN (08:19)
[2022-04-26] MEDS: VANCOMYCIN HCL 1 GM in DEXTROSE 5%-WATER 250 ML IV SCH ×2 (08:21→20:06)
[2022-04-26] MEDS: MAGNESIUM HYDROXIDE SUSPENSION 30 ML UDCUP PO PRN (08:26)
[2022-04-26 11:20] LABS: ANION GAP 6 mmol/L (8-16); CALCIUM, TOTAL 8.8 mg/dL (8.8-10.5); CARBON DIOXIDE 26 mmol/L (22-29); CHLORIDE 101 mmol/L (98-107); CREATININE 0.64 mg/dL (0.60-1.30); GLOMERULAR FILTR. RATE CALC > 60 mL/min (>60); GLUCOSE,RANDOM 111 mg/dL (70-110); SODIUM SERUM 133 mmol/L (136-145); UREA NITROGEN, BLOOD 11 mg/dL (7-18)
[2022-04-26] MEDS: COLLAGENASE 250 UNITS/GM 30 GM OINTMENT TP SCH (14:46)
[2022-04-26] MEDS: MetroNIDAZOLE 500 MG TABLET PO SCH ×2 (15:59→20:06)
[2022-04-26 16:16] VITALS: BP 114/60
[2022-04-26] MEDS: CefTRIAXone 1 GM/DEXTROSE 50 ML IV SCH (17:27)
[2022-04-26 19:57] VITALS: BP 124/74
[2022-04-26 23:55] VITALS: BP 145/74
[2022-04-26] MEDS: OxyCODONE HCL/ACETAMINOPHEN 5-325 MG TABLET PO PRN (23:55)
[2022-04-27] MEDS: ONDANSETRON HCL 4 MG/2 ML VIAL IVP PRN ×3 (01:29→22:39)
[2022-04-27 04:16] VITALS: BP 120/64
[2022-04-27 07:23] VITALS: BP 130/68
[2022-04-27 08:07] LABS: ANION GAP 7 mmol/L (8-16); CALCIUM, TOTAL 9.3 mg/dL (8.8-10.5); CARBON DIOXIDE 28 mmol/L (22-29); CHLORIDE 102 mmol/L (98-107); CREATININE 0.67 mg/dL (0.60-1.30); GLUCOSE,RANDOM 118 mg/dL (70-110); POTASSIUM 4.2 mmol/L (3.5-5.1); SODIUM SERUM 137 mmol/L (136-145); UREA NITROGEN, BLOOD 14 mg/dL (7-18); VANCOMYCIN,RANDOM 17.5 mcg/mL (25.0-50.0)
[2022-04-27 08:10] LABS: GLOMERULAR FILTR. RATE CALC > 60 mL/min (>60)
[2022-04-27] MEDS: FUROSEMIDE 40 MG TABLET PO SCH (08:34)
[2022-04-27] MEDS: OMEPRAZOLE 20 MG CAPSULE PO SCH ×2 (08:34→20:10)
[2022-04-27] MEDS: ATENOLOL 25 MG TABLET PO SCH (08:34)
[2022-04-27] MEDS: FERROUS SULFATE 325 MG EC TABLET PO SCH ×2 (08:34→17:47)
[2022-04-27] MEDS: ZINC SULFATE 220 MG CAPSULE PO SCH ×2 (08:34→20:10)
[2022-04-27] MEDS: ASCORBIC ACID 500 MG TABLET PO SCH (08:34)
[2022-04-27] MEDS: DULoxetine HCL 30 MG CAPSULE PO SCH (08:34)
[2022-04-27] MEDS: POTASSIUM CHLORIDE 8 MEQ ER TABLET PO SCH (08:34)
[2022-04-27] MEDS: DOCUSATE SODIUM 100 MG CAPSULE PO SCH ×2 (08:35→20:10)
[2022-04-27] MEDS: HEPARIN SODIUM,PORCINE 5,000 UNITS/ML VIAL SQ SCH ×3 (08:35→16:25)
[2022-04-27] MEDS: MetroNIDAZOLE 500 MG TABLET PO SCH ×3 (08:38→20:10)
[2022-04-27] MEDS: LACTOBAC ACID/BULG/BIFID/THERM TABLET PO SCH ×2 (08:38→20:10)
[2022-04-27] MEDS: METHOCARBAMOL 500 MG TABLET PO SCH ×2 (08:39→20:10)
[2022-04-27] MEDS: VANCOMYCIN HCL 1 GM in DEXTROSE 5%-WATER 250 ML IV SCH ×2 (08:40→20:10)
[2022-04-27] MEDS: COLLAGENASE 250 UNITS/GM 30 GM OINTMENT TP SCH (09:02)
[2022-04-27 15:07] VITALS: BP 132/72
[2022-04-27] MEDS: MAGNESIUM HYDROXIDE SUSPENSION 30 ML UDCUP PO PRN (16:25)
[2022-04-27] MEDS: CefTRIAXone 1 GM/DEXTROSE 50 ML IV SCH (17:47)
[2022-04-27 20:06] VITALS: BP 130/71
[2022-04-27] MEDS: OxyCODONE HCL/ACETAMINOPHEN 5-325 MG TABLET PO PRN (22:32)
[2022-04-28] MEDS: HEPARIN SODIUM,PORCINE 5,000 UNITS/ML VIAL SQ SCH ×4 (00:17→23:28)
[2022-04-28 04:16] VITALS: BP 119/71
[2022-04-28] MEDS: ONDANSETRON HCL 4 MG/2 ML VIAL IVP PRN ×2 (07:26→19:18)
[2022-04-28] MEDS: OMEPRAZOLE 20 MG CAPSULE PO SCH ×2 (07:26→20:02)
[2022-04-28] MEDS: ATENOLOL 25 MG TABLET PO SCH (07:27)
[2022-04-28] MEDS: LACTOBAC ACID/BULG/BIFID/THERM TABLET PO SCH ×2 (07:27→20:02)
[2022-04-28] MEDS: ZINC SULFATE 220 MG CAPSULE PO SCH ×2 (07:27→20:03)
[2022-04-28] MEDS: FUROSEMIDE 40 MG TABLET PO SCH (07:27)
[2022-04-28] MEDS: DOCUSATE SODIUM 100 MG CAPSULE PO SCH ×2 (07:27→20:02)
[2022-04-28] MEDS: DULoxetine HCL 30 MG CAPSULE PO SCH (07:27)
[2022-04-28] MEDS: FERROUS SULFATE 325 MG EC TABLET PO SCH ×2 (07:27→17:51)
[2022-04-28] MEDS: METHOCARBAMOL 500 MG TABLET PO SCH ×2 (07:27→20:03)
[2022-04-28] MEDS: MetroNIDAZOLE 500 MG TABLET PO SCH ×3 (07:27→20:03)
[2022-04-28] MEDS: ASCORBIC ACID 500 MG TABLET PO SCH (07:27)
[2022-04-28] MEDS: COLLAGENASE 250 UNITS/GM 30 GM OINTMENT TP SCH (07:28)
[2022-04-28] MEDS: VANCOMYCIN HCL 1 GM in DEXTROSE 5%-WATER 250 ML IV SCH ×2 (07:28→20:02)
[2022-04-28] MEDS: POTASSIUM CHLORIDE 8 MEQ ER TABLET PO SCH (07:28)
[2022-04-28 07:54] VITALS: BP 148/71
[2022-04-28 09:18] LABS: ANION GAP 7 mmol/L (8-16); CALCIUM, TOTAL 9.1 mg/dL (8.8-10.5); CARBON DIOXIDE 28 mmol/L (22-29); CHLORIDE 98 mmol/L (98-107); CREATININE 0.71 mg/dL (0.60-1.30); GLUCOSE,RANDOM 118 mg/dL (70-110); POTASSIUM 3.9 mmol/L (3.5-5.1); SODIUM SERUM 133 mmol/L (136-145); UREA NITROGEN, BLOOD 14 mg/dL (7-18)
[2022-04-28 09:20] LABS: GLOMERULAR FILTR. RATE CALC > 60 mL/min (>60)
[2022-04-28 10:48] LABS: COVID AG,FIA SOURCE NASOPHARYNGEAL
[2022-04-28 16:02] VITALS: BP 118/57
[2022-04-28] MEDS: CefTRIAXone 1 GM/DEXTROSE 50 ML IV SCH (17:51)
[2022-04-28 20:00] VITALS: BP 121/66
[2022-04-28] MEDS: OxyCODONE HCL/ACETAMINOPHEN 5-325 MG TABLET PO PRN (23:33)
[2022-04-29 04:55] VITALS: BP 140/70
[2022-04-29] MEDS: METOCLOPRAMIDE HCL 5 MG/ML 2 ML VIAL IVP PRN ×2 (06:04→17:33)
[2022-04-29 07:19] VITALS: BP 122/62
[2022-04-29] MEDS: FERROUS SULFATE 325 MG EC TABLET PO SCH ×2 (08:28→17:30)
[2022-04-29] MEDS: METHOCARBAMOL 500 MG TABLET PO SCH ×2 (08:28→20:14)
[2022-04-29] MEDS: ASCORBIC ACID 500 MG TABLET PO SCH (08:28)
[2022-04-29] MEDS: OMEPRAZOLE 20 MG CAPSULE PO SCH ×2 (08:28→20:15)
[2022-04-29] MEDS: DULoxetine HCL 30 MG CAPSULE PO SCH (08:28)
[2022-04-29] MEDS: POTASSIUM CHLORIDE 8 MEQ ER TABLET PO SCH (08:28)
[2022-04-29] MEDS: VANCOMYCIN HCL 1 GM in DEXTROSE 5%-WATER 250 ML IV SCH ×2 (08:28→20:12)
[2022-04-29] MEDS: ZINC SULFATE 220 MG CAPSULE PO SCH ×2 (08:28→20:14)
[2022-04-29] MEDS: ATENOLOL 25 MG TABLET PO SCH (08:29)
[2022-04-29] MEDS: LACTOBAC ACID/BULG/BIFID/THERM TABLET PO SCH ×2 (08:29→20:15)
[2022-04-29] MEDS: MetroNIDAZOLE 500 MG TABLET PO SCH ×3 (08:29→20:14)
[2022-04-29] MEDS: FUROSEMIDE 40 MG TABLET PO SCH (08:29)
[2022-04-29] MEDS: DOCUSATE SODIUM 100 MG CAPSULE PO SCH ×2 (08:29→20:19)
[2022-04-29] MEDS: HEPARIN SODIUM,PORCINE 5,000 UNITS/ML VIAL SQ SCH ×3 (08:30→23:09)
[2022-04-29 11:39] LABS: ANION GAP 7 mmol/L (8-16); CALCIUM, TOTAL 9.7 mg/dL (8.8-10.5); CARBON DIOXIDE 27 mmol/L (22-29); CHLORIDE 101 mmol/L (98-107); CREATININE 0.75 mg/dL (0.60-1.30); GLUCOSE,RANDOM 120 mg/dL (70-110); POTASSIUM 4.2 mmol/L (3.5-5.1); SODIUM SERUM 135 mmol/L (136-145); UREA NITROGEN, BLOOD 13 mg/dL (7-18)
[2022-04-29 11:43] LABS: GLOMERULAR FILTR. RATE CALC > 60 mL/min (>60)
[2022-04-29] MEDS: COLLAGENASE 250 UNITS/GM 30 GM OINTMENT TP SCH (14:37)
[2022-04-29 15:46] VITALS: BP 117/54
[2022-04-29] MEDS: CefTRIAXone 1 GM/DEXTROSE 50 ML IV SCH (17:30)
[2022-04-29 19:42] VITALS: BP 118/69
[2022-04-29] MEDS: OxyCODONE HCL/ACETAMINOPHEN 5-325 MG TABLET PO PRN (20:14)
[2022-04-29] MEDS: ONDANSETRON HCL 4 MG/2 ML VIAL IVP PRN (20:19)
[2022-04-30 04:00] VITALS: BP 131/65
[2022-04-30 05:47] LABS: ANION GAP 7 mmol/L (8-16); CARBON DIOXIDE 27 mmol/L (22-29); CHLORIDE 102 mmol/L (98-107); GLUCOSE,RANDOM 97 mg/dL (70-110); POTASSIUM 3.9 mmol/L (3.5-5.1); SODIUM SERUM 136 mmol/L (136-145); UREA NITROGEN, BLOOD 12 mg/dL (7-18); VANCOMYCIN,RANDOM 24.2 mcg/mL (25.0-50.0)
[2022-04-30 05:55] LABS: GLOMERULAR FILTR. RATE CALC > 60 mL/min (>60)
[2022-04-30 07:55] VITALS: BP 136/61
[2022-04-30] MEDS ORDERED: VANCOMYCIN HCL 750 MG in DEXTROSE 5%-WATER 250 ML IV SCH (08:00)
[2022-04-30] MEDS: ASCORBIC ACID 500 MG TABLET PO SCH (08:44)
[2022-04-30] MEDS: DOCUSATE SODIUM 100 MG CAPSULE PO SCH (08:44)
[2022-04-30] MEDS: POTASSIUM CHLORIDE 8 MEQ ER TABLET PO SCH (08:44)
[2022-04-30] MEDS: ATENOLOL 25 MG TABLET PO SCH (08:44)
[2022-04-30] MEDS: MetroNIDAZOLE 500 MG TABLET PO SCH ×2 (08:44→15:58)
[2022-04-30] MEDS: FUROSEMIDE 40 MG TABLET PO SCH (08:45)
[2022-04-30] MEDS: LACTOBAC ACID/BULG/BIFID/THERM TABLET PO SCH (08:45)
[2022-04-30] MEDS: FERROUS SULFATE 325 MG EC TABLET PO SCH ×2 (08:45→17:57)
[2022-04-30] MEDS: DULoxetine HCL 30 MG CAPSULE PO SCH (08:45)
[2022-04-30] MEDS: ZINC SULFATE 220 MG CAPSULE PO SCH (08:45)
[2022-04-30] MEDS: OMEPRAZOLE 20 MG CAPSULE PO SCH (08:45)
[2022-04-30] MEDS: HEPARIN SODIUM,PORCINE 5,000 UNITS/ML VIAL SQ SCH ×2 (08:46→15:59)
[2022-04-30] MEDS: METHOCARBAMOL 500 MG TABLET PO SCH (08:47)
[2022-04-30] MEDS: COLLAGENASE 250 UNITS/GM 30 GM OINTMENT TP SCH (08:48)
[2022-04-30] MEDS ORDERED: SODIUM CHLORIDE 0.9% 500 ML IV ONE (08:55)
[2022-04-30] MEDS ORDERED: MULTIVITAMINS WITH MINERALS, THERAPEUTIC TABLET PO SCH (09:00)
[2022-04-30] MEDS: ONDANSETRON HCL 4 MG/2 ML VIAL IVP PRN (10:46)
[2022-04-30 15:52] VITALS: BP 131/63
[2022-04-30] MEDS ORDERED: CETIRIZINE HCL 10 MG TABLET PO ONE (17:45)
[2022-04-30] MEDS: CefTRIAXone 1 GM/DEXTROSE 50 ML IV SCH (17:57)
[2022-04-30 19:45] LABS: COVID AG,FIA SOURCE NASAL SWAB
== END 2022-04-30 19:55 | DRG 384 ==
LOC: EMS 16:11 → 6N 04-20 06:20
PROVIDERS: ADMIT Internal Medicine; ATTEND Internal Medicine
PROC: 05HY33Z Insertion of Infusion Device into Upper Vein, Percutaneous Approach (ICD-10-PCS; principal; 2022-04-25)
DX: S31.829A Unspecified open wound of left buttock, initial encounter (principal); G82.50 Quadriplegia, unspecified; L89.224 Pressure ulcer of left hip, stage 4; L89.214 Pressure ulcer of right hip, stage 4; E44.0 Moderate protein-calorie malnutrition; I11.0 Hypertensive heart disease with heart failure; L89.324 Pressure ulcer of left buttock, stage 4; L89.314 Pressure ulcer of right buttock, stage 4; I50.9 Heart failure, unspecified; L97.419 Non-pressure chronic ulcer of right heel and midfoot with unspecified severity; L97.429 Non-pressure chronic ulcer of left heel and midfoot with unspecified severity; D63.8 Anemia in other chronic diseases classified elsewhere; B95.0 Streptococcus, group A, as the cause of diseases classified elsewhere; L03.90 Cellulitis, unspecified; E78.00 Pure hypercholesterolemia, unspecified; B95.62 Methicillin resistant Staphylococcus aureus infection as the cause of diseases classified elsewhere; B96.20 Unspecified Escherichia coli [E. coli] as the cause of diseases classified elsewhere; K21.9 Gastro-esophageal reflux disease without esophagitis; Z20.822 Contact with and (suspected) exposure to COVID-19; J45.909 Unspecified asthma, uncomplicated; Z99.3 Dependence on wheelchair; Q05.9 Spina bifida, unspecified; Z86.718 Personal history of other venous thrombosis and embolism; Z88.8 Allergy status to other drugs, medicaments and biological substances; Z88.5 Allergy status to narcotic agent; Z79.899 Other long term (current) drug therapy; Z68.33 Body mass index [BMI] 33.0-33.9, adult
CPT/HCPCS: 36245; 36569; 74177; 76937; 80048; 80053; 80202; 81001; 83605; 85025; 85610; 85730; 87040; 87070; 87086; 87205; 93005; 97162; 97166; 97535; 99285; J0696; J1644; J2405; J3370; J7030; J7040; J7050; J7060; Q9967

== ENCOUNTER 2023-06-02 07:04 | Day surgery (SDC) | payer OTHER ==
[~2023-06-02] VITALS: Ht 154.9 cm; Wt 79.5 kg
[~2023-06-02 07:04] MED LIST changes: -ATEN-73; +CALC200T16 PO; -CALC200T42 PO; +CARV3.1231 PO; -CEFX2I IV; -CETI-450 PO; -ERTA1I IM; -LEVO-72 PO; +LOSA100T59 PO; +POTA-203 PO; +ROSU10TA72 PO; -SLOWK8 PO; -VANC750V2 IV; -VITAMIN D PO; -ZINC50TA64 PO
[2023-06-02] MEDS ORDERED: LIDOCAINE/PF 2% 5 ML VIAL IM ONE (07:05)
[2023-06-02] MEDS ORDERED: PROPOFOL 1% 20 ML VIAL IVP ONE (07:05)
[2023-06-02] MEDS ORDERED: SODIUM CHLORIDE 0.9% 1,000 ML IV ONE (07:30)
== END 2023-06-02 11:50 | disposition home or self-care (01) ==
LOC: SURGERY 07:04
PROVIDERS: ATTEND Internal Medicine Gastroenterology
DX: D12.4 Benign neoplasm of descending colon (principal); K64.9 Unspecified hemorrhoids; K29.70 Gastritis, unspecified, without bleeding; K44.9 Diaphragmatic hernia without obstruction or gangrene; N50.89 Other specified disorders of the male genital organs; K59.00 Constipation, unspecified; K21.9 Gastro-esophageal reflux disease without esophagitis; Z79.899 Other long term (current) drug therapy; Z98.890 Other specified postprocedural states; Z88.6 Allergy status to analgesic agent; Z88.8 Allergy status to other drugs, medicaments and biological substances
CPT/HCPCS: 45385; 43239; 88305; 88312; 88313; C1769; J2704; J3490